=== PATIENT | male | born 1950 | race Caucasian/White ===

== ENCOUNTER 2020-12-03 11:30 | Outpatient (REF) | payer BC, SELFPAY ==
[2020-12-03 12:15] LABS: MANUAL DIFF FLAG NO
[2020-12-03 12:19] LABS: Basophils Absolute Auto 0.1 X10*3/uL (0.0-0.2); Basophils Percent Auto 0.8 % (0-2); Eosinophils Absolute Auto 0.2 X10*3/uL (0.0-0.4); Eosinophils Percent Auto 1.9 % (0-4); Hematocrit 44.9 % (42-52); Hemoglobin 15.6 g/dl (14.0-18.0); Imm Gran Abs Auto 0.04 X10*3/uL (0.00-0.03); Imm Gran Pct Auto 0.5 % (0.0-0.4); Lymphocytes Absolute Auto 2.1 X10*3/uL (1.2-4.9); Lymphocytes Percent Auto 25.8 % (20-40); Mean Corpuscular HGB Conc 34.7 g/dl (31.0-36.0); Mean Corpuscular Hemoglobin 33.1 pg (27.0-33.0); Mean Corpuscular Volume 95.1 fL (80-98); Mean Platelet Volume 10.2 fL (9.4-12.4); Monocytes Absolute Auto 0.9 X10*3/uL (0.1-1.2); Monocytes Percent Auto 11.4 % (2-11); Neutrophils Absolute Auto 4.8 X10*3/uL (2.0-8.3); Neutrophils Percent Auto 59.6 % (45-73); Platelet Count 220 X10*3/uL (160-400); Red Blood Count 4.72 X10*6/uL (4.60-5.80); Red Cell Distribution Width 13.2 % (11.0-16.0)
[2020-12-03 12:55] LABS: Alanine Aminotransferase 42 U/L (0-40); Albumin Level 4.2 g/dL (3.5-5.0); Alkaline Phosphatase 61 U/L (39-117); Anion Gap 13 (12-20); Aspartate Amino Transferase 27 U/L (5-37); Bilirubin Total 0.6 mg/dL (0.0-1.0); Blood Urea Nitrogen 19 mg/dL (9-16); Carbon Dioxide 27 mmol/L (22-29); Chloride 104 mmol/L (96-108); Cholesterol 180 mg/dL; Estimated Glomerular Filt Rate > 60; Glucose Fasting 100 mg/dL (60-99); HDL Cholesterol 55 mg/dL; LDL Cholesterol Calculated 98 mg/dl; Potassium 4.9 mmol/L (3.3-5.1); Sodium 139 mmol/L (135-145); Total Protein 6.6 g/dL (6.5-8.0); Triglycerides 135 mg/dL
[2020-12-03 13:05] LABS: Prostate Specific Antigen < 0.05 ng/mL (<0.05-4.0)
== END 2020-12-03 11:31 | disposition home or self-care (01) ==
LOC: HO.LAB 11:30
PROVIDERS: PCP Internal Medicine Medical Oncology; Visit Provider Internal Medicine Medical Oncology
DX: I10 Essential (primary) hypertension (principal); E78.2 Mixed hyperlipidemia; Z85.46 Personal history of malignant neoplasm of prostate
CPT/HCPCS: 36415; 80053; 80061; 84153; 85025

== ENCOUNTER → 2021-01-24 08:58 | Outpatient (BNVA) | payer BC, MEDICARE, SELFPAY | PROVIDERS: PCP Internal Medicine Medical Oncology; Visit Provider Family Medicine Adult Medicine ==

== ENCOUNTER → 2021-02-07 08:47 | Outpatient (BNVA) | payer BC, SELFPAY | PROVIDERS: PCP Internal Medicine Medical Oncology; Visit Provider Family Medicine Adult Medicine ==

== ENCOUNTER → 2021-03-07 08:55 | Outpatient (BNVA) | payer BC, SELFPAY | PROVIDERS: PCP Internal Medicine Medical Oncology; Visit Provider Family Medicine Adult Medicine ==

== ENCOUNTER → 2021-03-19 14:49 | Outpatient (BNVA) | payer BC, SELFPAY | PROVIDERS: PCP Internal Medicine Medical Oncology; Visit Provider Family Medicine Adult Medicine ==

== ENCOUNTER → 2021-04-16 11:26 | Outpatient (BNVA) | payer BC, SELFPAY | PROVIDERS: PCP Internal Medicine Medical Oncology; Visit Provider Family Medicine Adult Medicine ==

== ENCOUNTER → 2021-04-18 16:16 | Outpatient (BNVA) | payer BC, SELFPAY | PROVIDERS: PCP Internal Medicine Medical Oncology; Visit Provider Family Medicine Adult Medicine ==

== ENCOUNTER 2022-04-18 12:21 | Emergency (ER) | payer BC, MEDICARE, SELFPAY ==
--- NOTE | ~2022-04-18 | XR_ITS ---
EXAMINATION: XR CHEST CLINICAL INFORMATION: Shortness of breath COMPARISON: None TECHNIQUE: Frontal view of the chest was obtained. FINDINGS: No airspace consolidation, pleural effusion, pneumothorax. Normal heart size. No evidence pulmonary edema. There is fullness in the right paratracheal region with question of slight indentation on the right aspect of the trachea at the level of the sternal inlet. This may represent tortuous vessels or possibly a thyroid goiter or other mass. No acute osseous abnormality. Chronic/healed fractures of the left sixth and seventh ribs noted incompletely imaged posterior spinal fusion hardware in the lower thoracic and upper lumbar spine. XR/XR chest 1V IMPRESSION: 1. No acute pulmonary process. 2. Fullness in the right paratracheal region, which could be due to tortuous vessels, right paratracheal mass or thyroid goiter with substernal extension.
--- NOTE | ~2022-04-18 | CT_ITS ---
EXAMINATION: CT ANGIOGRAM OF THE CHEST WITH AND WITHOUT CONTRAST (CT PULMONARY ANGIOGRAM FOR PE) CLINICAL INFORMATION: Reason for Exam tachypnea, sedentary lifestyle/obese COMPARISON: None TECHNIQUE: Prior to contrast administration, noncontrast localization images were obtained. Subsequently, multidetector volumetric imaging was performed from the thoracic inlet to below the diaphragms following the administration of 100 mL Omnipaque 350 intravenous contrast. No contrast reaction reported Sagittal, coronal, and MIP oblique sagittal reformatted images were obtained on the CT workstation, uploaded to PACS, and reviewed. This CT examination was performed using dose optimization techniques as appropriate, variously including the following: *Automated exposure control *Adjustment of mA and/or kV according to patient size (this includes techniques or standardized protocols for targeted exams where dose is matched to indication/reason for exam; i.e. extremities or head) *Use of iterative reconstruction technique Total exam dose-length product 811 mGy-cm FINDINGS: QUALITY OF STUDY/CONTRAST BOLUS: Satisfactory. PULMONARY ARTERIES: No evidence of central or segmental pulmonary emboli. THORACIC AORTA: Mild focal ectasia of the distal aortic arch (image 20, axial series 5; image 54, coronal series 8). LUNG: No focal consolidation or suspicious mass. Left upper lung field calcified granulomata.. PLEURA: No pleural effusion or pneumothorax. MEDIASTINUM: Normal upper normal in size. No pericardial effusion. No hilar or mediastinal lymphadenopathy. No evidence of septal bowing or right heart strain. CHEST WALL/AXILLA: No axillary or internal mammary lymphadenopathy. OSSEOUS STRUCTURES: No acute finding. Transpedicular screws and rods extending roughly from T10 distally. Severe disc degenerative change at T8-T9. Osteoarthritis of the glenohumeral joints, left worse than right. Old, healed bilateral rib fractures. UPPER ABDOMEN: Status post cholecystectomy. No reflux of contrast into the hepatic veins to suggest elevated right heart pressures. CT/CT angio chest PE protocol IMPRESSION: No evidence of pulmonary embolism. Additional findings, as above. VTE: negative
[2022-04-18 12:26] VITALS: BP 180/78; PULSE 61; RESP 22; TEMP 36.8; O2SAT 95; BMI 42.3
--- NOTE | 2022-04-18 12:28 | ECG_ITS ---
Test Reason : SOB Blood Pressure : / mmHG Vent. Rate : 060 BPM Atrial Rate : 060 BPM P-R Int : 134 ms QRS Dur : 084 ms QT Int : 424 ms P-R-T Axes : 048 018 039 degrees QTc Int : 424 ms Normal sinus rhythm Normal ECG When compared with ECG of 24-MAR-2003 07:39, No significant change was found Referred By: Tracie Link Electronically Signed By:KRISHNA TEE
--- NOTE | 2022-04-18 12:44 | ED_ITS ---
HPI - SOB/Dyspnea General Chief Complaint: Dyspnea Stated Complaint: hypoxic, sob, trouble walking Time Seen by Provider: 04/18/22 12:28 Source: patient Mode of arrival: ambulatory Limitations: no limitations History of Present Illness HPI Narrative: 71-year-old male with a history of high cholesterol, hypertension, obesity, chronic back pain on morphine here with reports of shortness of breath worsening over the last few weeks. Patient was started on 40 mg of Lasix daily 1 week ago by his primary care doctor. He has been taking it daily. He lost 2 lb since starting it. Seen in the office today for follow-up with continued reports of dyspnea on exertion. Patient was noted to be quite tachypneic with moving around by his primary care doctor and he was brought into the emergency department for further evaluation. Patient denies any associated chest pain, cough, fever. He does feel like both of his lower legs are swollen but denies any pain. He has no history of blood clots. He is quite sedentary due to his chronic back pain. He has received 3 COVID vaccinations. He had COVID 1 month ago which he describes as sinus congestion/pain and no cough or shortness fo breath. Related Data Home Medications Medication Instructions Recorded Confirmed atorvastatin 20 mg tablet 20 mg PO DAILY 01/24/21 04/16/21 lisinopril 20 mg tablet 20 mg PO BID 01/24/21 04/16/21 meloxicam 15 mg tablet 15 mg PO DAILY 01/24/21 04/16/21 metoprolol tartrate 100 mg tablet 100 mg PO BID 01/24/21 04/16/21 prednisolone 5 mg tablet 5 mg PO DAILY 01/24/21 04/16/21 cholecalciferol (vitamin D3) 25 25 mcg PO DAILY 03/07/21 04/16/21 mcg (1,000 unit) capsule Previous Rx's Medication Instructions Recorded morphine 10 mg capsule,extended 10 mg PO Q12H 7 days #21 caps 04/16/21 release pellets doxycycline monohydrate 100 mg 100 mg PO BID #20 tabs 04/18/22 tablet Allergies Allergy/AdvReac Type Severity Reaction Status Date / Time No Known Allergies Allergy Verified 04/18/21 16:19 Review of Systems Review of Systems: Yes all other systems are reviewed and are negative Constitutional: Constitutional: Reports no additional constitutional complaints, Denies body ache(s), Denies chills, Denies fever(s), Denies headache(s) and Denies weakness Eyes: Eyes: Reports no additional eye complaints and Denies change in vision ENT: Reports system reviewed and no additional complaints, except as documented, Denies dizziness, Denies headache(s), Denies nasal congestion, Denies nasal discharge and Denies neck pain Cardiovascular: Cardiovascular: Reports no additional cardiovascular complaints, Denies chest pain, Reports leg edema and Reports dyspnea on exertion Respiratory: Respiratory: Reports no additional respiratory complaints, Denies cough and Reports dyspnea on exertion Gastrointestinal: Gastrointestinal: Reports no additional gastrointestinal complaints, Denies abdominal pain, Denies diarrhea, Denies nausea and Denies vomiting Genitourinary: Genitourinary: Denies urinary incontinence Musculoskeletal: Musculoskeletal: Reports no additional musculoskeletal complaints, Reports back pain (chronic back pain), Denies arthralgias, Denies joint swelling, Denies neck pain, Denies numbness and Denies tingling Integumentary/Breasts: Skin/Breast: Reports system reviewed and no additional complaints, except as docu and Denies rash Neurologic: Reports system reviewed and no additional complaints, except as documented, Denies Abnormal speech present, Denies dizziness, Denies headache(s), Denies numbness, Denies tingling and Denies weakness PMFSH Past Medical History Attestation statement: The following information was validated with the patient. Source: old records reviewed and nursing notes reviewed Medical History Cholelithiases Depression Failed back syndrome, lumbar Failed back syndrome, thoracic Hyperlipidemia Hypertension Lumbar radiculopathy Morbid obesity Neurogenic claudication Prostate cancer Spinal stenosis Surgical History H/O spinal fusion Social History Social History Patient Tobacco Use Status: Never used Tobacco Advance Directives: No Advance Directives Information Provided: No Physical Exam Vital Signs: Vital Signs: Last Vital Signs Temp 98.7 F 04/18/22 14:02 Pulse 51 04/18/22 16:51 Resp 13 04/18/22 16:51 BP 159/64 H 04/18/22 16:11 Pulse Ox 93 04/18/22 16:31 O2 Del Method 04/18/22 16:11 BMI result Body Mass Index 42.3 Const: General: cooperative, healthy appearing, comfortable and no acute distress Orientation/consciousness: patient oriented x3 Limitations: no limitations HEENT: Head: Yes normal to inspection Ears: hearing grossly normal bilaterally General nose exam: Normal external nose present Face and sinus: Yes normal facial exam Mouth: Normal oral and palatal mucosa present Throat: Yes posterior oropharynx normal Eyes: General: appearance normal, both eyes and all related structures Pupils: Equal, round and reactive pupils present Neck: Neck: Yes normal visual inspection Chest: Chest palpation & inspection: normal inspection of the chest Resp: Other: mild tachypnea with rate 22-24 at rest Auscultation: clear to auscultation bilaterally Cardio: Rate: regular rate Rhythm: regular rhythm Peripheral pulses: Peripheral pulses 2+ throughout GI: Inspection: Yes normal to inspection Palpation (GI): Soft to palpation and nontender Auscultation: normal bowel sounds Back/Spine/Pelvis: Thoracic/Lumbar Spine: thoracic and lumbar spine normal to inspection Skin: General skin exam: no rashes or lesions noted Neuro: General: patient oriented x3, no focal motor deficits and normal sensation to monofilament Cranial nerves: Yes Equal, round and reactive pupils present Cognition (Neuro): normal cognition Speech: No Abnormal speech present Gait exam (Neuro): Normal gait present Motor exam (neuro): 5/5 motor strength present throughout Extrem: General: Yes normal to inspection, Yes no pedal edema and Yes no calf tenderness Course Reevaluation(s) Reevaluation #1: 1400- Labs are unremarkable with the exception of an indeterminate troponin. EKG shows no ischemic changes. COVID screen is positive. Patient tells me he tested positive for COVID 1 month ago with symptoms of sinus congestion and pain which lasted approximately 2-3 days and then self-resolved. Likely patient is continuing to test positive. Low concern for reinfection. Patient is continues to be tachypneic with very little exertion with clear lung sounds. Patient has multiple risk factors for PE. Will obtain CTA to rule out Reevaluation #2: 0045- CTA is negative for PE. Repeat troponin pending. Patient was ambulated by the cardiac cath technician with a pulse oximeter to bathroom approximately 40 steps. His respiratory rate ranged from 22-23. His oxygen saturation is >93%. Independently reviewed CT of chest. Roderick findings seen throughout. Consider underlying airway disease or infiltrative disease secondary to recent COVID infection. Also consider long COVID. Will trial albuterol MDI. Patient currently on low dose prednisone taper for his chronic back pain. Took 10mg today. Will recommend 5 days of 40mg. Will give additional dose 30mg while here. Will pardeep t with course of antibiotics. Will discuss with primary care for follow-up this patient does not qualify for inpatient admission Reevaluation #3: 3398- I discussed the patient with his primary care doctor Dr. English. We discussed continuing Lasix at home, low-dose prednisone, course of antibiotics at home. He will follow up with the patient in the morning. I did review worrisome signs and symptoms with the patient and [facility] Comfortable with discharge home MDM - SOB/Dyspnea MDM Narrative Medical decision making narrative: 71-year-old male with history of high blood pressure, hypertension, obesity, chronic back pain on morphine here with reports of tachypnea over the last few weeks despite starting Lasix. Patient has multiple risk factors for PE including sedentary lifestyle, obesity, prostate cancer history. On arrival he has apnea with a rate of 22-24 at rest. This is worsened with any exertion. No cough. Clear lung sounds. Will check labs, EKG, chest x-ray, COVID screen. - considered PE, negative CTA here - considered ACS. low concern with no associated chest pain, nausea, diaph oresis with a normal EKG and 2 troponins that are negative. Differential Diagnosis Differential diagnosis: Likely congestive heart failure, pneumonia and pulmonary embolism Medical Records Attestation: I reviewed the patient's medical records. Lab Data Attestation: I reviewed the patient's lab results. Result diagrams: 04/18/22 13:07 04/18/22 13:07 Labs: Lab Results 04/18/22 04/18/22 04/18/22 Range/Units 13:07 13:07 13:07 WBC 6.3 (4.8-10.8) X10*3/uL RBC 4.55 L (4.60-5.80) X10*6/uL Hgb 15.2 (14.0-18.0) g/dl Hct 43.2 (42.0-52.0) % MCV 94.9 (80.0-98.0) fL MCH 33.4 H (27.0-33.0) pg MCHC 35.2 (31.0-36.0) g/dl RDW 13.3 (11.0-16.0) % Plt Count 187 (160-400) X10*3/uL MPV 10.0 (9.4-12.4) fL Immature Gran % (Auto) 0.5 H (0.0-0.4) % Neut % (Auto) 70.8 (45-73) % Lymph % (Auto) 20.0 (20-40) % Barron % (Auto) 7.9 (2-11) % Eos % (Auto) 0.3 (0-4) % Baso % (Auto) 0.5 (0-2) % Lymph # (Auto) 1.3 (1.2-4.9) X10*3/uL Barron # (Auto) 0.5 (0.1-1.2) X10*3/uL Eos # (Auto) 0.0 (0.0-0.4) X10*3/uL Baso # (Auto) 0.0 (0.0-0.2) X10*3/uL Abs Immat Gran (auto) 0.03 (0.00-0.03) X10*3/uL Absolute Neuts (auto) 4.5 (2.0-8.3) x10*3/uL Absolute Nucleated RBC 0.000 (0.0-0.012) X10*3/uL Nucleated RBC % (auto) 0.0 (0.0-0.2) /100WBC D-Dimer High Sensitivty < 150 NG/ML VBG pH (7.32-7.43) VBG pCO2 mmHg VBG pO2 mmHg VBG HCO3 (22-26) mmol/L VBG O2 Saturation % VBG Base Excess mmol/L Sodium 139 (135-145) mmol/L Potassium 4.1 (3.3-5.1) mmol/L Chloride 103 (96-108) mmol/L Carbon Dioxide 26 (22-29) mmol/L Anion Gap 14 (12-20) BUN 21 H (9-16) mg/dL Creatinine 0.98 (0.5-1.4) mg/dL Estim Creat Clear Calc 103.8 Estimated GFR > 60 Random Glucose 135 H (60-115) mg/dL Lactic Acid (0.5-2.0) mmol/L Calcium 8.8 D (8.4-10.2) mg/dL Magnesium 1.9 (1.6-2.6) mg/dL Total Bilirubin 0.8 (0.0-1.0) mg/dL AST 22 (5-37) U/L ALT 33 (0-40) U/L Alkaline Phosphatase 48 D (39-117) U/L Troponin I High Sens (<3.5-35.0) ng/L B-Natriuretic Peptide (<100) pg/mL Total Protein 6.6 (6.5-8.0) g/dL Albumin 4.2 (3.5-5.0) g/dL Urine Color Urine Appearance Urine pH (5.0-8.0) Ur Specific [place] (1.005-1.025) Urine Protein (NEG-TRACE) MG/DL Urine Glucose (UA) (NEG) MG/DL Urine Ketones (NEG) MG/DL Urine Blood (NEG) Urine Nitrite (NEG) Ur Leukocyte Esterase (NEG) COVID-19 (ISMA) (Negative) COVID-19 Clin Com Influenza Type A (JELANI) (Negative) Influenza Type B (JELANI) (Negative) Influenza A & B Note 04/18/22 04/18/22 04/18/22 Range/Units 13:07 13:07 13:07 WBC (4.8-10.8) X10*3/uL RBC (4.60-5.80) X10*6/uL Hgb (14.0-18.0) g/dl Hct (42.0-52.0) % MCV (80.0-98.0) fL MCH (27.0-33.0) pg MCHC (31.0-36.0) g/dl RDW (11.0-16.0) % Plt Count (160-400) X10*3/uL MPV (9.4-12.4) fL Immature Gran % (Auto) (0.0-0.4) % Neut % (Auto) (45-73) % Lymph % (Auto) (20-40) % Barron % (Auto) (2-11) % Eos % (Auto) (0-4) % Baso % (Auto) (0-2) % Lymph # (Auto) (1.2-4.9) X10*3/uL Barron # (Auto) (0.1-1.2) X10*3/uL Eos # (Auto) (0.0-0.4) X10*3/uL Baso # (Auto) (0.0-0.2) X10*3/uL Abs Immat Gran (auto) (0.00-0.03) X10*3/uL Absolute Neuts (auto) (2.0-8.3) x10*3/uL Absolute Nucleated RBC (0.0-0.012) X10*3/uL Nucleated RBC % (auto) (0.0-0.2) /100WBC D-Dimer High Sensitivty NG/ML VBG pH (7.32-7.43) VBG pCO2 mmHg VBG pO2 mmHg VBG HCO3 (22-26) mmol/L VBG O2 Saturation % VBG Base Excess mmol/L Sodium (135-145) mmol/L Potassium (3.3-5.1) mmol/L Chloride (96-108) mmol/L Carbon Dioxide (22-29) mmol/L Anion Gap (12-20) BUN (9-16) mg/dL Creatinine (0.5-1.4) mg/dL Estim Creat Clear Calc Estimated GFR Random Glucose (60-115) mg/dL Lactic Acid 1.9 (0.5-2.0) mmol/L Calcium (8.4-10.2) mg/dL Magnesium (1.6-2.6) mg/dL Total Bilirubin (0.0-1.0) mg/dL AST (5-37) U/L ALT (0-40) U/L Alkaline Phosphatase (39-117) U/L Troponin I High Sens 31.0 (<3.5-35.0) ng/L B-Natriuretic Peptide (<100) pg/mL Total Protein (6.5-8.0) g/dL Albumin (3.5-5.0) g/dL Urine Color Urine Appearance Urine pH (5.0-8.0) Ur Specific [place] (1.005-1.025) Urine Protein (NEG-TRACE) MG/DL Urine Glucose (UA) (NEG) MG/DL Urine Ketones (NEG) MG/DL Urine Blood (NEG) Urine Nitrite (NEG) Ur Leukocyte Esterase (NEG) COVID-19 (ISMA) (Negative) COVID-19 Clin Com Influenza Type A (JELANI) Negative (Negative) Influenza Type B (JELANI) Negative (Negative) Influenza A & B Note See Note 04/18/22 04/18/22 04/18/22 Range/Units 13:07 13:07 13:15 WBC (4.8-10.8) X10*3/uL RBC (4.60-5.80) X10*6/uL Hgb (14.0-18.0) g/dl Hct (42.0-52.0) % MCV (80.0-98.0) fL MCH (27.0-33.0) pg MCHC (31.0-36.0) g/dl RDW (11.0-16.0) % Plt Count (160-400) X10*3/uL MPV (9.4-12.4) fL Immature Gran % (Auto) (0.0-0.4) % Neut % (Auto) (45-73) % Lymph % (Auto) (20-40) % Barron % (Auto) (2-11) % Eos % (Auto) (0-4) % Baso % (Auto) (0-2) % Lymph # (Auto) (1.2-4.9) X10*3/uL Barron # (Auto) (0.1-1.2) X10*3/uL Eos # (Auto) (0.0-0.4) X10*3/uL Baso # (Auto) (0.0-0.2) X10*3/uL Abs Immat Gran (auto) (0.00-0.03) X10*3/uL Absolute Neuts (auto) (2.0-8.3) x10*3/uL Absolute Nucleated RBC (0.0-0.012) X10*3/uL Nucleated RBC % (auto) (0.0-0.2) /100WBC D-Dimer High Sensitivty NG/ML VBG pH 7.48 H (7.32-7.43) VBG pCO2 27 mmHg VBG pO2 136 mmHg VBG HCO3 20 L (22-26) mmol/L VBG O2 Saturation 99.0 % VBG Base Excess -1.0 mmol/L Sodium (135-145) mmol/L Potassium (3.3-5.1) mmol/L Chloride (96-108) mmol/L Carbon Dioxide (22-29) mmol/L Anion Gap (12-20) BUN (9-16) mg/dL Creatinine (0.5-1.4) mg/dL Estim Creat Clear Calc Estimated GFR Random Glucose (60-115) mg/dL Lactic Acid (0.5-2.0) mmol/L Calcium (8.4-10.2) mg/dL Magnesium (1.6-2.6) mg/dL Total Bilirubin (0.0-1.0) mg/dL AST (5-37) U/L ALT (0-40) U/L Alkaline Phosphatase (39-117) U/L Troponin I High Sens (<3.5-35.0) ng/L B-Natriuretic Peptide 91 (<100) pg/mL Total Protein (6.5-8.0) g/dL Albumin (3.5-5.0) g/dL Urine Color Urine Appearance Urine pH (5.0-8.0) Ur Specific [place] (1.005-1.025) Urine Protein (NEG-TRACE) MG/DL Urine Glucose (UA) (NEG) MG/DL Urine Ketones (NEG) MG/DL Urine Blood (NEG) Urine Nitrite (NEG) Ur Leukocyte Esterase (NEG) COVID-19 (ISMA) Positive A (Negative) COVID-19 Clin Com See Note Influenza Type A (JELANI) (Negative) Influenza Type B (JELANI) (Negative) Influenza A & B Note 04/18/22 04/18/22 Range/Units 16:44 16:44 WBC (4.8-10.8) X10*3/uL RBC (4.60-5.80) X10*6/uL Hgb (14.0-18.0) g/dl Hct (42.0-52.0) % MCV (80.0-98.0) fL MCH (27.0-33.0) pg MCHC (31.0-36.0) g/dl RDW (11.0-16.0) % Plt Count (160-400) X10*3/uL MPV (9.4-12.4) fL Immature Gran % (Auto) (0.0-0.4) % Neut % (Auto) (45-73) % Lymph % (Auto) (20-40) % Barron % (Auto) (2-11) % Eos % (Auto) (0-4) % Baso % (Auto) (0-2) % Lymph # (Auto) (1.2-4.9) X10*3/uL Barron # (Auto) (0.1-1.2) X10*3/uL Eos # (Auto) (0.0-0.4) X10*3/uL Baso # (Auto) (0.0-0.2) X10*3/uL Abs Immat Gran (auto) (0.00-0.03) X10*3/uL Absolute Neuts (auto) (2.0-8.3) x10*3/uL Absolute Nucleated RBC (0.0-0.012) X10*3/uL Nucleated RBC % (auto) (0.0-0.2) /100WBC D-Dimer High Sensitivty NG/ML VBG pH (7.32-7.43) VBG pCO2 mmHg VBG pO2 mmHg VBG HCO3 (22-26) mmol/L VBG O2 Saturation % VBG Base Excess mmol/L Sodium (135-145) mmol/L Potassium (3.3-5.1) mmol/L Chloride (96-108) mmol/L Carbon Dioxide (22-29) mmol/L Anion Gap (12-20) BUN (9-16) mg/dL Creatinine (0.5-1.4) mg/dL Estim Creat Clear Calc Estimated GFR Random Glucose (60-115) mg/dL Lactic Acid (0.5-2.0) mmol/L Calcium (8.4-10.2) mg/dL Magnesium (1.6-2.6) mg/dL Total Bilirubin (0.0-1.0) mg/dL AST (5-37) U/L ALT (0-40) U/L Alkaline Phosphatase (39-117) U/L Troponin I High Sens 32.3 (<3.5-35.0) ng/L B-Natriuretic Peptide (<100) pg/mL Total Protein (6.5-8.0) g/dL Albumin (3.5-5.0) g/dL Urine Color YELLOW Urine Appearance CLEAR Urine pH 6.5 (5.0-8.0) Ur Specific [place] 1.010 (1.005-1.025) Urine Protein NEG (NEG-TRACE) MG/DL Urine Glucose (UA) NEG (NEG) MG/DL Urine Ketones NEG (NEG) MG/DL Urine Blood NEG (NEG) Urine Nitrite NEG (NEG) Ur Leukocyte Esterase NEG (NEG) COVID-19 (ISMA) (Negative) COVID-19 Clin Com Influenza Type A (JELANI) (Negative) Influenza Type B (JELANI) (Negative) Influenza A & B Note Imaging Data Chest x-ray: Attestation: I personally reviewed and interpreted this imaging study as follows: Radiologist's impression: [address] [address] XRay Report Signed Patient: Keagan Murray MR#: [id number] : 1950 Acct:[id number] Age/Sex: 71 / M ADM Date: 04/18/22 Loc: .ED Attending Dr: Ordering Physician: Tracie Link Date of Service: 04/18/22 Procedure(s): XR chest 1V Accession Number(s): [id number] cc: Tracie Link~ EXAMINATION: XR CHEST CLINICAL INFORMATION: Shortness of breath COMPARISON: None TECHNIQUE: Frontal view of the chest was obtained. FINDINGS: No airspace consolidation, pleural effusion, pneumothorax. Normal heart size. No evidence pulmonary edema. There is fullness in the right paratracheal region with question of slight indentation on the right aspect of the trachea at the level of the sternal inlet. This may represent tortuous vessels or possibly a thyroid goiter or other mass. No acute osseous abnormality. Chronic/healed fractures of the left sixth and seventh ribs noted incompletely imaged posterior spinal fusion hardware in the lower thoracic and upper lumbar spine. XR/XR chest 1V IMPRESSION: ? 1. No acute pulmonary process. 2. Fullness in the right paratracheal region, which could be due to tortuous vessels, right paratracheal mass or thyroid goiter with substernal extension. ? CT scan - chest: Attestation: I personally reviewed and interpreted this imaging study as follows: Radiologist's impression: FINDINGS: QUALITY OF STUDY/CONTRAST BOLUS: Satisfactory. PULMONARY ARTERIES: No evidence of central or segmental pulmonary emboli.? THORACIC AORTA: Mild focal ectasia of the distal aortic arch (image 20, axial series 5; image 54, coronal series 8). LUNG: No focal consolidation or suspicious mass. Left upper lung field calcified granulomata.. PLEURA: No pleural effusion or pneumothorax. MEDIASTINUM: Normal upper normal in size. No pericardial effusion.? No hilar or mediastinal lymphadenopathy.? No evidence of septal bowing or right heart strain. CHEST WALL/AXILLA: No axillary or internal mammary lymphadenopathy. OSSEOUS STRUCTURES: No acute finding. Transpedicular screws and rods extending roughly from T10 distally. Severe disc degenerative change at T8-T9. Osteoarthritis of the glenohumeral joints, left worse than right. Old, healed bilateral rib fractures. UPPER ABDOMEN: Status post cholecystectomy.? No reflux of contrast into the hepatic veins to suggest elevated right heart pressures. CT/CT angio chest PE protocol IMPRESSION: ? No evidence of pulmonary embolism. ? Additional findings, as above. ? ? ECG Data Attestation: I personally reviewed and interpreted this ECG as follows: ECG interpretation date: 04/18/22 ECG interpretation time: 12:41 Interpretation: normal sinus rhythm with a rate of 60, normal DE, normal QRS, Q-wave noted in lead 3 Discharge Plan Discharge Clinical Impression: Mild shortness of breath Patient Disposition: Home, Self-Care Instructions: Shortness of Breath (ED) Additional Instructions: Continue lasix 40mg daily Increase prednisone to 20 mg daily starting tomorrow Use the inhaler as needed Call Dr English cell phone tomorrow 9am to discuss how you are feeling return for increasing shortness of breath, chest pain associated with shortness of breath, fever Prescriptions: New doxycycline monohydrate 100 mg tablet 100 mg PO BID Qty: 20 0RF No Action lisinopril 20 mg tablet 20 mg PO BID metoprolol tartrate 100 mg tablet 100 mg PO BID atorvastatin 20 mg tablet 20 mg PO DAILY prednisolone 5 mg tablet 5 mg PO DAILY meloxicam 15 mg tablet 15 mg PO DAILY morphine 10 mg capsule,extend.release pellets 10 mg PO Q12H 7 Days Qty: 21 0RF cholecalciferol (vitamin D3) 25 mcg (1,000 unit) capsule 25 mcg PO DAILY Referrals: Curtis English MD [Primary Care Provider] - 1 day Interventions: ED Discharge Assessment Last Done: 04/18/22 18:12 Discharge Date/Time: 04/18/22 18:14
[2022-04-18 13:16] LABS: MANUAL DIFF FLAG NO
[2022-04-18 13:17] LABS: Basophils Percent Auto 0.5 % (0-2); Eosinophils Percent Auto 0.3 % (0-4); Hematocrit 43.2 % (42.0-52.0); Hemoglobin 15.2 g/dl (14.0-18.0); Imm Gran Abs Auto 0.03 X10*3/uL (0.00-0.03); Imm Gran Pct Auto 0.5 % (0.0-0.4); Lymphocytes Absolute Auto 1.3 X10*3/uL (1.2-4.9); Mean Corpuscular HGB Conc 35.2 g/dl (31.0-36.0); Mean Corpuscular Hemoglobin 33.4 pg (27.0-33.0); Mean Corpuscular Volume 94.9 fL (80.0-98.0); Monocytes Absolute Auto 0.5 X10*3/uL (0.1-1.2); Monocytes Percent Auto 7.9 % (2-11); Neutrophils Absolute Auto 4.5 x10*3/uL (2.0-8.3); Neutrophils Percent Auto 70.8 % (45-73); Platelet Count 187 X10*3/uL (160-400); Red Blood Count 4.55 X10*6/uL (4.60-5.80); Red Cell Distribution Width 13.3 % (11.0-16.0); White Blood Count 6.3 X10*3/uL (4.8-10.8)
--- NOTE | 2022-04-18 13:19 | PC.NURSE ---
Patient A/OX4 . pearlla . lungs clear . skin pink warm and dry . abdomen soft and non distended . positive bowel sounds in all four quadrants. non -pitting moderate amount of edema noted bilaterally in lower extremities in patients ankles by this RN . patient uses cane to ambulate . 20 gauge IV placed in left hand , patient tolerated well . labs sent for analysis . patient aware of plan of care .
[2022-04-18 13:20] LABS: VBG HCO3 20 mmol/L (22-26); VBG pCO2 27 mmHg; VBG pH 7.48 (7.32-7.43); VBG pO2 136 mmHg
[2022-04-18 13:24] LABS: COVID-19 Test Positive (Negative); IDNOW Serial# 55D5AD1C
[2022-04-18 13:25] LABS: D Dimer High Sensitivity < 150 NG/ML
[2022-04-18 13:29] LABS: Venous Blood Gas Refer to POC result
[2022-04-18 13:30] LABS: Influenza A Negative (Negative); Influenza B2 Negative (Negative)
[2022-04-18 13:33] LABS: Lactic Acid 1.9 mmol/L (0.5-2.0)
[2022-04-18 13:39] LABS: Alanine Aminotransferase 33 U/L (0-40); Albumin Level 4.2 g/dL (3.5-5.0); Alkaline Phosphatase 48 U/L (39-117); Anion Gap 14 (12-20); Aspartate Amino Transferase 22 U/L (5-37); Bilirubin Total 0.8 mg/dL (0.0-1.0); Blood Urea Nitrogen 21 mg/dL (9-16); Calcium 8.8 mg/dL (8.4-10.2); Carbon Dioxide 26 mmol/L (22-29); Chloride 103 mmol/L (96-108); Creatinine Clr Calc Pharmacy 103.8; Estimated Glomerular Filt Rate > 60; Glucose Random 135 mg/dL (60-115); Magnesium 1.9 mg/dL (1.6-2.6); Potassium 4.1 mmol/L (3.3-5.1); Sodium 139 mmol/L (135-145); Total Protein 6.6 g/dL (6.5-8.0)
[2022-04-18 13:45] LABS: B Type Natriuretic Peptide 91 pg/mL (<100)
[2022-04-18 14:02] VITALS: BP 164/85; PULSE 54; RESP 16; TEMP 37.1; O2SAT 95
[2022-04-18] MEDS: iohexoL 350 MG/ML 100 ML INFUS..BTL IV (14:58)
[2022-04-18 16:11] VITALS: BP 159/64; PULSE 55; RESP 18; O2SAT 96
[2022-04-18 16:31] VITALS: O2SAT 93
--- NOTE | 2022-04-18 16:31 | PC.NURSE ---
PATIENT WAS AMBULATED (02)95 PRIOR TO AMBULATION (DC)58. PATIENTS (O2) DROPPED TO 93 AND (DC) WAS 78 RESPIRATIONS 22 AFTER WALKING TO BATHROOM.
[2022-04-18] MEDS: Albuterol Sulfate 90 MCG 8 GM INHALER 2 PUFF INHALE (16:49)
[2022-04-18 16:50] LABS: Appearance Urine CLEAR; Color Urine YELLOW; Glucose Urine UA NEG (NEG); Leukocyte Esterase Urine NEG (NEG); Nitrite Urine NEG (NEG); PH 6.5 (5.0-8.0); Urine Blood NEG (NEG); Urine Ketones NEG (NEG); Urine Protein NEG (NEG-TRACE)
[2022-04-18 16:51] VITALS: PULSE 51; RESP 13; O2SAT 95
[2022-04-18] MEDS: predniSONE 10 MG TABLET 30 MG PO (17:10)
[2022-04-18 17:11] LABS: Troponin-I High Sensitivity 32.3 ng/L (<3.5-35.0)
== END 2022-04-18 18:14 | disposition home or self-care (01) ==
PROVIDERS: Nurse Practitioner Family; Physician Assistant Medical; Emergency Provider Emergency Medicine Emergency Medical Services; PCP Internal Medicine Medical Oncology
DX: R06.02 Shortness of breath (principal); R26.2 Difficulty in walking, not elsewhere classified; M54.50 Low back pain, unspecified; Z79.899 Other long term (current) drug therapy; Z20.822 Contact with and (suspected) exposure to COVID-19
CPT/HCPCS: 36415; 71045; 71275; 80053; 81003; 82803; 83605; 83735; 83880; 84484; 85025; 85379; 87040; 87147; 87205; 87502; 87635; 93005; 94640; 99285; Q9967

== ENCOUNTER → 2022-09-29 15:11 | Outpatient (REF) | payer BC, MEDICARE, SELFPAY ==
--- NOTE | 2022-09-29 15:16 | CA_ITS ---
Transthoracic Echocardiogram Patient (Last, First, Middle): Keagan Murray, Gender: Male Date of : 1950 Age: 72 Procedure Date: 09/29/2022 Procedure Type: Transthoracic Echocardiogram Location: OP Height: 182.88 cm Weight: 141.52 kg BSA: 2.57 m2 Heart Rate: bpm BP: 146 / 82 mmHg Certified Tumor Registrar: ALLAN Referring MD: Curtis English MD Symptoms: R06.02 SOB I50.9 ACUTE CHF Study Quality: Technically Difficult, contrast useed ECG Rhythm: Sinus Conclusions: - The left ventricular systolic function is hyperdynamic. The visually estimated ejection fraction is >70%. - No obvious valvular pathology seen on this study. Findings Procedure Information Contrast agent, definity, is being given per protocol without apparent complications. Left Ventricle Normal left ventricular cavity size. There is moderately increased left ventricular wall thickness. The left ventricular systolic function is hyperdynamic. The visually estimated ejection fraction is >70%. There is no evidence of regional wall motion abnormalities. Diastolic function is normal for age. Right Ventricle Mildly increased right ventricular cavity size. There is normal right ventricular systolic function. Atria The left atrium is normal in size. The right atrium is normal in size. Aortic Valve There is a normal trileaflet aortic valve. There is mild calcification of the aortic valve. There is no aortic valve stenosis. There is no aortic valve regurgitation. Mitral Valve The mitral valve appears normal. There is mild mitral annular calcification. There is no mitral valve stenosis. Pulmonic Valve The pulmonic valve is likely normal. Tricuspid Valve Normal tricuspid valve structure. There is trace tricuspid valve regurgitation. There is no evidence of pulmonary hypertension. Great Vessels The asc aorta is normal in size. Small plaque is seen in the sino tubular ridge. Venous The inferior vena cava is mildly dilated. Inferior vena cava flow is normal. Pericardium/Pleural There is no evidence of pericardial effusion. Prior Study Comparison Changes noted compared to prior study dated: 02/21/2020. LVH more pronounced. Recommendations, Care & Conclusions No obvious valvular pathology seen on this study. Measurements 2D Linear Measurements IVSd: 1.45 0.6-0.9/0.6-1.0 cm LVIDd: 4.16 3.9-5.3/4.2-5.9 cm LVIDd Index: 1.62 2.4-3.2/2.2-3.1 cm/m2 LVIDs: 2.62 2.0-3.6 cm LVPWd: 1.40 0.7-1.1 cm LA Diam: 4.50 2.7-3.8/3.0-4.0 cm LAIDs Index: 1.75 1.5-2.3 cm/m2 LV Mass: 283.38 67-162/88-224 g LV Mass Index: 110.26 43-95/49-115 g/m2 LVOT Diam: 2.20 3.0+(-)1.3 cm 2D Systolic Function EF 4C: 74.00 >55% EF 2C: 69.90 >55% EF BiP: 72.40 >55% Mitral Valve MV Pk E: 0.60 MV PK A: 0.69 MV Decel Time: 327.00 E/A: 0.90 E'Lateral: 8.27 E'Medial: 4.68 E/E' Med: 12.90 E/E' Lat: 7.30 PHT: 96.00 MVA PHT: 2.29 Decel [place]: 1.84 Aortic Valve AoV Pk Az: 1.55 AoV Mn Az: 1.06 AoV VTI: 0.37 AoV Pk Grad: 10.00 Aov Mn Grad: 5.00 TAMARA Cont.VTI: 2.56 LVOT LVOT Pk Za: 0.89 LVOT Mn Az: 0.63 LVOT VTI: 0.25 LVOT Pk Grad: 3.00 LVOT Mn Grad: 2.00 LVOT Diam: 2.20 LVOT Area: 3.80 Diastolic Function MV Pk E: 0.60 MV Pk A: 0.69 E/A: 0.90 E'Medial: 4.68 E/E' Med: 12.90 E' Laterial: 8.27 E/E' Lat: 7.30 Right Ventricle TAPSE (mm): 20.30 TVS' Az: 21.40 Tricuspid Valve TR Pk Az: 2.08 TR Pk Grad: 17.00 RA Press: 8.00 RVSP: 25.00 Great Vessels Aorta Sinus of Valsalva: 3.80 2.0-3.[address] Ridge: 3.02 1.7-3.4 cm Ao Asc: 3.80 2.1-3.4 cm Updated in Other Vendor System with Status of Final Ismael Gilbert MD electronically signed on 09/30/2022 10:38:54 AM with status of Final
== END ==
LOC: HO.CARD 15:11
PROVIDERS: Visit Provider Internal Medicine Medical Oncology
DX: R06.02 Shortness of breath (principal); I50.9 Heart failure, unspecified
CPT/HCPCS: 93306; Q9957

== ENCOUNTER 2022-10-01 10:24 | Outpatient (REF) | payer BC, MEDICARE, SELFPAY ==
--- NOTE | 2022-10-01 | PFT_ITS ---
INDICATION: Dyspnea on exertion. SPIROMETRY: FEV1 to FVC 70% with an FEV1 of 2.64 L, which is 75% predicted, and FVC of 3.74 L which is 78% predicted. No significant response to bronchodilators noted. Maximum voluntary ventilation 61% predicted. LUNG VOLUMES: Total lung capacity 79% predicted with an expiratory reserve volume of 12% predicted. DIFFUSION CAPACITY: DLCO 82% predicted. COMPARISONS: None. INTERPRETATION: There is an obstructive ventilatory defect consistent with moderate COPD. No significant response to bronchodilators noted. There is some evidence of small airways disease, likely secondary to the COPD and also his body habitus. The patient does have a moderate decrease in maximum voluntary ventilation secondary to likely deconditioning. Lung volumes demonstrate a restrictive ventilatory defect consistent with mild restrictive lung disease. Also has a significantly low expiratory reserve volume secondary to his elevated BMI. His diffusion capacity is within normal limits. Clinical correlation warranted. Talib Triplett MD MR/MODL / [id number]
== END 2022-10-01 10:25 | disposition home or self-care (01) ==
LOC: HO.RESP 10:24
PROVIDERS: PCP Internal Medicine Medical Oncology; Visit Provider Internal Medicine Medical Oncology
DX: R06.02 Shortness of breath (principal); I50.9 Heart failure, unspecified
CPT/HCPCS: 94060; 94727; 94729

== ENCOUNTER 2023-11-22 21:06 | Emergency (ER) | payer BC, SELFPAY ==
[2023-11-22 21:23] VITALS: BP 124/76; BP 140/60; PULSE 70; PULSE 74; RESP 18; TEMP 36.5; O2SAT 94; O2SAT 96; BMI 43.4
--- NOTE | 2023-11-22 21:38 | ECG_ITS ---
Test Reason : FALL Blood Pressure : / mmHG Vent. Rate : 072 BPM Atrial Rate : 072 BPM P-R Int : 152 ms QRS Dur : 082 ms QT Int : 400 ms P-R-T Axes : 033 014 009 degrees QTc Int : 438 ms Normal sinus rhythm Nonspecific ST and T wave abnormality Borderline ECG When compared with ECG of 18-APR-2022 12:41, Nonspecific ST and T wave abnormality noted. Referred By: Jackie Sue Electronically Signed By:KRISHNA TEE
--- NOTE | 2023-11-22 21:52 | ED_ITS ---
HPI - Fall General Chief Complaint: Fall Stated Complaint: weakness fall Time Seen by Provider: 11/22/23 21:29 Source: patient and old records reviewed Mode of arrival: EMS Limitations: no limitations History of Present Illness HPI Narrative: 73 yo male with PMH of chronic back pain, HLD, obesity, HTN, not on blood thinners here with c/o drinking with a friend tonight then going home he tried to get out of the chair but has prior surgery to left hip had a hard time was able to he then was walking and his left leg hasn't done well since the surgery due to a weak psoas and he fell. Denies trauma no headstrike was on the ground for 5 minutes. He denies injury to L hip and states he has no concern for fracture. He states he is embarrassed and he called his PCP who advised he get checked out. MD complaint: fall Onset (ago): minute(s) (prior to arrival ) Fall from: standing Fall witnessed: no Place fall occurred: home Loss of consciousness: none Prolonged down time: no Symptoms prior to fall: none Context: history of frequent falls Severity: mild Associated symptoms (after fall): denies and other (he states tonight he just has a hard time getting up out of his chair without assistance) Related Data Home Medications Medication Instructions Recorded Confirmed atorvastatin 20 mg tablet 20 mg PO DAILY 01/24/21 04/16/21 lisinopril 20 mg tablet 20 mg PO BID 01/24/21 04/16/21 meloxicam 15 mg tablet 15 mg PO DAILY 01/24/21 04/16/21 metoprolol tartrate 100 mg tablet 100 mg PO BID 01/24/21 04/16/21 prednisolone 5 mg tablet 5 mg PO DAILY 01/24/21 04/16/21 cholecalciferol (vitamin D3) 25 25 mcg PO DAILY 03/07/21 04/16/21 mcg (1,000 unit) capsule Previous Rx's Medication Instructions Recorded morphine 10 mg capsule,extended 10 mg PO Q12H 7 days #21 caps 04/16/21 release pellets doxycycline monohydrate 100 mg 100 mg PO BID #20 tabs 04/18/22 tablet Allergies Allergy/AdvReac Type Severity Reaction Status Date / Time No Known Allergies Allergy Verified 04/18/21 16:19 Review of Systems 2 Review of Systems: Constitutional : No Fever, No Chills, No Fatigue ENT/Mouth : No sore throat, No Rhinorrhea Eyes: No Eye Pain, No Swelling, No Redness Cardiovascular : No Chest Pain, No SOB, No Dyspnea on Exertion Respiratory : No Cough, No Sputum Gastrointestinal : No Nausea, No Vomiting, No Diarrhea, No abdominal Pain Genitourinary : No Dysuria, No Urinary Frequency, No Hematuria, Musculoskeletal : No joint pain, No Myalgias, No Joint Swelling Skin : No Skin Lesions, No rash Neuro : No Weakness, No Numbness, No Dizziness, no Headache Psych : No Anxiety/Panic, No Depression All other systems reviewed and are negative [facility] Past Medical History Attestation statement: The following information was validated with the patient. Source: old records reviewed Medical History Failed back syndrome, thoracic Failed back syndrome, lumbar Hyperlipidemia Depression Cholelithiases Prostate cancer Morbid obesity Neurogenic claudication Spinal stenosis Lumbar radiculopathy Hypertension Surgical History H/O spinal fusion Social History Social History Patient Tobacco Use Status: Never used Tobacco Advance Directives: No Advance Directives Information Provided: No Physical Exam 2 Vital Signs: Vital Signs: Last Vital Signs Temp 97.6 F 11/23/23 01:58 Pulse 71 11/23/23 01:58 Resp 18 11/23/23 01:58 BP 166/74 H 11/23/23 01:58 Pulse Ox 97 11/23/23 01:58 O2 Del Method Room Air 11/23/23 01:58 BMI result Body Mass Index 43.4 Appearance: Alert. Oriented X3. No acute distress. Eyes: Pupils equal, round and reactive to light. ENT: Pharynx normal. atraumatic Neck: Normal inspection. Neck supple. CVS: Normal heart rate and rhythm. Pulses normal. Respiratory: No respiratory distress. Breath sounds normal. Abdomen: Soft and nontender. Skin: Skin warm and dry. Normal skin color. Normal skin turgor. Extremities: No lower extremity edema. No calf ttp He denies pain to left hip Neuro: Oriented X 3. No motor deficit. No sensory deficit. Course Course Course Narrative: up and walking steady gait suspect fall due to ETOH Medications Administered Discontinued Medications Generic Name Dose Route Start Last Admin Trade Name Le PRN Reason Stop Dose Admin Lactated Ringer's 1,000 mls @ 999 mls/hr 11/22/23 22:30 11/23/23 01:15 Lr IV 11/22/23 23:30 999 mls/hr .Q1H1M TUCKER Administration Medical Decision Making Medical Decision Making [facility] Narrative: 73 yo male with PMH of chronic back pain, HLD, obesity, HTN, not on blood thinners states he did drink tonight and and now fell and had a hard time getting up - he denies any trauma or head strike. He is adamant to me he didn't hurt his left hip and I was able to move the leg. At this time I am going to order EKG, labs - he has no CP/SOB. Possible fall related to ETOH Differential Diagnosis Differential Diagnoses: The differential diagnosis associated with the presentation includes fall, ETOH use Admission/Observation Consideration of admission/observation: Escalation of care including admission/observation considered BMP improved clinically sober steady gait no issues ambulating can be DC Lab Data [facility] Lab Attestation statement: I reviewed the patient's lab results. 11/22/23 21:55 11/23/23 01:57 Labs: Lab Results 11/22/23 11/23/23 Range/Units 21:55 01:57 WBC 7.5 (4.8-10.8) X10*3/uL RBC 4.53 L (4.60-5.80) X10*6/uL Hgb 14.7 (14.0-18.0) g/dl Hct 41.0 L (42.0-52.0) % MCV 90.5 (80.0-98.0) fL MCH 32.5 (27.0-33.0) pg MCHC 35.9 (31.0-36.0) g/dl RDW 13.3 (11.0-16.0) % Plt Count 217 (160-400) X10*3/uL MPV 10.0 (9.4-12.4) fL Immature Gran % (Auto) 0.4 (0.0-0.4) % Neut % (Auto) 54.3 (45-73) % Lymph % (Auto) 33.0 (20-40) % [place] % (Auto) 10.3 (2-11) % Eos % (Auto) 1.2 (0-4) % Baso % (Auto) 0.8 (0-2) % Lymph # (Auto) 2.5 (1.2-4.9) X10*3/uL [place] # (Auto) 0.8 (0.1-1.2) X10*3/uL Eos # (Auto) 0.1 (0.0-0.4) X10*3/uL Baso # (Auto) 0.1 (0.0-0.2) X10*3/uL Abs Immat Gran (auto) 0.03 (0.00-0.03) X10*3/uL Absolute Neuts (auto) 4.1 (2.0-8.3) x10*3/uL Absolute Nucleated RBC 0.000 (0.0-0.012) X10*3/uL Nucleated RBC % (auto) 0.0 (0.0-0.2) /100WBC PT 11.2 (11.1-13.3) SEC INR 0.9 (0.9-1.1) Sodium 138 139 (135-145) mmol/L Potassium 4.1 3.9 (3.3-5.1) mmol/L Chloride 105 104 (96-108) mmol/L Carbon Dioxide 16 L 19 L (22-29) mmol/L Anion Gap 21 H 20 (12-20) BUN 28 H 27 H (9-16) mg/dL Creatinine 1.30 1.09 (0.5-1.4) mg/dL Estim Creat Clear Calc 77.1 91.9 Estimated GFR 54 > 60 Random Glucose 95 92 (60-115) mg/dL Calcium 9.4 D 9.0 (8.4-10.2) mg/dL Magnesium 2.1 (1.6-2.6) mg/dL Total Bilirubin 0.2 (0.0-1.0) mg/dL Direct Bilirubin < 0.2 (0.0-0.5) mg/dL AST 25 (5-37) U/L ALT 32 (0-40) U/L Alkaline Phosphatase 60 (39-117) U/L Total Protein 7.0 (6.5-8.0) g/dL Albumin 3.8 (3.5-5.0) g/dL Ethyl Alcohol 176 mg/dL Independent Interpretation I performed an independent interpretation of an: EKG Interpretation: Rate: 72 Rhythm: NSR [place]: normal Normal P waves. Normal TERESA. Normal QRS complex. ST T wave : normal no SOFIA qTC: 438 prior studies: no acute ischemia The study has been interpreted contemporaneously by me. . External Record Review External record reviewed: Office record Tests considered The following testing was considered but not selected: xray of left hip but patient states he has no concerns for injury or fracture Discharge Plan Discharge Clinical Impression: Acute dehydration Alcohol intoxication Qualifiers: Complication of substance-induced condition: with unspecified complication Q ualified Code(s): F10.929 - Alcohol use, unspecified with intoxication, unspecified Patient Disposition: Home, Self-Care Instructions: Dehydration (ED), Alcohol Intoxication (ED) Additional Instructions: stay hydrated your labs showed you were dehydrated we did improve them with fluids while in ED and rechecked. avoid alcohol you could have been seriously injured. return for confusion, worsening pain, vomiting, or any other concerns. Prescriptions: No Action doxycycline monohydrate 100 mg tablet 100 mg PO BID Qty: 20 0RF lisinopril 20 mg tablet 20 mg PO BID metoprolol tartrate 100 mg tablet 100 mg PO BID atorvastatin 20 mg tablet 20 mg PO DAILY prednisolone 5 mg tablet 5 mg PO DAILY meloxicam 15 mg tablet 15 mg PO DAILY morphine 10 mg capsule,extend.release pellets 10 mg PO Q12H 7 Days Qty: 21 0RF cholecalciferol (vitamin D3) 25 mcg (1,000 unit) capsule 25 mcg PO DAILY
--- NOTE | 2023-11-22 21:56 | MHC.EDTECH ---
Patient came in by ambulance,changed into hospital attire,placed on the assurance sourcing manager,vitals taken. EKG taken per order and signed by provider,labs obtained and sent to lab.Call ramos in reach
[2023-11-22 22:02] LABS: Basophils Absolute Auto 0.1 X10*3/uL (0.0-0.2); Basophils Percent Auto 0.8 % (0-2); Eosinophils Absolute Auto 0.1 X10*3/uL (0.0-0.4); Eosinophils Percent Auto 1.2 % (0-4); Hemoglobin 14.7 g/dl (14.0-18.0); Imm Gran Abs Auto 0.03 X10*3/uL (0.00-0.03); Imm Gran Pct Auto 0.4 % (0.0-0.4); Lymphocytes Absolute Auto 2.5 X10*3/uL (1.2-4.9); MANUAL DIFF FLAG NO; Mean Corpuscular HGB Conc 35.9 g/dl (31.0-36.0); Mean Corpuscular Hemoglobin 32.5 pg (27.0-33.0); Mean Corpuscular Volume 90.5 fL (80.0-98.0); Monocytes Absolute Auto 0.8 X10*3/uL (0.1-1.2); Monocytes Percent Auto 10.3 % (2-11); Neutrophils Absolute Auto 4.1 x10*3/uL (2.0-8.3); Neutrophils Percent Auto 54.3 % (45-73); Platelet Count 217 X10*3/uL (160-400); Red Blood Count 4.53 X10*6/uL (4.60-5.80); Red Cell Distribution Width 13.3 % (11.0-16.0); White Blood Count 7.5 X10*3/uL (4.8-10.8)
[2023-11-22 22:07] LABS: INTERNATIONAL NORM RATIO 0.9 (0.9-1.1); Prothrombin Time 11.2 SEC (11.1-13.3)
[2023-11-22 22:21] LABS: Alanine Aminotransferase 32 U/L (0-40); Albumin Level 3.8 g/dL (3.5-5.0); Alkaline Phosphatase 60 U/L (39-117); Anion Gap 21 (12-20); Aspartate Amino Transferase 25 U/L (5-37); Bilirubin Direct < 0.2 mg/dL (0.0-0.5); Bilirubin Total 0.2 mg/dL (0.0-1.0); Blood Urea Nitrogen 28 mg/dL (9-16); Calcium 9.4 mg/dL (8.4-10.2); Carbon Dioxide 16 mmol/L (22-29); Chloride 105 mmol/L (96-108); Creatinine Clr Calc Pharmacy 77.1; Estimated Glomerular Filt Rate 54; Ethanol 176 mg/dL; Glucose Random 95 mg/dL (60-115); Magnesium 2.1 mg/dL (1.6-2.6); Potassium 4.1 mmol/L (3.3-5.1); Sodium 138 mmol/L (135-145)
[2023-11-22 23:35] VITALS: BP 149/56; PULSE 75; RESP 18; TEMP 36.6; O2SAT 97
--- NOTE | 2023-11-22 23:39 | PC.NURSE ---
Took report from off-going RN. Pt is a 73 y/o male who presents via EMS earlier this evening after sustaining an unwitnessed fall at home. Pt denies hitting his head. LOC is unknown. Denies head, neck, or back pain. Denies headache, dizziness, or visual disturbance. CSM are intact. Pt is pleasant to talk to and is calm and cooperative. Speech is clear, thoughts are organized. Skin is W/P/D. No acute distress noted.
--- NOTE | 2023-11-22 23:40 | MHC.EDTECH ---
Hourly rounds and vitals completed,patient ambulated with this tech to bathroom with a steady gait, Call ramos in reach
--- NOTE | 2023-11-23 01:13 | PC.NURSE ---
20G IV access established in left AC. Line is patent, flushes well without pain and no signs of infiltration. LR administered per DEC.
[2023-11-23] MEDS: Lactated Ringers 1,000 ML 999 ML IV (01:15)
[2023-11-23 01:58] VITALS: BP 166/74; PULSE 71; RESP 18; TEMP 36.4; O2SAT 97
--- NOTE | 2023-11-23 02:01 | MHC.EDTECH ---
Hourly rounds and vitals completed,repeat labs obtained at this time and patient giving a can of tracy anastasiia. Call ramos in reach
[2023-11-23 02:19] LABS: Anion Gap 20 (12-20); Blood Urea Nitrogen 27 mg/dL (9-16); Carbon Dioxide 19 mmol/L (22-29); Chloride 104 mmol/L (96-108); Creatinine Clr Calc Pharmacy 91.9; Estimated Glomerular Filt Rate > 60; Glucose Random 92 mg/dL (60-115); Potassium 3.9 mmol/L (3.3-5.1); Sodium 139 mmol/L (135-145)
== END 2023-11-23 03:06 | disposition home or self-care (01) ==
PROVIDERS: Emergency Provider Emergency Medicine; PCP Internal Medicine Medical Oncology
DX: E86.0 Dehydration (principal); F10.929 Alcohol use, unspecified with intoxication, unspecified; Y90.8 Blood alcohol level of 240 mg/100 ml or more; R94.31 Abnormal electrocardiogram [ECG] [EKG]; Z79.899 Other long term (current) drug therapy
CPT/HCPCS: 36415; 80048; 80076; 80307; 83735; 85025; 85610; 93005; 96360; 99284; J7120

== ENCOUNTER → 2023-11-22 21:38 | Outpatient (BNV) | payer BC, SELFPAY | PROVIDERS: Emergency Provider Emergency Medicine; PCP Internal Medicine Medical Oncology; Visit Provider Internal Medicine | DX: R94.31 Abnormal electrocardiogram [ECG] [EKG] (principal) | CPT/HCPCS: 93010 ==

== ENCOUNTER → 2024-11-29 15:52 | Outpatient (BNV) | payer BC, SELFPAY | PROVIDERS: PCP Internal Medicine Medical Oncology; Visit Provider Radiology Diagnostic Radiology | DX: R29.5 Transient paralysis (principal) | CPT/HCPCS: 70551 ==

== ENCOUNTER → 2025-05-01 12:33 | Outpatient (REF) | payer MEDICARE, SELFPAY ==
--- OUTSIDE RECORDS SUMMARY | 2025-03-22 06:56 | XMS_ITS ---
Author Organization Curtis English III, MD Address [address] [place] [address] [place] [address] Care Team Providers Care Body Press Operator Name Role Phone Curtis English Primary Care Provider REASON FOR VISIT ? why pt is on Lisinopril and Valsartan Social History Sex Assigned At : Social History Observation Description Sex Assigned At Male Encounters Encounter Location Date Provider Diagnosis Curtis English III, MD [address] [place] [address] [place] [address] 03/22/2025 Curtis English Plan Of Treatment Next Appt Details Provider Name:Curtis English, 05/16/2025 10:15:00 AM, [address] [place] [address] [place], [address], Provider Name:Curtis English, 06/23/2025 11:00:00 AM, [address] [place] [address] [place], [address], Progress Notes * ANH AKHTARDOB: [birth year] (74 yo M)Acc No.[id number]:03/22/2025 Patient: ANH HARRIS :1950 A ge:74 Y S ex:Male Address:[facility] [place], [address] * true * Date: Generated for Printi ng/Faxing/eTransmitting on: 0 05/01/2025 01:28 PM EDT
--- OUTSIDE RECORDS SUMMARY | 2025-05-01 13:28 | XMS_ITS | Encounter Summary ---
Author Organization [facility] Address [address] [place] [id number] Care Team Providers Care Powertrain Control Systems Engineer Name Role Phone Curtis English MD Primary Care Provider [phone] Chepe Daigle MD Unavailable [phone] Encounter Details Date Type Department Care Team (Late st Contact Info) Description 07/02/2023 Scanned Document Orthopedic [address] [phone] Chepe Daigle MD [address] [facility] [address] [place] [id number] Social History Tobacco Use Types Packs/Day Years Used Date Smoking Tobacco: Never Smokeless Tobacco: Never Alcohol Use Standard Drinks/Week Comments No 0 (1 standard drink = 0.6 oz pur e alcohol) Sex and Gender Information Value Date Recorded Sex Assigned at Male 07/02/2023 10:23 AM EDT Legal Sex Male 11:34 AM EDT Gender Identity Male 07/02/2023 10:23 AM EDT Sexual Orientation Heterosexual (straight) 07/13 7:35 AM EDT documented as of this encounter Plan of Treatment Upcoming Encounters Date Type Department Care Team (Late st Contact Info) Description 06/13/2025 11:15 AM EDT Office Visit Orthopedic [address] [place] [id number] Chepe Daigle MD [address] [facility] [address] [place], [place] [address] documented as of this encounter Visit Diagnoses Not on filedocumented in this encounter Care Teams Powertrain Control Systems Engineer Relationship Specialty Start Date End Date Curtis English MD [address] [address] PCP - General 07/02/23 Chepe Daigle MD [address] [place] [phone] Physician Surgery, Orthopedic 07/07/23 documented as of this encounter
--- OUTSIDE RECORDS SUMMARY | 2025-05-01 13:29 | XMS_ITS ---
Author Name [facility] Organization Unknown Results Test Name/Text Value Interpretation Date Range Source PSA SerPl DL=0.01 ng/mL-mCnc 0.08 ng/mL Normal 04/05/2025 [facility] PSA SerPl DL=0.01 ng/mL-mCnc 0.06 ng/mL Normal 10/18/2024 [facility] History of Medication Use Medication Directions Dispensed Refills Start Date End Date Stat methocarbamol (ROBAXIN) 750 MG tablet Take 1 tablet (750 mg total) by mouth 4 (four) times a day as needed for muscle spasms. 07/14/2023 08/14/2023 active apixaban (ELIQUIS) 2.5 MG tablet Take 1 tablet (2.5 mg total) by mouth every 12 (twelve) hours around the clock. 07/14/2023 08/12/2023 active oxybutynin (DITROPAN-XL) 10 MG 24 hr tablet TAKE 1 TABLET BY MOUTH EVERY DAY 09/18/2021 03/26/2023 active HYDROmorphone (DILAUDID) 2 MG tablet 4 mg 4 times daily (every 6 hours) as needed. 08/05/2021 active predniSONE (DELTASONE) 5 MG tablet Take 1 tablet (5 mg total) by mouth every other day. 07/02/2020 active Testosterone (AXIRON) 30 MG/ACT solution Apply 30 mg topically every morning. Apply to the axilla at the same time each morning. Max Daily Amount: 30 mg 10/06/2018 03/26/2023 active sodium chloride 0.9 % nebulizer solution USE 3 TO 4 VIALS DAILY IN OPTHALMIC PROSTHETIC DEVICE 07/09/2016 03/26/2023 active escitalopram (LEXAPRO) 10 MG tablet Take 10 mg by mouth daily. 07/08/2016 03/26/2023 active pilocarpine (PILOCAR) 1 % ophthalmic solution Administer 1 drop to both eyes 2 (two) times a day. 05/30/2016 active acetaminophen (TYLENOL) 500 MG tablet 1 tablet as needed active cholecalciferol (CHOLECALCIFEROL) 25 MCG (1000 UT) tablet Take 1,000 Units by mouth daily. active furosemide (LASIX) 40 MG tablet Take 2 tablets (80 mg total) by mouth every morning. active potassium chloride (K-TAB) 20 MEQ CR tablet Take 1 tablet (20 mEq total) by mouth every morning. active potassium chloride (K-TAB) 20 MEQ CR tablet TAKE 1 TABLET BY MOUTH EVERY DAY WITH FOOD FOR 30 DAYS active Allergies Allergen Reaction Severity Comment Documented Date Source Statu s OXYCODONE ITCHING 08/11/2016 [facility] active CEPHALEXIN [facility] ERYTHROMYCIN [facility]CHING [facility] Problems Problem Status Onset Date Problem Type Date of Resoluti on Source Hypertension active 2023-07-07 ProblemAct [facility] Glaucoma active 2023-07-07 ProblemAct [facility] Suspected sleep apnea active 2023-07-08 ProblemAct [facility] Spinal stenosis active 2023-07-07 [facility]Act [facility] COPD (chronic obstructive pulmonary disease) active 2023-07-10 ProblemAct [facility] HLD (hyperlipidemia) active 2023-07-07 ProblemAct [facility] Bilateral lower extremity edema active 2023-07-08 ProblemAct [facility] Morbid obesity active 2023-07-[address] [facility] Prostate cancer active 2023-07-07 ProblemAct [facility] CHF (congestive heart failure) active 2023-07-08 ProblemAct [facility] Arthritis of left hip active 2023-07-14 ProblemAct [facility] Muscle weakness active 2023-07-08 ProblemAct [facility] Encounters Encounter Type Encounter Reason Primary Diagnosis Location Date Ambulatory Follow-up Follow-up [facility] 06/14/2024 Ambulatory Personal history of malignant neoplasm of prostate Personal history of malignant neoplasm of prostate [facility] 04/07/2024 Ambulatory Presence of left artificial hip joint Presence of left artificial hip joint [facility] 12/08/2023 Ambulatory Presence of left artificial hip joint Presence of left artificial hip joint [facility] 12/08/2023 Ambulatory Presence of left artificial hip joint Presence of left artificial hip joint [facility] 10/13/2023 Ambulatory Presence of left artificial hip joint Presence of left artificial hip joint [facility] 10/13/2023 Ambulatory Presence of left artificial hip joint Presence of left artificial hip joint [facility] 09/22/2023 Ambulatory Unilateral primary osteoarthritis, left hip Unilateral primary osteoarthritis, left hip [facility] 08/04/2023 Ambulatory Presence of left artificial hip joint Presence of left artificial hip joint [facility] 08/04/2023 Ambulatory Unilateral primary osteoarthritis, left hip Unilateral primary osteoarthritis, left hip [facility] 07/13/2023 Ambulatory Encounter for other preprocedural examination Encounter for other preprocedural examination [facility] 07/08/2023 Ambulatory Unilateral primary osteoarthritis, left hip Unilateral primary osteoarthritis, left hip [facility] 07/07/2023 Ambulatory Unilateral primary osteoarthritis, left hip Unilateral primary osteoarthritis, left hip [facility] [facility] [employer] 07/07/2023 Ambulatory Pain Pain [facility] [employer] 06/30/2023 Ambulatory Pain in left hip Pain in left hip [facility] [employer] 06/17/2023 Ambulatory Other intervertebral disc displacement, thoracic region Other intervertebral disc displacement, thoracic region [facility] 06/17/2023 Ambulatory Personal history of malignant neoplasm of prostate [facility] 03/25/2023 Ambulatory Personal history of malignant neoplasm of prostate [facility] 08/07/2021 Care Team Organization Name Specialty Phone Email Start Date End Da te [facility] 11/08/2023 [facility] JASON ZIMMERMAN Primary Care 08/08/2021 [facility] Jason Zimmerman Primary Care 08/07/2021
--- OUTSIDE RECORDS SUMMARY | 2025-05-01 13:29 | XMS_ITS | Clinical Summary ---
Author Organization [facility] Address [address] [place] [address] Care Team Providers Care Assistant Women'S Rowing Coach Name Role Phone Curtis English MD Primary Care Provider [phone] Immunizations Name Administration Dates Next Due Moderna SARS-CoV-2 COVID-19, mRNA, LNP-S, preservative free 11/28/2020,10/31/2020 Social History Tobacco Use Types Packs/Day Years Used Date Smoking Tobacco: Never Smokeless Tobacco: Never Alcohol Use Standard Drinks/Week Comments Yes 0 (1 standard drink = 0.6 oz pur e alcohol) Sex and Gender Information Value Date Recorded Sex Assigned at Not on file Legal Sex Male 7:02 PM EST Gender Identity Not on file Sexual Orientation Not on file Obstetrics History Last Filed Vital Signs Vital Sign Reading Time Taken Comments Blood Pressure 140/98 07/09/2023 1:06 PM EDT Pulse 71 07/09/2023 1:06 PM EDT Temperature - - Respiratory Rate - - Oxygen Saturation - - Inhaled Oxygen Concentration - - Weight 98.4 kg (217 lb) 07/09/2023 1:06 PM EDT Height 182.9 cm (6') 07/09/2023 1:06 PM EDT Body Mass Index 29.43 07/09/2023 1:06 PM EDT Plan of Treatment Health Maintenance Due Date Last Done Comments DTaP,Tdap,and Td Vaccines (1 - Tdap) 1971 Pneumococcal Vaccine: 50+ Years (1 of 1 - PCV) 2002 Zoster Vaccines (1 of 2) 2002 Abdominal Aortic Aneurysm (AAA) Screen 09/20/2022 Cholesterol Screening (Lipid Panel) 09/20/2022 Colorectal Cancer Screening: Colonoscopy 09/20/2022 Depression Screening 09/20/2022 Falls Risk Assessment 09/20/2022 Hepatitis C Screening 09/20/2022 Social Influencers of Health Screening 09/20/2022 COVID-19 Vaccine (3 - 2023-2 5 season) 2024 11/28/2020, 10/31/2020 Influenza Vaccine (#1) 2025 RSV Immunization Adult Patients (1 - 1-dose 75+ series) 2027 HIB Vaccines Aged Out No longer eligi ble based on patient's age to complete this topic HPV Vaccines Aged Out No longer eligi ble based on patient's age to complete this topic Hepatitis A Vaccines Aged Out No long er eligible based on patient's age to complete this topic Hepatitis B Vaccines Aged Out No long er eligible based on patient's age to complete this topic IPV Vaccines Aged Out No longer eligi ble based on patient's age to complete this topic MMR Vaccines Aged Out No longer eligi ble based on patient's age to complete this topic Meningococcal ACWY Vaccine Aged Out N o longer eligible based on patient's age to complete this topic Meningococcal B Vaccine Aged Out No l onger eligible based on patient's age to complete this topic RSV Immunization Patients Under 20 months Aged Out No longer eligible b ased on patient's age to complete this topic Varicella Vaccines Aged Out No longer eligible based on patient's age to complete this topic Advance Directives Documents on File Type Date Recorded Patient Per Diem Rn Expl anation Health Care Decision (hx) 10/03/2010 AD ROSAS DIRECTIVE Health Care Decision (hx) 10/03/2010 AD ROSAS DIRECTIVE Health Care Decision (hx) 10/03/2010 AD ROSSA DIRECTIVE Health Care Decision (hx) 10/03/2010 AD ROSAS DIRECTIVE Care Teams Assistant Women'S Rowing Coach Relationship Specialty Start Date End Date Curtis English MD PCP - General Oncology 06/17/21
--- OUTSIDE RECORDS SUMMARY | 2025-05-01 13:29 | XMS_ITS | Patient Health Record ---
Author Organization [facility] [place] Address [address] [facility] [place] [address] Care Team Providers Care Merit System Director Name Role Phone Wilmer Vasquez MD Primary Care Provider Silvio Hill Unavailable [phone] Reason For Referral No Information Medications Medication SIG (Take, Route, Fr equency, Duration) Notes Start Date End Date Status Vitamin D Active Colcrys 0.6 MG 1 tablet Orally Once a day; Duration: 10 days 08/29/2019 Active hydroCHLOROthiazide Active Lisinopril Active Cymbalta Active Nucynta Active Social History Tobacco Use: Social History Observation Description Date Details (start date - stop date) Never Smoker NA - NA Tobacco Use/Smoking Question Answer Notes Are you a: nonsmoker Alcohol Screen Question Answer Notes Did you have a drink containing alcohol in the p ast year? 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) Active confirmed Plan Of Treatment Pending Test Test Name Order Date *Uric Acid, Serum 08/29/2019 *Sedimentation Rate-Westergren 9 [id number] OF HEMATOMA/FLUID 019 Insurance Providers Payer Name Payer Address Payer Phone Subscriber Number Group Number Insured Name Patient Relationship to Insured Coverage Start Date Coverage End Date [employer] [address] [place] [address] [phone] [id number] Keagan Murray Self - patient is the insured Medical (General) History Medical History History ICD Code Back,Hip,and Knee pain Broken bones Cataracts Gall bladder problems Glaucoma Gout High blood pressure Numbness Measles Chicken pox Joint implants/screws Transfusions Surgical History Surgery Date(Month/Year) back surgery appendectomy gall bladder Hernia Repair prostate Hand Surgery femur
--- OUTSIDE RECORDS SUMMARY | 2025-05-01 13:29 | XMS_ITS | Clinical Summary ---
Author Organization [facility] Address [address] [place] [address] Care Team Providers Care Ticket Printer And Tagger Name Role Phone Curtis English MD Primary Care Provider [phone] Allergies Active Allergy Reactions Criticality Noted Date Comments Cephalexin 07/09/2023 Medications Medication Sig Dispensed Refills Start Date End Date Status atorvastatin (LIPITOR) tablet 20 mg Take 1 tablet (20 mg total) by mouth daily. 0 06/03/2023 Active furosemide (LASIX) 40 MG tablet Take 1 tablet (40 mg total) by mouth 2 (two) times a day. for 30 days 0 04/22/2023 Active lisinopril (PRINIVIL,ZESTRIL) tablet 40 mg Take 1 tablet (40 mg total) by mouth daily. 0 06/17/2023 Active predniSONE (DELTASONE) 5 mg tablet 0 06/17/2023 Active metoprolol succinate (TOPROL-XL) 24 hr tablet 100 mg Take 1 tablet (100 mg total) by mouth daily. 0 Active Potassium Chloride ER 20 MEQ TBCR Take 20 mEq by mouth. 0 Active dorzolamide-timolol (COSOPT) 22.3-6.8 MG/ML ophthalmic solution Place 1 drop into both eyes 2 (two) times a day. 0 07/21/2016 Active HYDROmorphone (DILAUDID) 2 MG tablet Take 2 tablets (4 mg total) by mouth every 6 (six) hours as needed. 0 Active meloxicam (MOBIC) 15 MG tablet TAKE 1 TABLET BY MOUTH EVERY DAY FOR 90 DAYS 0 06/17/2023 Active Semaglutide,0.25 or 0.5MG/DOS, 2 MG/3ML SOPN Inject 0.5 mg under the skin every 7 days. 0 Active vitamin D3 (cholecalciferol) 25 MCG (1000 UT) tablet Take 1 tablet (1,000 Units total) by mouth. 0 Active Docusate Sodium (DSS) 100 MG CAPS Take 100 mg by mouth. 0 Active senna (SENOKOT) 8.6 MG tablet Take 2 tablets by mouth. 0 Active polyethylene glycol (MIRALAX) 17 g packet Take 17 g by mouth daily. 0 Active acetaminophen (TYLENOL EXTRA STRENGTH) 500 MG tablet 650 mg every 6 (six) hours as needed. 0 Active Active Problems No known active problems Social History Tobacco Use Types Packs/Day Years Used Date Smoking Tobacco: Never Smokeless Tobacco: Never Alcohol Use Standard Drinks/Week Comments Yes 0 (1 standard drink = 0.6 oz pur e alcohol) soc Sex and Gender Information Value Date Recorded Sex Assigned at Male 07/09/2023 8:41 AM EDT Gender Identity Not on file Sexual Orientation Not on file Job Start Date Occupation Industry Not on file Not on file Not on file Last Filed Vital Signs Vital Sign Reading Time Taken Comments Blood Pressure 140/98 07/09/2023 1:06 PM EDT Pulse 71 07/09/2023 1:06 PM EDT Temperature - - Respiratory Rate - - Oxygen Saturation 96% 07/09/2023 1:06 PM EDT Inhaled Oxygen Concentration - - Weight 98.4 kg (217 lb) 07/09/2023 1:06 PM EDT Height 182.9 cm (6') 07/09/2023 1:06 PM EDT Body Mass Index 29.43 07/09/2023 1:06 PM EDT Plan of Treatment Health Maintenance Due Date Last Done Comments Hepatitis C Screening 1952 Depression Screening 1964 Preventative Health Evaluation 1970 DTap / Tdap / Td (1 - Tdap) 1971 Colon Cancer Screening (Colonoscopy) 1997 Shingrix-Zoster Vaccine (1 of 2) 2002 Fall Risk Assessment 2017 Pneumococcal Vaccine (1 of 1 - PCV) 2017 COVID-19 Vaccine ( season) 2024 09/29/2022, 09/09/2021, 11/28/2020, Additional history exists Influenza Vaccine (#1) 2025 RSV Adult > 60+ Yrs or (1 - 1-dose 75+ series) 2027 Hepatitis B Vaccines Aged Out No long er eligible based on patient's age to complete this topic RSV Ped < 20 months Aged Out No longe r eligible based on patient's age to complete this topic Care Teams Ticket Printer And Tagger Relationship Specialty Start Date End Date Curtis English MD [address] [place] [phone] PCP - General Oncology 06/17/21
== END ==
LOC: HO.SL 12:33
PROVIDERS: PCP Internal Medicine Medical Oncology; Visit Provider Internal Medicine Medical Oncology
DX: G47.33 Obstructive sleep apnea (adult) (pediatric) (principal); R40.0 Somnolence; R53.83 Other fatigue
CPT/HCPCS: 95806

== ENCOUNTER → 2025-05-01 21:00 | Outpatient (BNV) | payer MEDICARE, SELFPAY | PROVIDERS: PCP Internal Medicine Medical Oncology; Visit Provider Internal Medicine | DX: G47.33 Obstructive sleep apnea (adult) (pediatric) (principal) | CPT/HCPCS: 95806 ==

== ENCOUNTER 2025-07-03 09:52 | Outpatient (REF) | payer MEDICARE, SELFPAY ==
--- OUTSIDE RECORDS SUMMARY | 2025-06-23 05:30 | XMS_ITS ---
Author Organization Curtis English III, MD Address [address] [facility] [place] [address] Care Team Providers Care Manager Distribution Name Role Phone Curtis English Primary Care Provider [phone] Allergies Allergen (clinical drug ingredient) Drug/Non Drug Allergy documented on EMR Reaction Allergy Type Onset Date Status No Known Drug Allergy Unknown Drug Allergy Active No Known Food Allergy Unknown Drug Allergy Active REASON FOR VISIT annual exam Medications Medication SIG (Take, Route, Frequency, Duration) Notes Start Date End Date Status hydrALAZINE HCl 100 MG 1 tablet with joe d Orally Twice a day 02/26/2024 Active Valsartan 160 MG 1 tablet Orally Twic e a day 04/27/2024 Active Furosemide 20 MG 1 tablet Orally Once a day 11/16/2024 Active Metoprolol Tartrate 100 MG 100 mg Orally Twice a day 12/30/2024 Active Topiramate ER 50 MG 1 capsule Orally Onc e a day 04/18/2025 Active HYDROmorphone HCl 2 MG 1 tablet as neede d Orally every 6 hrs 11/17/2023 Active Omeprazole 20 MG 1 capsule 30 minutes before morning meal Orally Once a day Active Sennosides 8.6 MG 2 tablets at bedtime as needed Orally Once a day Active Vitamin D3 125 MCG (5000 UT) 1 capsule Orally Once a day Active Docusate Sodium 100 MG 1 capsule as need ed Orally Once a day Active Meloxicam 15 MG TAKE 1 TABLET BY ETHAN TH DAILY Active predniSONE 5 MG TAKE 2 TABLETS BY MO UTH DAILY Active Potassium Chloride ER 20 MEQ 1 tablet with food Orally Once a day Active Lisinopril 40 MG TAKE 1 TABLET BY ETHAN TH TWICE DAILY Active Methocarbamol 750 MG 1 tablet Orally chidi ry 8 hrs 07/12/2024 Active Zepbound 15 MG/0.5ML 0.5 mL Subcutaneous once a week 05/31/2025 Active Social History Tobacco Use: Social History Observation Description Date Details (start date - stop date) Never Smoker NA - NA Sex Assigned At : Social History Observation Description Sex Assigned At Male Tobacco Control (Standard) Question Answer Notes Tobacco use: Nonsmoker Additional Findings: Tobacco non-user Aggressive nonsmoker AUDIT-C (Standard) Question Answer Notes Did you have a drink containing alcohol in the p ast year? No Points 0 Interpretation Negative Vital Signs Temperature 96.8 degrees Fahrenheit 06/23/20 25 Blood pressure systolic 150 mm Hg 06/23/20 25 Blood pressure diastolic 84 mm Hg 025 Heart Rate 64 /min 06/23/2025 Height 69 in 06/23/2025 Weight 273 lbs 06/23/2025 BMI 40.31 kg/m2 06/23/2025 Encounters Encounter Location Date Provider Diagnosis Curtis English III, MD [address] [place] [address] [place] [address] 06/23/2025 Curtis English Morbid obesity E66.0 1 ; Spinal stenosis of lumbar region with neurogenic claudication M48.062 ; History of depression Z86.59 ; Mixed hyperlipidemia E78.2 ; Peripheral edema R60.9 ; S/P total left hip arthroplasty Z96.642 ; Acute congestive heart failure, unspecified heart failure type I50.9 and Obstructive sleep apnea syndrome G47.33 Assessments Encounter Date Diagnosis (ICD Code) Assessment Notes Treat ment Notes Treatment Clinical Notes 06/23/2025 Morbid obesity (ICD-10 - E66.01) He now has the Zepbound. He has lost 7 pounds. He was continued on unchanged dose. 06/23/2025 Spinal stenosis of lumbar region with neurogenic claudication (ICD-10 - M48.062) If it occurs again may be necessary to image the spinal cord in the cervical area. 06/23/2025 History of depressio n (ICD-10 - Z86.59) His mood is depressed as he is coping with multiple illnesses and weakness. He has not worked in a prolonged period of time.He has gained weight recently. Despite his efforts at weight loss. 06/23/2025 Mixed hyperlipidemia (ICD-10 - E78.2) Comprehensive blood work with a fasting lipid profile is being done regularly. Substantial amounts of weight. 06/23/2025 Peripheral edema (ICD-10 - R60.9) His edema has resolved. Furosemide was continued. 06/23/2025 S/P total left hip arthroplasty (ICD-10 - Z96.642) He has recovered from surgery and has only occasional pain at the incision. 06/23/2025 Acute congestive heart failure, unspecified heart failure type (ICD-10 - I50.9) He seems quite stable today and is free of tachypnea. His pulmonary examination was unremarkable and his neck veins are flat. 06/23/2025 Obstructive sleep apnea syndrome (ICD-10 - G47.33) Plan Of Treatment Medication Medication Name Sig Start Date Stop Date Notes hydrALAZINE HCl 100 MG 1 tablet with joe d Orally Twice a day 02/26/2024 Valsartan 160 MG 1 tablet Orally Twice a day 04/27/2024 Furosemide 20 MG 1 tablet Orally Once a day 11/16/2024 Metoprolol Tartrate 100 MG 100 mg Orally Twice a day 12/30 Topiramate ER 50 MG 1 capsule Orally Once a day 04/18/2025 HYDROmorphone HCl 2 MG 1 tablet as neede d Orally every 6 hrs 11/17/2023 Omeprazole 20 MG 1 capsule 30 minutes before morning meal Orally Once a day Sennosides 8.6 MG 2 tablets at bedtime as needed Orally Once a day Vitamin D3 125 MCG (5000 UT) 1 capsule Orally Once a day Docusate Sodium 100 MG 1 capsule as need ed Orally Once a day Meloxicam 15 MG TAKE 1 TABLET BY MOUTH DAILY predniSONE 5 MG TAKE 2 TABLETS BY MOUTH DAILY Potassium Chloride ER 20 MEQ 1 tablet wi th food Orally Once a day Lisinopril 40 MG TAKE 1 TABLET BY ETHAN TH TWICE DAILY Methocarbamol 750 MG 1 tablet Orally every 8 hrs Zepbound 15 MG/0.5ML 0.5 mL Subcutaneous once a week 05/31/2025 Next Appt Details Follow Up: 2 - 3 Days, Reaso n: OV Provider Name:Curtis English, 07/06/2025 10:30:00 AM, [address] [place] [address] [address], [address], [place], [address], Provider Name:Curtis English, 07/12/2025 09:00:00 AM, [address] [facility] [address], [place], [address], Provider Name:Curtis English, 06/27/2026 11:00:00 AM, [address] [facility] [address], [place], [address], Progress Notes * ANH AKHTARDOB: [birth year] (74 yo M)Acc No.[id number]:06/23/2025 Progress Notes Patient: ANH HARRIS Provider: Oren English MD :1950 A ge:74 Y S ex:Male Date:06/23/2025 Address:[address] [place] [id number] Subjective: * Chief Complaints: * A nnual exam * HPI: D epression Screening: He returns to the office at the age of 74 for his annual visit. His chronic thoracolumbar back pain continues but has improved over the last year. He takes an occasional hydromorphone but much less than in the past. His blood pressure has recently been elevated and was rechecked today. He has lost weight. He denies any chest pain shortness of breath or peripheral edema. He is consuming a healthy Mediterranean diet. PHQ-9 L ittle interest or pleasure in doing things?Not at all F eeling down, depressed, or hopeless N ot at all T rouble falling or staying asleep, or sleeping too much S everal days F eeling tired or having little energy N ot at all P oor appetite or overeating N ot at all F eeling bad about yourself or that you are a failure, or have let yourself or your family down N ot at all T rouble concentrating on things, such as reading the newspaper or watching television N ot at all M oving or speaking so slowly that other people could have noticed; or the opposite, being so fidgety or restless that you have been moving around a lot more than usual N ot at all T houghts that you would be better off or of hurting yourself in some way N ot at all T otal Score 1 I nterpretation M inimal Depression C OVID-19 Screenin mg pred qod, wt down 7 on zep, bp is 163/84 declines cpap pos sleep study. Questions H ave you had any new onset fever, chills, cough, congestion, sore throat, shortness of breath, muscle aches? N o F all Risk Screening: Fall History H ave you had any falls with injury in the past year? N o H ave you had two or more falls in the past year? N o F all Risk Assessment: N o falls in the past year S ÁNGEL Questions: SDOH Questions I n the past year have you been worried about losing your housing? N o I n the past year have you or any family members you live with been unable to get any of the following when it was really needed? Check all that apply: D ecline to answer * ROS: G eneral/Constitutional: pain T horacolumbar spine hips and knees. C hills d enies. F atigue a dmits. F ever d enies. E NT: Decreased hearing d enies. R espiratory: Cough d enies. C ardiovascular: Chest pain with exertion d enies. D yspnea on exertion?with prolonged activity. S hortness of breath t hat is moderate. G astrointestinal: Constipation o ccasional. D ecreased appetite d enies. D iarrhea d enies. H eartburn d enies. N ausea d enies. R ectal bleeding d enies. V omiting d enies. H ematology: bruising d enies. p etechiae d enies. S wollen glands n one have been noted. G enitourinary: Frequent urination o nce a night. M usculoskeletal: Muscle aches d enies. P ainful joints A bsent knees and spine. S ciatica a ffecting both lower sides of the body. W eakness d enies.? S kin: Itching d enies. R viri d enies. S kin lesion(s)?denies. N eurologic: Difficulty speaking d enies. D izziness d enies.?Headache d enies. L ow back pain d enies. P sychiatric: Depressed mood w hich is mild. * Medical History: * Surgical History: S chucho Fusion Dr. Vikram Frausto 11/2019left eye cataract 04/23/21Left hip arthroplasty 06/2023 * Hospitalization/Major Diagno stic Procedure: S chucho fusion 11/2019prostatectomy for prostate cancer 2015lumbar decompression [facility] Dr. Meraz 2012extension of spinal fusion to L2 2017appendectomy cholecystectomy umbilical herniorrhaphy bilateral total knee replacements cataract surgeries wide resection right ulnar nerve schwannoma 2008No history * Family History: F ather: , Cerebrovascular infarction. M other: , Dementia. There is no family history of breast cancer ovarian cancer prostate cancer pancreatic cancer or colon cancer. He has a personal history of prostate cancer. He has no children. He is not aware of any family history of mental illness or substance use disorder or addiction. * Social History: T obacco Use: T obacco Control (Standard) T obacco use: N onsmoker A dditional Findings: Tobacco non-user A ggressive nonsmoker D rugs/Alcohol: D rugs H ave you used drugs other than those for medical reasons in the past 12 months? N o D rug/Alcohol: A SHAGUFTA-C (Standard) D id you have a drink containing alcohol in the past year? 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 He has never been and has no children. He was born and raised in [place]. * Medications: T akingZepbound 15 MG/0.5ML Solution Auto-injector 0.5 mL Subcutaneous once a week Meloxicam 15 MG Tablet TAKE 1 TABLET BY MOUTH DAILY predniSONE 5 MG Tablet TAKE 2 TABLETS BY MOUTH DAILY Potassium Chloride ER 20 MEQ Tablet Extended Release 1 tablet with food Orally Once a day Lisinopril 40 MG Tablet TAKE 1 TABLET BY MOUTH TWICE DAILY Methocarbamol 750 MG Tablet 1 tablet Orally every 8 hrs Sennosides 8.6 MG Tablet 2 tablets at bedtime as needed Orally Once a day Vitamin D3 125 MCG (5000 UT) Capsule 1 capsule Orally Once a day Docusate Sodium 100 MG Capsule 1 capsule as needed Orally Once a day HYDROmorphone HCl 2 MG Tablet 1 tablet as needed Orally every 6 hrs Omeprazole 20 MG Capsule Delayed Release 1 capsule 30 minutes before morning meal Orally Once a day Valsartan 160 MG Tablet 1 tablet Orally Twice a day Furosemide 20 MG Tablet 1 tablet Orally Once a day Metoprolol Tartrate 100 MG Tablet 100 mg Orally Twice a day Topiramate ER 50 MG Capsule Extended Release 24 Hour 1 capsule Orally Once a day Taking Zepbound 15 MG/0.5ML Solution Auto-injector 0.5 mL Subcutaneous once a week Taking Meloxicam 15 MG Tablet TAKE 1 TABLET BY MOUTH DAILY Taking predniSONE 5 MG Tablet TAKE 2 TABLETS BY MOUTH DAILY Taking Potassium Chloride ER 20 MEQ Tablet Extended Release 1 tablet with food Orally Once a day Taking Lisinopril 40 MG Tablet TAKE 1 TABLET BY MOUTH TWICE DAILY Taking Methocarbamol 750 MG Tablet 1 tablet Orally every 8 hrs Taking Sennosides 8.6 MG Tablet 2 tablets at bedtime as needed Orally Once a day Taking Vitamin D3 125 MCG (5000 UT) Capsule 1 capsule Orally Once a day Taking Docusate Sodium 100 MG Capsule 1 capsule as needed Orally Once a day Taking HYDROmorphone HCl 2 MG Tablet 1 tablet as needed Orally every 6 hrs Taking Omeprazole 20 MG Capsule Delayed Release 1 capsule 30 minutes before morning meal Orally Once a day Taking Valsartan 160 MG Tablet 1 tablet Orally Twice a day Taking Furosemide 20 MG Tablet 1 tablet Orally Once a day Taking Metoprolol Tartrate 100 MG Tablet 100 mg Orally Twice a day Taking Topiramate ER 50 MG Capsule Extended Release 24 Hour 1 capsule Orally Once a day DiscontinuedhydrALAZINE HCl 100 MG Tablet 1 tablet with food Orally Twice a day Medication List reviewed and reconciled with the patientDiscontinued hydrALAZINE HCl 100 MG Tablet 1 tablet with food Orally Twice a day Medication List reviewed and reconciled with the patient * Allergies: N o Known Drug AllergyNo Known Food Allergyno[Allergies Verified] Objective: * Vitals: H t: 69, Wt:273, BMI:40.31, BP:150/84, HR:64, Temp:96.8, Ht-cm: 175.26, Wt-k.83. * Examination: G eneral Examination: GENERAL APPEARANCE: p leasant, well nourished, well developed, in no acute distress, calm and relaxed: morbidly obese: man. HEAD: a traumatic, normocephalic. EYES: e marc, perrla, anicteric, conjugate. EARS: n ormal. NOSE: s eptum intact. ORAL CAVITY: n ormal, unremarkable. NECK/THYROID: n o jugular venous distention, no carotid bruit, thyroid normal. LYMPH NODES: n o enlarged lymph nodes,spleen normal. SKIN: n o suspicious lesions, anicteric. HEART: n o clicks, gallops, murmurs, or rubs, regular rhythm, S1, S2 normal, no s3, or vascular bruits. LUNGS: c lear to auscultation . BREASTS: no masses palpable bilaterally. ABDOMEN: b owel sounds normal, no ascites, no organomegaly, no mass: : morbid obesity. RECTAL EXAM: n ot examined. MUSCULOSKELETAL: S urgical scar on hip, no peripheral edema. PERIPHERAL PULSES: n ormal. NEUROLOGIC: a lert and oriented, cranial nerves 2-12 grossly intact, deep tendon reflexes 2+ symmetrical, motor strength normal upper and lower extremities, sensory exam intact. PSYCH: a lert, oriented: thought process logical, goal directed: speech clear: cognitive function intact. Assessment: * Assessment: 1. M orbid obesity - E66.01 (Primary) N otes :He now has the Zepbound. He has lost 7 pounds. He was continued on unchanged dose. 2 . S chucho stenosis of lumbar region with neurogenic claudication - M48.062? Notes :If it occurs again may be necessary to image the spinal cord in the cervical area. 3 . H istory of depression - Z86.59 N otes :His mood is depressed as he is coping with multiple illnesses and weakness. He has not worked in a prolonged period of time.He has gained weight recently. Despite his efforts at weight loss. 4 . M ixed hyperlipidemia - E78.2 N otes :Comprehensive blood work with a fasting lipid profile is being done regularly. Substantial amounts of weight. 5 . P eripheral edema - R60.9 N otes :His edema has resolved. Furosemide was continued. 6 . S /P total left hip arthroplasty - Z96.642 N otes :He has recovered from surgery and has only occasional pain at the incision. 7 . A cute congestive heart failure, unspecified heart failure type - I50.9? Notes :He seems quite stable today and is free of tachypnea. His pulmonary examination was unremarkable and his neck veins are flat. 8 . O bstructive sleep apnea syndrome - G47.33 Plan: * Treatment: * Procedure Codes: * Preventive Medicine: Counseling: C are goal follow-up plan: Counseling for abnormal BMI given Y es Above Normal BMI Follow-up D ietary management education, guidance, and counseling, Dietary needs education, Exercise promotion: strength training, Exercise promotion: stretching, Feeding regime, Giving encouragement to exercise, Lifestyle education regarding diet, Nutrition / feeding management, Nutrition therapy, Prescribed activity/exercise education, Prescribed diet education, Prescribed dietary intake, Special diet education, Weight monitoring , Intervention, Order not done: Medical or Other reason not done * Follow Up: 2 - 3 Days (Reason: OV) * Images: * Sign off status: Completed true * Provider: Oren English MD Date: 06/23/2025 Generated for Anabelle de leon/Maren/eTransmitting on: 07/03/2025 12:15 PM EDT History and Physical Notes * HPI (History of Present Illness) Category Sub-Category Detail Notes Depression Screening PHQ-9 Little inte rest or pleasure in doing things: Not at all Feeling down, depressed, or hopeless: No t at all Trouble falling or staying asleep, or sl eeping too much: Several days Feeling tired or having little energy: N ot at all Poor appetite or overeating: Not at all Feeling bad about yourself o r that you are a failure, or have let yourself or your family down: Not at all Trouble concentrating on thi ngs, such as reading the newspaper or watching television: Not at all Moving or speaking so slowly that other people could have noticed; or the opposite, being so fidgety or restless that you have been moving around a lot more than usual: Not at all Thoughts that you would be b martina off or of hurting yourself in some way: Not at all Total Score: 1 Interpretation: Minimal Depression Fall Risk Screening Fall History Have you had any falls with injury in the past year?: No Have you had two or more falls in the st year?: No Fall Risk Assessment:: No falls in the p ast year COVID-19 Screening Questions Have you had any new onset fever, chills, cough, congestion, sore throat, shortness of breath, muscle aches?: No SDOH Questions SDOH Questions In the past year have you been worried about losing your housing?: No In the past year have you or any family members you live with been unable to get any of the following when it was really needed? Check all that apply:: Decline to answer Examination Category Sub-Category Detail Notes General Examination GENERAL APPEARANCE: pleasant , well nourished, well developed, in no acute distress, calm and relaxed: morbidly obese: man HEAD: atraumatic, normocep halic EYES: eomi, perrla, anicte nicole, conjugate EARS: normal NOSE: septum intact NECK/THYROID: no jugular venous di stention, no carotid bruit, thyroid normal HEART: no clicks, gallops, murmurs, or rubs, regular rhythm, S1, S2 normal, no s3, or vascular bruits LUNGS: clear to auscultatio n ABDOMEN: bowel sounds normal, no ascites, no organomegaly, no mass: : morbid obesity NEUROLOGIC: alert and oriented, cranial nerves 2-12 grossly intact, deep tendon reflexes 2+ symmetrical, motor strength normal upper and lower extremities, sensory exam intact SKIN: no suspicious lesion s, anicteric PERIPHERAL PULSES: normal BREASTS: no masses palpable b ilaterally MUSCULOSKELETAL: Surgical scar on hip , no peripheral edema LYMPH NODES: no enlarged lymph no jeremias,spleen normal RECTAL EXAM: not examined PSYCH: alert, oriented: tho ught process logical, goal directed: speech clear: cognitive function intact ORAL CAVITY: normal, unremarkable
--- OUTSIDE RECORDS SUMMARY | 2025-06-26 05:02 | XMS_ITS ---
Author Organization Curtis English III, MD Address [address] [address] Care Team Providers Care Glove Presser Name Role Phone Curtis English Primary Care Provider [phone] Social History Sex Assigned At : Social History Observation Description Sex Assigned At Male Encounters Encounter Location Date Provider Diagnosis Curtis English III, MD [address] [place] [address] [place] [address] 06/26/2025 Curtis English Plan Of Treatment Next Appt Details Provider Name:Curtis English, 07/06/2025 10:30:00 AM, [address] [place] [address] [place], [address], Provider Name:Curtis English, 07/12/2025 09:00:00 AM, [address] [place] [address] [place], [address], Provider Name:Curtis English, 06/27/2026 11:00:00 AM, [address] [place] [address] [place], [address], Progress Notes * ANH AKHTARDOB: [birth year] (74 yo M)Acc No.[id number]:06/26/2025 Patient: ANH HARRIS :1950 A ge:74 Y S ex:Male Address:[facility] [place], [address] * true * Date: Generated for Printi ng/Faxing/eTransmitting on: 0 07/03/2025 12:13 PM EDT
--- OUTSIDE RECORDS SUMMARY | 2025-06-27 05:00 | XMS_ITS ---
Author Organization Curtis English III, MD Address [address] [place] [address] Care Team Providers Care Workers Compensation Claims Supervisor Name Role Phone Curtis English Primary Care Provider Allergies Allergen (clinical drug ingredient) Drug/Non Drug Allergy documented on EMR Reaction Allergy Type Onset Date Status No Known Drug Allergy Unknown Drug Allergy Active No Known Food Allergy Unknown Drug Allergy Active REASON FOR VISIT Poorly controlled hypertension, Zepbound weight-loss program, Spinal stenosis, History of depression, History of prostate cancer, Morbid obesity Medications Medication SIG (Take, Route, Frequency, Duration) Notes Start Date End Date Status Valsartan 160 MG 1 tablet Orally Twic e a day 04/27/2024 Active Metoprolol Tartrate 100 MG 100 mg Orally Twice a day 12/30/2024 Active Zepbound 15 MG/0.5ML 0.5 mL Subcutaneous once a week 05/31/2025 Active Methocarbamol 750 MG 1 tablet Orally chidi ry 8 hrs 07/12/2024 Active Valsartan 320 MG 1 tablet Orally twic e a day for 30 days 06/27/2025 Active Vitamin D3 125 MCG (5000 UT) 1 capsule Orally Once a day Active Omeprazole 20 MG 1 capsule 30 minutes before morning meal Orally Once a day Active Furosemide 20 MG 1 tablet Orally Once a day 11/16/2024 Active Potassium Chloride ER 20 MEQ 1 tablet with food Orally Once a day Active Lisinopril 40 MG TAKE 1 TABLET BY TWICE DAILY Active Colace 100 MG 1 capsule as needed Orally Once a day Active Senna 8.6 MG 2 tablets at bedtime as needed Orally Once a day Active Aspirin 81 81 MG 1 tablet Orally Once a day Active Meloxicam 15 MG TAKE 1 TABLET BY ETHAN TH DAILY Active predniSONE 5 MG TAKE 2 TABLETS BY MO UTH DAILY Active hydrOXYzine HCl 10 MG 1 tablet as needed Orally Once a day Active HYDROmorphone HCl 2 MG 1 tablet as neede d Orally every 6 hrs Active MiraLax 17 GM/SCOOP 1 scoop mixed with 8 ounces of fluid Orally Once a day Active Social History Tobacco Use: Social History Observation Description Date Details (start date - stop date) Never Smoker NA - NA Sex Assigned At : Social History Observation Description Sex Assigned At Male Tobacco Control (Standard) Question Answer Notes Tobacco use: Nonsmoker Additional Findings: Tobacco non-user Aggressive nonsmoker Vital Signs Temperature 97.1 degrees Fahrenheit 06/27/20 25 Blood pressure systolic 145 mm Hg 06/27/20 25 Blood pressure diastolic 90 mm Hg 025 Heart Rate 64 /min 06/27/2025 Height 69 in 06/27/2025 Weight 273 lbs 06/27/2025 BMI 40.31 kg/m2 06/27/2025 LA: 174/97 Encounters Encounter Location Date Provider Diagnosis Curtis English III, MD [address] [place] [address] [place] [address] 06/27/2025 Curtis English Morbid obesity E66.0 1 ; Hypertension I10 ; Spinal stenosis of lumbar region with neurogenic claudication M48.062 ; History of depression Z86.59 ; Peripheral edema R60.9 ; S/P total left hip arthroplasty Z96.642 and Obstructive sleep apnea syndrome G47.33 Assessments Encounter Date Diagnosis (ICD Code) Assessment Notes Treat ment Notes Treatment Clinical Notes 06/27/2025 Morbid obesity (ICD-10 - E66.01) He now has the Zepbound. He has lost 7 pounds. He was continued on unchanged dose. 06/27/2025 Hypertension (ICD-10 - I10) His blood pressure has been elevated recently. I have increased the valsartan to 320 mg 06/27/2025 Spinal stenosis of lumbar region with neurogenic claudication (ICD-10 - M48.062) If it occurs again may be necessary to image the spinal cord in the cervical area. 06/27/2025 History of depression (ICD-10 - Z86.59) His mood is depressed as he is coping with multiple illnesses and weakness. He has not worked in a prolonged period of time.He has gained weight recently. Despite his efforts at weight loss. 06/27/2025 Peripheral edema (ICD-10 - R60.9) His edema has resolved. Furosemide was continued. 06/27/2025 S/P total left hip arthroplasty (ICD-10 - Z96.642) He has recovered from surgery and has only occasional pain at the incision. 06/27/2025 Obstructive sleep apnea syndrome (ICD-10 - G47.33) Plan Of Treatment Medication Medication Name Sig Start Date Stop Date Notes Valsartan 160 MG 1 tablet Orally Twice a day 04/27/2024 Metoprolol Tartrate 100 MG 100 mg Orally Twice a day 12/30 Zepbound 15 MG/0.5ML 0.5 mL Subcutaneous once a week 05/31/2025 Methocarbamol 750 MG 1 tablet Orally every 8 hrs Valsartan 320 MG 1 tablet Orally twic e a day for 30 days 06/27/2025 Vitamin D3 125 MCG (5000 UT) 1 capsule Orally Once a day Omeprazole 20 MG 1 capsule 30 minutes before morning meal Orally Once a day Furosemide 20 MG 1 tablet Orally Once a day 11/16/2024 Potassium Chloride ER 20 MEQ 1 tablet wi th food Orally Once a day Lisinopril 40 MG TAKE 1 TABLET BY ETHAN TH TWICE DAILY Colace 100 MG 1 capsule as needed Orally Once a day Senna 8.6 MG 2 tablets at bedtime as needed Orally Once a day Aspirin 81 81 MG 1 tablet Orally Once a day Meloxicam 15 MG TAKE 1 TABLET BY MOUTH DAILY predniSONE 5 MG TAKE 2 TABLETS BY MOUTH DAILY hydrOXYzine HCl 10 MG 1 tablet as needed Orally Once a day HYDROmorphone HCl 2 MG 1 tablet as neede d Orally every 6 hrs MiraLax 17 GM/SCOOP 1 scoop mixed with 8 ounces of fluid Orally Once a day Next Appt Details Follow Up: 2 Weeks, Reason: OV Provider Name:Curtis English, 07/06/2025 10:30:00 AM, [address] [place] [address] [address], [place], [address], Provider Name:Curtis English, 07/12/2025 09:00:00 AM, [address] [place] [address] [address], [place], [address], Provider Name:Curtis English, 06/27/2026 11:00:00 AM, [address] [facility] [address], [place], [address], Progress Notes * ANH AKHTARDOB: [birth year] (74 yo M)Acc No.[id number]:06/27/2025 Progress Notes Patient: ANH HARRIS Provider: Oren English MD :1950 A ge:74 Y S ex:Male Date:06/27/2025 Address:[address] [place] [address] [id number] Subjective: * Chief Complaints: * P oorly controlled hypertensionZepbound weight-loss programSpinal stenosisHistory of depressionHistory of prostate cancerMorbid obesity * HPI: C OVID-19 Screening: He returns to the office for weight change. An to contralateral his blood pressure which has been elevated recently. His pressure was checked with my large office cuff and was 145/90. His medications were reviewed. He has lost no weight or gained the weight since his last visit. His valsartan was increased to 320 mg daily and a followup visit and 14 days was arranged. Questions H ave you had any new onset fever, chills, cough, congestion, sore throat, shortness of breath, muscle aches? N o * ROS: G eneral/Constitutional: pain H ips knees and thoracolumbar spine. C hills d enies. F atigue a dmits. F ever d enies. E NT: Decreased hearing d enies. R espiratory: Cough d enies. C ardiovascular: Chest pain with exertion d enies. D yspnea on exertion?with moderate activity. S hortness of breath w ith exertion. G astrointestinal: Constipation o ccasional. D ecreased [...] Muscle aches d enies. P ainful joints d enies. S ciatica d enies. W eakness d enies. S kin: Itching d enies. R viri d enies. S kin lesion(s)?denies. N eurologic: Difficulty speaking d enies. D izziness d enies.?Headache d enies. L ow back pain d enies. P sychiatric: Depressed mood d enies. * Medical History: * Surgical History: S chucho Fusion Dr. Vikram Frausto 11/2019left eye cataract 04/23/21Left hip arthroplasty 06/2023 * Hospitalization/Major Diagno stic Procedure: S chucho fusion 11/2019prostatectomy for prostate cancer 2015lumbar decompression [facility] Dr. 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 He has never been and has no children. He was born and raised in [place]. * Medications: T akinghydrOXYzine HCl 10 MG Tablet 1 tablet as needed Orally Once a day HYDROmorphone HCl 2 MG Tablet 1 tablet as needed Orally every 6 hrs MiraLax 17 GM/SCOOP Powder 1 scoop mixed with 8 ounces of fluid Orally Once a day Colace 100 MG Capsule 1 capsule as needed Orally Once a day Senna 8.6 MG Tablet 2 tablets at bedtime as needed Orally Once a day Aspirin 81 81 MG Tablet Delayed Release 1 tablet Orally Once a day Meloxicam 15 MG Tablet TAKE 1 TABLET BY MOUTH DAILY predniSONE 5 MG Tablet TAKE 2 TABLETS BY MOUTH DAILY Potassium Chloride ER 20 MEQ Tablet Extended Release 1 tablet with food Orally Once a day Lisinopril 40 MG Tablet TAKE 1 TABLET BY MOUTH TWICE DAILY Vitamin D3 125 MCG (5000 UT) Capsule 1 capsule Orally Once a day Omeprazole 20 MG Capsule Delayed Release 1 capsule 30 minutes before morning meal Orally Once a day Valsartan 160 MG Tablet 1 tablet Orally Twice a day Furosemide 20 MG Tablet 1 tablet Orally Once a day Metoprolol Tartrate 100 MG Tablet 100 mg Orally Twice a day Zepbound 15 MG/0.5ML Solution Auto-injector 0.5 mL Subcutaneous once a week Methocarbamol 750 MG Tablet 1 tablet Orally every 8 hrs Taking hydrOXYzine HCl 10 MG Tablet 1 tablet as needed Orally Once a day Taking HYDROmorphone HCl 2 MG Tablet 1 tablet as needed Orally every 6 hrs Taking MiraLax 17 GM/SCOOP Powder 1 scoop mixed with 8 ounces of fluid Orally Once a day Taking Colace 100 MG Capsule 1 capsule as needed Orally Once a day Taking Senna 8.6 MG Tablet 2 tablets at bedtime as needed Orally Once a day Taking Aspirin 81 81 MG Tablet Delayed Release 1 tablet Orally Once a day Taking Meloxicam 15 MG Tablet TAKE 1 TABLET BY MOUTH DAILY Taking predniSONE 5 MG Tablet TAKE 2 TABLETS BY MOUTH DAILY Taking Potassium Chloride ER 20 MEQ Tablet Extended Release 1 tablet with food Orally Once a day Taking Lisinopril 40 MG Tablet TAKE 1 TABLET BY MOUTH TWICE DAILY Taking Vitamin D3 125 MCG (5000 UT) Capsule 1 capsule Orally Once a day Taking Omeprazole 20 MG Capsule Delayed Release 1 capsule 30 minutes before morning meal Orally Once a day Taking Valsartan 160 MG Tablet 1 tablet Orally Twice a day Taking Furosemide 20 MG Tablet 1 tablet Orally Once a day Taking Metoprolol Tartrate 100 MG Tablet 100 mg Orally Twice a day Taking Zepbound 15 MG/0.5ML Solution Auto-injector 0.5 mL Subcutaneous once a week Taking Methocarbamol 750 MG Tablet 1 tablet Orally every 8 hrs DiscontinuedSennosides 8.6 MG Tablet 2 tablets at bedtime as needed Orally Once a day Docusate Sodium 100 MG Capsule 1 capsule as needed Orally Once a day HYDROmorphone HCl 2 MG Tablet 1 tablet as needed Orally every 6 hrs hydrALAZINE HCl 100 MG Tablet 1 tablet with food Orally Twice a day Topiramate ER 50 MG Capsule Extended Release 24 Hour 1 capsule Orally Once a day Medication List reviewed and reconciled with the patientDiscontinued Sennosides 8.6 MG Tablet 2 tablets at bedtime as needed Orally Once a day Discontinued Docusate Sodium 100 MG Capsule 1 capsule as needed Orally Once a day Discontinued HYDROmorphone HCl 2 MG Tablet 1 tablet as needed Orally every 6 hrs Discontinued hydrALAZINE HCl 100 MG Tablet 1 tablet with food Orally Twice a day Discontinued Topiramate ER 50 MG Capsule Extended Release 24 Hour 1 capsule Orally Once a day Medication List reviewed and reconciled with the patient * Allergies: N o Known Drug AllergyNo Known Food Allergyno[Allergies Verified] Objective: * Vitals: H t: 69, Wt:273, BMI:40.31, BP:145/90, HR:64, Temp:97.1, Ht-cm: 175.26, Wt-k.83. LA: 174/97. * Examination: G eneral Examination: GENERAL APPEARANCE: [...] obesity. RECTAL EXAM: n ot examined. MUSCULOSKELETAL: e xtremities unremarkable, no clubbing, cyanosis or edema. PERIPHERAL PULSES: n ormal. NEUROLOGIC: a lert and oriented, cranial nerves 2-12 grossly intact, deep tendon reflexes 2+ symmetrical, motor strength normal upper and lower extremities, sensory exam intact. PSYCH: herminio falcon, oriented. Assessment: * Assessment: 1. M orbid obesity - E66.01 (Primary) N otes :He now has the Zepbound. He has lost 7 pounds. He was continued on unchanged dose. 2 . H ypertension - I10 N otes :His blood pressure has been elevated recently. I have increased the valsartan to 320 mg 3 . S chucho stenosis of lumbar region with neurogenic claudication - M48.062? Notes :If it occurs again may be necessary to image the spinal cord in the cervical area. 4 . H istory of depression - Z86.59 N otes :His mood is depressed as he is coping with multiple illnesses and weakness. He has not worked in a prolonged period of time.He has gained weight recently. Despite his efforts at weight loss. 5 . P eripheral edema - R60.9 N otes :His edema has resolved. Furosemide was continued. 6 . S /P total left hip arthroplasty - Z96.642 N otes :He has recovered from surgery and has only occasional pain at the incision. 7 . O bstructive sleep apnea syndrome - G47.33 Plan: * Treatment: 2. O thers Continue hydrOXYzine HCl Tablet, 10 MG, 1 tablet as needed, Orally, Once a day; C ontinue HYDROmorphone HCl Tablet, 2 MG, 1 tablet as needed, Orally, every 6 hrs; C ontinue MiraLax Powder, 17 GM/SCOOP, 1 scoop mixed with 8 ounces of fluid, Orally, Once a day; C ontinue Colace Capsule, 100 MG, 1 capsule as needed, Orally, Once a day; C ontinue Senna Tablet, 8.6 MG, 2 tablets at bedtime as needed, Orally, Once a day; C ontinue Aspirin 81 Tablet Delayed Release, 81 MG, 1 tablet, Orally, Once a day; C ontinue Meloxicam Tablet, 15 MG, TAKE 1 TABLET BY MOUTH DAILY; C ontinue predniSONE Tablet, 5 MG, TAKE 2 TABLETS BY MOUTH DAILY; C ontinue Potassium Chloride ER Tablet Extended Release, 20 MEQ, 1 tablet with food, Orally, Once a day; C ontinue Lisinopril Tablet, 40 MG, TAKE 1 TABLET BY MOUTH TWICE DAILY; C ontinue Vitamin D3 Capsule, 125 MCG (5000 UT), 1 capsule, Orally, Once a day; C ontinue Omeprazole Capsule Delayed Release, 20 MG, 1 capsule 30 minutes before morning meal, Orally, Once a day; C ontinue Furosemide Tablet, 20 MG, 1 tablet, Orally, Once a day; C ontinue Metoprolol Tartrate Tablet, 100 MG, 100 mg, Orally, Twice a day; Continue Zepbound Solution Auto-injector, 15 MG/0.5ML, 0.5 mL, Subcutaneous, once a week; C ontinue Methocarbamol Tablet, 750 MG, 1 tablet, Orally, every 8 hrs; S tart Valsartan Tablet, 320 MG, 1 tablet, Orally, twice a day, 30 days, 60 Tablet, Refills 11. * Procedure Codes: * Preventive Medicine: Counseling: [...] reason not done * Follow Up: 2 Weeks (Reason: OV) * Images: * Sign off status: Completed true * Provider: Oren English MD Date: 06/27/2025 Generated for Anabelle de leon/Maren/Lillyitting on: 07/03/2025 12:14 PM EDT History and Physical Notes * HPI (History of Present Illness) Category Sub-Category Detail Notes COVID-19 Screening Questions Have you had any new onset fever, chills, cough, congestion, sore throat, shortness of breath, muscle aches?: No Examination Category Sub-Category Detail Notes General Examination [...] BREASTS: no masses palpable b ilaterally MUSCULOSKELETAL: extremities unremark able, no clubbing, cyanosis or edema LYMPH NODES: no enlarged lymph no jeremias,spleen normal RECTAL EXAM: not examined PSYCH: alert, oriented ORAL CAVITY: normal, unremarkable
--- OUTSIDE RECORDS SUMMARY | 2025-06-27 05:48 | XMS_ITS ---
Author Organization Curtis English III, MD Address [address] [place] [address] Care Team Providers Care Cigar Bander Hand Name Role Phone Curtis English Primary Care Provider [phone] REASON FOR VISIT Form Completed Social History Sex Assigned At : Social History Observation Description Sex Assigned At Male Encounters Encounter Location Date Provider Diagnosis Curtis English III, MD [address] [place] [address] [place] [address] 06/27/2025 Curtis English Plan Of Treatment Next Appt Details Provider Name:Curtis English, 07/06/2025 10:30:00 AM, [address] [place] [address] [place], [address], Provider Name:Curtis English, 07/12/2025 09:00:00 AM, [address] [place] [address] [place], [address], Provider Name:Curtis English, 06/27/2026 11:00:00 AM, [address] [place] [address] [place], [address], Progress Notes * ANH AKHTARDOB: [birth year] (74 yo M)Acc No.[id number]:06/27/2025 Patient: ANH HARRIS :1950 A ge:74 Y S ex:Male Address:[facility] [place] [place], [address] * true * Date: Generated for Anabelle de leon/Maren/Swatismitting on: 0 07/03/2025 12:14 PM EDT
--- OUTSIDE RECORDS SUMMARY | 2025-07-03 05:00 | XMS_ITS ---
Author Organization Curtis English III, MD Address [address] [address] Care Team Providers Care Associate Program Manager Name Role Phone Curtis English Primary Care Provider Results Component Value Reference Range Notes Lipid Panel (Not yet reviewe d by provider) Interpretation: Performing Lab:[facility], [address] [place] [address] Notes/Report: Triglycerides 125 <150 mg/dL Desirable Triglyceride: less than 150 mg/dL Borderline High Triglyceride 150-199 mg/dL High Triglyceride: 200-499 mg/dL Very High Triglyceride: greater than or equal to 5OO mg/dL Cholesterol 207 <200 mg/dL Desirable Cholesterol: less than 200 mg/dL Borderline High Cholesterol: 200-239 mg/dL High Cholesterol: greater than 239 mg/dL LDL Cholesterol Calculated 131 <100 mg/dL Desirable LDL: less than 100 mg/dL Near Optimal/Above Optimal LDL: 110-129 mg/dL Borderline High LDL: 130-159 mg/dL High LDL: 160-189 mg/dL Very High LDL: greater than or equal to 190 mg/dL HDL Cholesterol 51 >40 mg/dL Desirable HDL: greater than 40 mg/dL Note: This HDL assay may give artificially low results in patients with liver disease. REASON FOR VISIT New Concern Medications Medication SIG (Take, Route, Frequency, Duration) Notes Start Date End Date Status Furosemide 20 MG 1 tablet Orally Once a day 11/16/2024 Active Valsartan 320 MG 1 tablet Orally twic e a day for 30 days 06/27/2025 Active Methocarbamol 750 MG 1 tablet Orally chidi ry 8 hrs 07/12/2024 Active Zepbound 15 MG/0.5ML 0.5 mL Subcutaneous once a week 05/31/2025 Active Metoprolol Tartrate 100 MG 100 mg Orally Twice a day 12/30/2024 Active Omeprazole 20 MG 1 capsule 30 minutes before morning meal Orally Once a day Active Vitamin D3 125 MCG (5000 UT) 1 capsule Orally Once a day Active Lisinopril 40 MG TAKE 1 TABLET BY ETHAN TH TWICE DAILY Active predniSONE 5 MG TAKE 2 TABLETS BY MO UTH DAILY Active Potassium Chloride ER 20 MEQ 1 tablet with food Orally Once a day Active Aspirin 81 81 MG 1 tablet Orally Once a day Active Senna 8.6 MG 2 tablets at bedtime as needed Orally Once a day Active Colace 100 MG 1 capsule as needed Orally Once a day Active MiraLax 17 GM/SCOOP 1 scoop mixed with 8 ounces of fluid Orally Once a day Active Meloxicam 15 MG TAKE 1 TABLET BY ETHAN TH DAILY Active HYDROmorphone HCl 2 MG 1 tablet as neede d Orally every 6 hrs Active hydrOXYzine HCl 10 MG 1 tablet as needed Orally Once a day Active Metoprolol Tartrate 100 MG 2 tablets Ora lly Twice a day 07/03/2025 Active Social History Sex Assigned At : Social History Observation Description Sex Assigned At Male Vital Signs Blood pressure systolic 148 mm Hg 07/03/20 25 Blood pressure diastolic 90 mm Hg 025 Height 69 in 07/03/2025 Weight 271 lbs 07/03/2025 BMI 40.02 kg/m2 07/03/2025 Encounters Encounter Location Date Provider Diagnosis Curtis English III, MD [address] [place] [address] [place] [address] 07/03/2025 Curtis English Hypertension I10 ; History of prostate cancer Z85.46 and Obstructive sleep apnea syndrome G47.33 Assessments Encounter Date Diagnosis (ICD Code) Assessment Notes Treat ment Notes Treatment Clinical Notes 07/03/2025 Hypertension (ICD-10 - I10) 07/03/2025 History of prostate cancer (ICD-10 - Z85.46) 07/03/2025 Obstructive sleep apnea syndrome (ICD-10 - G47.33) Plan Of Treatment Pending Test Test Name Order Date PROFILE, RANDOM (COMPREHENSIVE METABOLIC ) 07/03/2025 PSA, TOTAL 07/03/2025 CBC w DIFF 07/03/2025 Lipid Panel 07/03/2025 Next Appt Details Follow Up: 3 days, Reason: O V review labs Provider Name:Curtis English, 07/06/2025 10:30:00 AM, [address] [facility] [address], [place], [address], Provider Name:Curtis English, 07/12/2025 09:00:00 AM, [address] [facility] [address], [place], [address], Provider Name:Curtis English, 06/27/2026 11:00:00 AM, [address] [facility] [address], [place], [address], Progress Notes * ANH AKHTARDOB: [birth year] (74 yo M)Acc No.[id number]:07/03/2025 Progress Notes Patient: ANH HARRIS Provider: Oren English MD :1950 A ge:74 Y S ex:Male Date:07/03/2025 Address:[address] [place] [id number] Subjective: * Chief Complaints: * 1 . New Concern. * Medical History: * Medications: T aking Metoprolol Tartrate 100 MG Tablet 2 tablets Orally Twice a day , Taking hydrOXYzine HCl 10 MG Tablet 1 tablet as needed Orally Once a day , Taking HYDROmorphone HCl 2 MG Tablet 1 tablet as needed Orally every 6 hrs , Taking MiraLax 17 GM/SCOOP Powder 1 scoop mixed with 8 ounces of fluid Orally Once a day , Taking Colace 100 MG Capsule 1 capsule as needed Orally Once a day , Taking Senna 8.6 MG Tablet 2 tablets at bedtime as needed Orally Once a day , Taking Aspirin 81 81 MG Tablet Delayed Release 1 tablet Orally Once a day , Taking Meloxicam 15 MG Tablet TAKE 1 TABLET BY MOUTH DAILY , Taking predniSONE 5 MG Tablet TAKE 2 TABLETS BY MOUTH DAILY , Taking Potassium Chloride ER 20 MEQ Tablet Extended Release 1 tablet with food Orally Once a day , Taking Lisinopril 40 MG Tablet TAKE 1 TABLET BY MOUTH TWICE DAILY , Taking Vitamin D3 125 MCG (5000 UT) Capsule 1 capsule Orally Once a day , Taking Omeprazole 20 MG Capsule Delayed Release 1 capsule 30 minutes before morning meal Orally Once a day , Taking Furosemide 20 MG Tablet 1 tablet Orally Once a day , Taking Metoprolol Tartrate 100 MG Tablet 100 mg Orally Twice a day , Taking Zepbound 15 MG/0.5ML Solution Auto-injector 0.5 mL Subcutaneous once a week , Taking Methocarbamol 750 MG Tablet 1 tablet Orally every 8 hrs , Taking Valsartan 320 MG Tablet 1 tablet Orally twice a day Objective: * Vitals: H t: 69, Wt:271, BMI:40.02, BP:148/90, Ht-cm: 175.26, Wt-k.92. Assessment: * Assessment: 1. H ypertension - I10 2 . H istory of prostate cancer - Z85.46 ?3. O bstructive sleep apnea syndrome - G47.33 Plan: * Treatment: Value Reference Range T riglycerides 125 <150 - mg/dL * C holesterol 207 H <200 - mg/dL * L DL Cholesterol Calculated 131 H <100 - mg/dL * H DL Cholesterol 51 >40 - mg/dL 2.?History of prostate cancer?LAB: PROFILE, RANDOM (COMPREHENSIVE METABOLIC) ?LAB: PSA, TOTAL ?LAB: CBC w DIFF ?LAB: Lipid Panel (Collection Date & Time - 07/03/2025 09:56 AM)* Value Reference Range T riglycerides 125 <150 - mg/dL * C holesterol 207 H <200 - mg/dL * L DL Cholesterol Calculated 131 H <100 - mg/dL * H DL Cholesterol 51 >40 - mg/dL 3.?Obstructive sleep apnea syndrome?LAB: PROFILE, RANDOM (COMPREHENSIVE METABOLIC) ?LAB: PSA, TOTAL ?LAB: CBC w DIFF ?LAB: Lipid Panel (Collection Date & Time - 07/03/2025 09:56 AM)* Value Reference Range T riglycerides 125 <150 - mg/dL * C holesterol 207 H <200 - mg/dL * L DL Cholesterol Calculated 131 H <100 - mg/dL * H DL Cholesterol 51 >40 - mg/dL * Follow Up: 3 days (Reason: OV review labs) * Images: * The named appointment provid er may or may not be the originator of this progress note, and it is not deemed complete until electronically signed by the appointment provider. Sign off status: Pending * Provider: Oren English MD Date: 07/03/2025 Generated for Anabelle de leon/Maren/Miroslava on: 07/03/2025 12:14 PM EDT
[2025-07-03 10:41] LABS: MANUAL DIFF FLAG NO
[2025-07-03 10:45] LABS: Hematocrit 45.5 % (42.0-52.0); Hemoglobin 16.3 g/dl (14.0-18.0); Imm Gran Abs Auto 0.01 X10*3/uL (0.00-0.03); Imm Gran Pct Auto 0.2 % (0.0-0.4); Lymphocytes Absolute Auto 2.0 X10*3/uL (1.2-4.9); Mean Corpuscular HGB Conc 35.8 g/dl (31.0-36.0); Mean Corpuscular Hemoglobin 32.2 pg (27.0-33.0); Mean Corpuscular Volume 89.9 fL (80.0-98.0); NRBC Abs Auto 0.000 X10*3/uL (0.0-0.012); NRBC Pct Auto 0.0 /100WBC (0.0-0.2); Platelet Count 218 X10*3/uL (160-400); Red Blood Count 5.06 X10*6/uL (4.60-5.80); White Blood Count 6.3 X10*3/uL (4.8-10.8)
[2025-07-03 11:02] LABS: Alanine Aminotransferase 67 U/L (0-40); Albumin Level 4.2 g/dL (3.5-5.0); Alkaline Phosphatase 59 U/L (39-117); Anion Gap 10 (12-20); Aspartate Amino Transferase 45 U/L (5-37); Blood Urea Nitrogen 18 mg/dL (9-16); Calcium 9.1 mg/dL (8.4-10.2); Carbon Dioxide 28 mmol/L (22-29); Chloride 105 mmol/L (96-108); Cholesterol 207 mg/dL (<200); Estimated Glomerular Filt Rate 57; HDL Cholesterol 51 mg/dL (>40); Potassium 4.4 mmol/L (3.3-5.1); Sodium 139 mmol/L (135-145); Total Protein 6.6 g/dL (6.5-8.0); Triglycerides 125 mg/dL (<150)
[2025-07-03 12:07] LABS: Prostate Specific Antigen < 0.10 ng/mL (<0.05-4.0)
--- OUTSIDE RECORDS SUMMARY | 2025-07-03 12:14 | XMS_ITS | Clinical Summary ---
Author Organization [facility] Address [address] [address] Phone Care Team Providers Care Project Coach Name Role Phone Curtis English MD Primary Care Provider [phone]- [phone] Allergies Active Allergy Reactions Criticality Noted Date Comments Amoxicillin Trihydrate Unknown 09/29/2011 Converted from Generic Allergy: Augmentin Cefazolin Unknown 09/29/2011 Converted from Generic Allergy: ceFAZolin Cephalosporins Unknown 09/29/2011 Converted from Drug Class Allergy: Cephalosporins Erythromycin Base Unknown 09/29/2011 Converted from Generic Allergy: Erythromycin Macrolide Antibiotics Unknown 09/29/2011 Converted from Drug Class Allergy: Macrolides Oxycodone Itching 07/15/2023 Penicillins Unknown 09/29/2011 Converted from Drug Class Allergy: Penicillins Potassium Clavulanate Unknown 09/29/2011 Converted from Generic Allergy: Augmentin Medications atorvastatin (LIPITOR) 20 MG tablet Take 20 mg by mouth daily. 3 Active cholecalciferol (VITAMIN D3) 25 MCG (1,000 unit) tablet Take 1,000 Units by mouth daily. 3 Active docusate sodium (COLACE) 100 MG capsule Take 100 mg by mouth nightly at bedtime as needed for mild constipation. 3 Active lisinopril (PRINIVIL,ZESTRIL ) 40 MG tablet Take 40 mg by mouth daily. 3 Active metoprolol tartrate (LOPRESSOR) 50 MG tablet Take 100 mg by mouth every morning. 3 Active POTASSIUM CHLORIDE ORAL Take 20 mEq by mouth every morning. 3 Active predniSONE (DELTASONE) 5 MG tablet Take 5 mg by mouth every other day. 3 Active senna 8.6 mg tablet Take 2 tablets by mouth nightly at bedtime as needed for constipation. 3 Active acetaminophen (TYLENOL) 325 mg tablet Take 975 mg by mouth every 8 (eight) hours as needed for pain (specific location in comments) (left hip). 3 Active apixaban (ELIQUIS) 2.5 mg Take 2.5 mg by mouth every 12 (twelve) hours. 3 Active cefadroxil (DURICEF) 500 MG capsule Take 500 mg by mouth 2 (two) times a day. 3 Active dorzolamide-timol oL (COSOPT) 22.3-6.8 mg/mL ophthalmic solution Place 1 drop into each eye 2 (two) times a day. 3 Active furosemide (LASIX) 40 MG tablet Take 80 mg by mouth every morning. 3 Active HYDROmorphone (DILAUDID) 2 MG tablet Take 2-4 mg by mouth every 4 (four) hours as needed for pain (specific location in comments) (left hip). 3 Active hydrOXYzine HCL (ATARAX) 10 MG tablet Take 10 mg by mouth every 6 (six) hours as needed for itching. 3 Active methocarbamoL (ROBAXIN) 750 MG tablet Take 750 mg by mouth 4 (four) times a day as needed (muscle spasms). 3 Active omeprazole (PRILOSEC) 40 MG capsule Take 40 mg by mouth daily before breakfast. 3 Active polyethylene glycol (MIRALAX) 17 gram/dose powder Take 17 g by mouth daily. 3 Active semaglutide (OZEMPIC) 0.25 mg or 0.5 mg (2 mg/3 mL) subcutaneous injection pen Inject 0.5 mg under the skin every 7 days. Thursday 3 Active Social History Tobacco Use Types Packs/Day Years Used Date Smoking Tobacco: Never Assessed Home Health Assessment: Transportation Answer Date Recorded Lack of Transportation (Medical) No 08/12/2023 Lack of Transportation (Non-Medical) No 08/12/2023 Patient Unable or Declines to Respond No 08/12/2023 Education Answer Date Recorded Are you interested in more education? Not on dov e 02/21/2023 Are you concerned about learning? Not on file 02/21/2023 No 02/21/2023 No 02/21/2023 Digital Access Answer Date Recorded No 03/10/2023 No 03/10/2023 No 03/10/2023 Reliable internet access at home? Not on file 03/10/2023 Device with a working camera? Not on file Sex and Gender Information Value Date Recorded Sex Assigned at Not on file Legal Sex Male 5:36 PM EST Gender Identity Not on file Sexual Orientation Not on file Last Filed Vital Signs Vital Sign Reading Time Taken Comments Blood Pressure 140/76 08/12/2023 12:14 PM EDT Pulse 72 08/12/2023 12:14 PM EDT Temperature 35.4 C (95.8 F) 08/12/2023 12:14 PM EDT Respiratory Rate 14 07/21/2023 2:17 PM EDT Oxygen Saturation 97% 08/12/2023 12:14 PM EDT Inhaled Oxygen Concentration - - Weight 145.2 kg (320 lb) 05/28/2022 6:17 PM EDT Height 182.9 cm (6') 05/28/2022 6:17 PM EDT Body Mass Index 43.4 05/28/2022 6:17 PM EDT Plan of Treatment Health Maintenance Due Date Last Done Comments Adult Td,Tdap Booster 1952 LIPID PANEL 1952 POTASSIUM LEVEL 1952 DEPRESSION SCREENING 1964 SMOKING Hx and SMOKELESS TOB ACCO SCREENING 1965 HEPATITIS C SCREENING 1970 COLOGUARD 1997 COLONOSCOPY 1997 COLORECTAL CANCER SCREENING 1997 FIT TEST 1997 FOBT 1997 SIGMOIDOSCOPY 1997 VIRTUAL COLONOSCOPY 1997 PNEUMOCOCCAL VACCINES (50+ y ears) (1 of 1 - PCV) 2002 ZOSTER VACCINES (1 of 2) 2002 CREATININE LEVEL 10/25/2020 10/25/2019 INFLUENZA VACCINE (#1) 2025 COVID-19 VACCINE (2 - 2024-2 6 season) 2025 11/28/2020 RSV VACCINE (1 - 1-dose 75+ series) 2027 HEPATITIS A VACCINES Aged Out No long er eligible based on patient's age to complete this topic HIB VACCINES Aged Out No longer eligi ble based on patient's age to complete this topic MENINGOCOCCAL VACCINES (ACWY) Aged Out No longer eligible based on patient's age to complete this topic MENINGOCOCCAL VACCINES (B) Aged Out N o longer eligible based on patient's age to complete this topic Medical Devices Not on file Procedures Procedure Name Priority Date/Time Associated Diagnosis Comments CREATININE/EGFR STAT 10/25/2019 10:19 AM EST Routine medical exam from Last 3 Months or Most Recently Relevant to Health Maintenance Results * Creatinine/eGFR (10/25/2019 10:19 AM EST) CREATININE 1.00 0.5 - 1.5 mg/dL [facility] EGFR 78 >59 mL/min/1.7 3m2 [facility] Comment:If patient is black, multiply result by 1.159. Estimated glomerular filtration rate calculated using the CKD-EPI equation. Blood 10/25/2019 10:1 9 AM EST 10/25/2019 10:20 AM EST Lisa FIGUEROA LAB BLOOD ORDERABLES Final Result [facility] [address] [place], [place] [id number] from Last 3 Months or Most Recently Relevant to Health Maintenance Insurance MEDICARE A [facility]IC[facility] A BLUE [place] [facility] PPO MEDICARE A Member Subscriber Plan / Payer ( fective 2017-Present) Name:Keagan Murray Member ID:[id number] Relation to Subscriber:Self Name:Keagan Murray Subscriber ID:[id number] Payer ID:[id number] Group ID:Not on file Type:Medicare Address: [facility] [employer] [facility] [address] [place] [phone] [facility] PPO MEDICARE A [facility] OUT OF STATE PPO MEDICARE A [place] OUT OF STATE PPO MEDICARE A [facility] OUT OF STATE PPO MEDICARE A [place] OUT OF STATE PPO MEDICARE A [facility] PPO Care Teams Project Coach Relationship Specialty Start Date End Date Curtis English MD [address] [place] [phone] PCP - General Medical Oncology 05/11/23 Additional Source Comments The information contained in this document represents components of the legal health record. It is not the complete legal health record.[facility]
--- OUTSIDE RECORDS SUMMARY | 2025-07-03 12:14 | XMS_ITS | Encounter Summary ---
Author Organization [facility] Address [address] [facility] [address] [place] [address] Phone Care Team Providers Care Pattern Technician Name Role Phone Curtis English MD Primary Care Provider +1- [phone] Encounter Details Date Type Department Care Team (Late st Contact Info) Description 01/18/2020 Ancillary Orders Virtual Department [address] [place] [address] Lisa Balderas, HENRY [address] [place] [id number] [email or web address] Arthrodesis status Social History Tobacco Use Types Packs/Day Years Used Date Smoking Tobacco: Never Assessed Sex and Gender Information Value Date Recorded Sex Assigned at Not on file Legal Sex Male 5:36 PM EST Gender Identity Not on file Sexual Orientation Not on file documented as of this encounter Plan of Treatment Not on file documented as of this encounter Results * XR Thoracolumbar Spine 2 Views (01/18/2020 10:13 AM EDT) Anatomical Region Laterality Modality T-spine Radiographic Pebbles ging 01/18/2020 10:0 8 AM EDT Impressions 01/18/2020 10:13 AM EDT Postsurgical changes as above. POS - [id number] Narrative 01/18/2020 10:13 AM EDT COMPARISON: 11/21/[address] and 07/30/[address] FINDINGS: Since the CT of 11/21/2019 there has been performance of a fusion procedure with intact Cherelle rods held in place by pairs of interpedicular screws extending into the T10-12 and L2-5 vertebral bodies. There is chronic posterior spondylosis and probable minimal spondylolisthesis at L2-3. There are laminectomy defects at the L2-S1 levels. No large free bony fragments or destructive lesions apparent. Procedure Note Jodee Fox MD - 01/18/2020 COMPARISON: 11/21/[address] and 07/30/[address] FINDINGS: Since the CT of 11/21/2019 there has been performance of a fusionprocedure with intact Cherelle rods held in place by pairs ofinterpedicular screws extending into the T10-12 and L2-5 vertebral bodies.There is chronic posterior spondylosis and probable minimalspondylolisthesis at L2-3. There are laminectomy defects at the L2-C3jampxa. No large free bony fragments or destructive lesions apparent. IMPRESSION: Postsurgical changes as above. POS - [id number] Lisa FIGUEROA IMG XR SPINE Final Resul t documented in this encounter Visit Diagnoses Diagnosis Arthrodesis status Arthrodesis status documented in this encounter Care Teams Pattern Technician Relationship Specialty Start Date End Date Curtis English MD [address] [place] [id number] PCP - General Medical Oncology 05/11/23 documented as of this encounter Additional Source Comments The information contained in this document represents components of the legal health record. It is not the complete legal health record.[facility]
--- OUTSIDE RECORDS SUMMARY | 2025-07-03 12:14 | XMS_ITS | Encounter Summary ---
Author Organization [facility] Address [address] [place] [address] Phone Care Team Providers Care Gold And Silver Assayer Name Role Phone Curtis English MD Primary Care Provider +1- [phone] Encounter Details Date Type Department Care Team (Late st Contact Info) Description 09/23/2022 Procedure Pass [facility], Ct Scan - [address] [address] Social History Tobacco Use Types Packs/Day Years Used Date Smoking Tobacco: Never Assessed Sex and Gender Information Value Date Recorded Sex Assigned at Not on file Legal Sex Male 5:36 PM EST Gender Identity Not on file Sexual Orientation Not on file documented as of this encounter Plan of Treatment Not on file documented as of this encounter Visit Diagnoses Not on filedocumented in this encounter Care Teams Gold And Silver Assayer Relationship Specialty Start Date End Date Curtis English MD [address] [place] [phone] PCP - General Medical Oncology 05/11/23 documented as of this encounter Additional Source Comments The information contained in this document represents components of the legal health record. It is not the complete legal health record.[facility]
--- OUTSIDE RECORDS SUMMARY | 2025-07-03 12:14 | XMS_ITS | Encounter Summary ---
Author Organization [facility] Address [address] [facility] [address] [place] [address] Phone Care Team Providers Care Informatics Pharmacist Name Role Phone Curtis English MD Primary Care Provider +1- [phone] Encounter Details Date Type Department Care Team (Latest Contact Info) Description 12/30/2019 Transcribe Orders Virtual Department [address] [place] [address] Lisa Balderas, PA [address] [place] [address] [email or web address] Arthrodesis status (Primary Dx) Social History Tobacco Use Types Packs/Day Years Used Date Smoking Tobacco: Never Assessed Sex and Gender Information Value Date Recorded Sex Assigned at Not on file Legal Sex Male 5:36 PM EST Gender Identity Not on file Sexual Orientation Not on file documented as of this encounter Plan of Treatment Not on file documented as of this encounter Visit Diagnoses Diagnosis Arthrodesis status- Primary documented in this encounter Care Teams Informatics Pharmacist Relationship Specialty Start Date End Date Curtis English MD [facility] [place] [address] PCP - General Medical Oncology 05/11/23 documented as of this encounter Additional Source Comments The information contained in this document represents components of the legal health record. It is not the complete legal health record.[facility]
--- OUTSIDE RECORDS SUMMARY | 2025-07-03 12:14 | XMS_ITS | Encounter Summary ---
Author Organization [facility] Address [address] [facility] [address] [place] [address] Phone Care Team Providers Care Metal Sander Name Role Phone Curtis English MD Primary Care Provider +1- [phone] Reason for Referral * MRI/CAT Scan - Closed Specialty Diagnoses / Procedures Referred By Contac t Referred To Contact Radiology Diagnoses Low back pain, unspecified back pain laterality, unspecified chronicity, unspecified whether sciatica present Thoracic spine pain Procedures CT Thoracic Spine CHG CT SCAN,THORACIC SPINE,W/O CONTRAST System, Provider Not In, [facility] [address] [address] Referral ID Status Reason Start Date Expiration Date Visits Re quested Visits Authorized [id number] Closed 09/10/2022 03/09/2023 1 1 * MRI/CAT Scan - Closed Specialty Diagnoses / Procedures Referred By Contac t Referred To Contact Radiology Diagnoses Low back pain, unspecified back pain laterality, unspecified chronicity, unspecified whether sciatica present Thoracic spine pain Procedures CT Lumbar Spine CHG CT SCAN,LUMBAR SPINE,W/O CONTRAST System, Provider Not In, PhD [address] [address] Referral ID Status Reason Start Date Expiration Date Visits Re quested Visits Authorized [id number] Closed 09/10/2022 03/09/2023 1 1 Encounter Details Date Type Department Care Team (Latest Contact Info) Description 09/23/2022 Transcribe Orders [facility] Department [address] [place] [address] Rufus Eaton MD [address] [place] [phone] Low back pain, unspecified back pain laterality, unspecified chronicity, unspecified whether sciatica present (Primary Dx); Thoracic spine pain Social History Tobacco Use Types Packs/Day Years Used Date Smoking Tobacco: Never Assessed Sex and Gender Information Value Date Recorded Sex Assigned at Not on file Legal Sex Male 5:36 PM EST Gender Identity Not on file Sexual Orientation Not on file documented as of this encounter Plan of Treatment Not on file documented as of this encounter Results * CT THORACIC SPINE WITHOUT CONTRAST (10/01/2022 4:40 PM EST) Anatomical Region Laterality Modality T-spine Computed Tomogra phy 10/01/2022 5:51 PM EST Impressions 10/01/2022 6:03 PM EST Posterior instrumented fusion without evidence of hardware complication. No acute fracture. Degenerative changes in the thoracic spine, notable for moderate-severe bilateral foraminal stenosis at T8-T9. Degenerative changes in the thoracic spine, notable for moderate bilateral foraminal stenosis at L5-S1. Narrative 10/01/2022 6:[address] LUMBAR SPINE WITHOUT CONTRAST CT THORACIC SPINE WITHOUT CONTRAST COMPARISON: CT SPINE (BONE) OUTSIDE (NO INTERPRETATION) ; CT THORACIC SPINE WITH CONTRAST ; XR THORACOLUMBAR SPINE 2 VIEWS FINDINGS: Postoperative changes reflecting posterior instrumented fusion spanning T10-S1. Hardware is intact and unchanged in alignment. Posterior decompression along L1- S1. No acute fracture. No concerning osseous lesion. Unchanged retrolisthesis at L1-L2. Angular kyphosis centered at T8-T9 there there are severe endplate degenerative changes and disc vacuum phenomenon, as well as moderate-severe foraminal stenosis. Moderate bilateral foraminal stenosis is present at T9-T10. No high-grade spinal canal stenosis in the thoracic spine. Facet and endplate osteophytes at L5-S1 resulting in moderate bilateral foraminal stenosis. No significant foraminal stenosis at the remaining lumbar levels. No significant spinal canal stenosis and lumbar spine. Other Findings: Multiple healed rib fractures. Degenerative changes of the bilateral sacroiliac joints with partial ankylosis on the right. Unchanged 1.1 cm nodule in the right adrenal gland. Atherosclerotic calcifications. Colonic diverticulosis. Procedure Note Malik Olson MD - 10/01/2022 CT LUMBAR SPINE WITHOUT CONTRAST CT THORACIC SPINE WITHOUT CONTRAST COMPARISON: CT SPINE (BONE) OUTSIDE (NO INTERPRETATION) ; CTTHORACIC SPINE WITH CONTRAST ; XR THORACOLUMBAR SPINE 2 [id number] FINDINGS: Postoperative changes reflecting posterior instrumented fusion [id number]. Hardware is intact and unchanged in alignment. Posteriordecompression along L1- S1. No acute fracture. No concerning osseous lesion. Unchanged retrolisthesis at L1-L2. Angular kyphosis centered at T8-T9 there there are severe endplatedegenerative changes and disc vacuum phenomenon, as well asmoderate-severe foraminal stenosis. Moderate bilateral foraminal stenosisis present at T9-T10. No high-grade spinal canal stenosis in the thoracicspine. Facet and endplate osteophytes at L5-S1 resulting in moderate bilateralforaminal stenosis. No significant foraminal stenosis at the remaininglumbar levels. No significant spinal canal stenosis and lumbar spine. Other Findings: Multiple healed rib fractures. Degenerative changes of thebilateral sacroiliac joints with partial ankylosis on the right. Unchanged1.1 cm nodule in the right adrenal gland. Atherosclerotic calcifications.Colonic diverticulosis. IMPRESSION: Posterior instrumented fusion without evidence of hardware complication. No acute fracture. Degenerative changes in the thoracic spine, notable for moderate-severebilateral foraminal stenosis at T8-T9. Degenerative changes in the thoracic spine, notable for moderate bilateralforaminal stenosis at L5-S1. us Provider Not In System PhD IMG CT XSPECIALTY ORD ERABLES Final Result * CT LUMBAR SPINE WITHOUT CONTRAST (10/01/2022 4:40 PM EST) Anatomical Region Laterality Modality L-spine Computed Tomogra phy 10/01/2022 5:51 PM EST Impressions 10/01/2022 6:03 PM EST Posterior instrumented fusion without evidence of hardware complication. No acute fracture. Degenerative changes in the thoracic spine, notable for moderate-severe bilateral foraminal stenosis at T8-T9. Degenerative changes in the thoracic spine, notable for moderate bilateral foraminal stenosis at L5-S1. Narrative 10/01/2022 6:[address] LUMBAR SPINE WITHOUT CONTRAST CT THORACIC SPINE WITHOUT CONTRAST COMPARISON: CT SPINE (BONE) OUTSIDE (NO INTERPRETATION) ; CT THORACIC SPINE WITH CONTRAST ; XR THORACOLUMBAR SPINE 2 VIEWS FINDINGS: Postoperative changes reflecting posterior instrumented fusion spanning T10-S1. Hardware is intact and unchanged in alignment. Posterior decompression along L1- S1. No acute fracture. No concerning osseous lesion. Unchanged retrolisthesis at L1-L2. Angular kyphosis centered at T8-T9 there there are severe endplate degenerative changes and disc vacuum phenomenon, as well as moderate-severe foraminal stenosis. Moderate bilateral foraminal stenosis is present at T9-T10. No high-grade spinal canal stenosis in the thoracic spine. Facet and endplate osteophytes at L5-S1 resulting in moderate bilateral foraminal stenosis. No significant foraminal stenosis at the remaining lumbar levels. No significant spinal canal stenosis and lumbar spine. Other Findings: Multiple healed rib fractures. Degenerative changes of the bilateral sacroiliac joints with partial ankylosis on the right. Unchanged 1.1 cm nodule in the right adrenal gland. Atherosclerotic calcifications. Colonic diverticulosis. Procedure Note Malik Olson MD - 10/01/2022 CT LUMBAR SPINE WITHOUT CONTRAST CT THORACIC SPINE WITHOUT CONTRAST COMPARISON: CT SPINE (BONE) OUTSIDE (NO INTERPRETATION) ; CTTHORACIC SPINE WITH CONTRAST ; XR THORACOLUMBAR SPINE 2 [id number] FINDINGS: Postoperative changes reflecting posterior instrumented fusion [id number]. Hardware is intact and unchanged in alignment. Posteriordecompression along L1- S1. No acute fracture. No concerning osseous lesion. Unchanged retrolisthesis at L1-L2. Angular kyphosis centered at T8-T9 there there are severe endplatedegenerative changes and disc vacuum phenomenon, as well asmoderate-severe foraminal stenosis. Moderate bilateral foraminal stenosisis present at T9-T10. No high-grade spinal canal stenosis in the thoracicspine. Facet and endplate osteophytes at L5-S1 resulting in moderate bilateralforaminal stenosis. No significant foraminal stenosis at the remaininglumbar levels. No significant spinal canal stenosis and lumbar spine. Other Findings: Multiple healed rib fractures. Degenerative changes of thebilateral sacroiliac joints with partial ankylosis on the right. Unchanged1.1 cm nodule in the right adrenal gland. Atherosclerotic calcifications.Colonic diverticulosis. IMPRESSION: Posterior instrumented fusion without evidence of hardware complication. No acute fracture. Degenerative changes in the thoracic spine, notable for moderate-severebilateral foraminal stenosis at T8-T9. Degenerative changes in the thoracic spine, notable for moderate bilateralforaminal stenosis at L5-S1. us Provider Not In System PhD IMG CT XSPECIALTY ORD ERABLES Final Result documented in this encounter Visit Diagnoses Diagnosis Low back pain, unspecified back pain laterality, unspecified chronicity, unspecified whether sciatica present- Primary Thoracic spine pain Pain in thoracic spine Low back pain, unspecified back pain laterality, unspecified chronicity, unspecified whether sciatica present Thoracic spine pain Pain in thoracic spine documented in this encounter Care Teams Metal Sander Relationship Specialty Start Date End Date Curtis English MD [address] [place] [address] PCP - General Medical Oncology 05/11/23 documented as of this encounter Additional Source Comments The information contained in this document represents components of the legal health record. It is not the complete legal health record.[facility]
--- OUTSIDE RECORDS SUMMARY | 2025-07-03 12:14 | XMS_ITS | Patient Health Record ---
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) Active confirmed Plan Of Treatment Pending Test Test Name Order Date *Uric Acid, Serum 08/29/2019 *Sedimentation Rate-Westergren 9 [id number] OF HEMATOMA/FLUID 019 Insurance Providers Payer Name Payer Address Payer Phone Subscriber Number Group Number Insured Name Patient Relationship to Insured Coverage Start Date Coverage End Date [employer] [address] [place] [address] [phone] [id number] Keagan Murray Self - patient is the insured Medical (General) History Medical History History ICD Code Back,Hip,and Knee pain Broken bones Cataracts Gall bladder problems Glaucoma Gout High blood pressure Numbness Measles Chicken pox Joint implants/screws Transfusions Surgical History Surgery Date(Month/Year) back surgery appendectomy gall bladder Hernia Repair prostate Hand Surgery femur
--- OUTSIDE RECORDS SUMMARY | 2025-07-03 12:14 | XMS_ITS | Encounter Summary ---
Author Organization [facility] Address [address] [facility] [address] [place] [address] Phone Care Team Providers Care Folded Cloth Taper Name Role Phone Curtis English MD Primary Care Provider [phone] Encounter Details Date Type Department Care Team (Late st Contact Info) Description 05/24/2024 Ancillary Orders Virtual Department [address] [place] [address] Curtis English MD [address] [place] [address] Renal artery stenosis (Primary Dx) Social History Tobacco Use Types [...] documented as of this encounter Results * US Kidneys (05/24/2024 10:32 AM EDT) Anatomical Region Laterality Modality Abdomen, Kidney Ultrasound 05/24/2024 3:46 PM EDT Narrative 05/24/2024 3:54 PM EDT RENAL ARTERY DUPLEX History: Labile hypertension raising question of renal vascular hypertension. COMPARISON: No prior renal arterial vascular imaging or other form of renal imaging available. TECHNIQUE: A duplex ultrasound evaluation of the renal arteries/veins was performed using bueno scale, color duplex and spectral Doppler analysis. Velocity (cm/s) Aorta: 95 RIGHT RENAL ARTERY (cm/s) Proximal, Mid and Distal: None this, 164 and 64 Proximal renal artery/Aortic Ratio: N/A Stenosis: Uncertain whether or not there is flow limiting stenosis but is noted that intrarenal flow at the arcuate artery level shows rapid early systolic peaks making flow-limiting stenosis within the main renal artery less likely. RIGHT PARENCHYMA Resistance Index (RI): Upper, Mid and Lower Pole: 0.7, 0.7 and 0.7 Right kidney size: 6.4 x 9.9 cm LEFT RENAL ARTERY (cm/s) Proximal, Mid and Distal: N/A, 83 and 66 Proximal renal artery/Aortic Ratio: N/A Stenosis: Not definitively assessed given lack of visualization of proximal left renal artery but it is noted that early, rapid systolic peaks are noted at the arcuate artery level throughout the mid and lower left kidney. Suboptimal assessment of upper pole vessels at the arcuate artery level LEFT PARENCHYMA Resistance Index (RI): Upper, Mid and Lower Pole: 0.7, 0.7 and 0.6. Left kidney size: 6.4 x 11.0 cm FINDINGS: 1.7 cm anechoic lower left parapelvic cysts. No solid, suspicious renal mass, calculi or hydronephrosis. Diffuse renal cortical thinning evident bilaterally. IMPRESSIONS: 1. No evidence of flow limiting renal artery stenosis. 2. Renal cortical thinning bilaterally. Simple cyst left kidney. No concerning focal abnormality identified affecting either kidney. Procedure Note Jovan Ghosh MD - 05/24/2024 RENAL ARTERY DUPLEX History: Labile hypertension raising question of renal vascularhypertension. COMPARISON: No prior renal arterial vascular imaging or other form ofrenal imaging available. TECHNIQUE: A duplex ultrasound evaluation of the renal arteries/veins was performedusing bueno scale, color duplex and spectral Doppler analysis. Velocity (cm/s) Aorta: 95 RIGHT RENAL ARTERY (cm/s) Proximal, Mid and Distal: None this, 164 and 64 Proximal renal artery/Aortic Ratio: N/A Stenosis: Uncertain whether or not there is flow limiting stenosis but isnoted that intrarenal flow at the arcuate artery level shows rapid earlysystolic peaks making flow-limiting stenosis within the main renal arteryless likely. RIGHT PARENCHYMA Resistance Index (RI): Upper, Mid and Lower Pole: 0.7, 0.7 and 0.7 Right kidney size: 6.4 x 9.9 cm LEFT RENAL ARTERY (cm/s) Proximal, Mid and Distal: N/A, 83 and 66 Proximal renal artery/Aortic Ratio: N/A Stenosis: Not definitively assessed given lack of visualization ofproximal left renal artery but it is noted that early, rapid systolicpeaks are noted at the arcuate artery level throughout the mid and lowerleft kidney. Suboptimal assessment of upper pole vessels at the arcuateartery level LEFT PARENCHYMA Resistance Index (RI): Upper, Mid and Lower Pole: 0.7, 0.7 and 0.6. Left kidney size: 6.4 x 11.0 cm FINDINGS: 1.7 cm anechoic lower left parapelvic cysts. No solid, suspicious renalmass, calculi or hydronephrosis. Diffuse renal cortical thinning evidentbilaterally. IMPRESSIONS: 1. No evidence of flow limiting renal artery stenosis. 2. Renal cortical thinning bilaterally. Simple cyst left kidney. Noconcerning focal abnormality identified affecting either kidney. Curtis English MD [facility] RENAL Final Resu lt documented in this encounter Visit Diagnoses Diagnosis Renal artery stenosis- Primary Atherosclerosis of renal artery Renal artery stenosis Atherosclerosis of renal artery documented in this encounter Care Teams Folded Cloth Taper Relationship Specialty Start Date End Date Curtis English MD [address] [place] [address] PCP - General Medical Oncology 05/11/23 documented as of this encounter Additional Source Comments The information contained in this document represents components of the legal health record. It is not the complete legal health record.[facility]
--- OUTSIDE RECORDS SUMMARY | 2025-07-03 12:14 | XMS_ITS | Clinical Summary ---
Author Organization [facility] Address [address] [place] [address] Care Team Providers Care Network Systems Integrator Name Role Phone Curtis English MD Primary Care Provider [phone] Allergies Active Allergy Reactions Criticality Noted Date [...] - PCV) 2017 COVID-19 Vaccine ( season) 2025 09/29/2022, 09/09/2021, 11/28/2020, Additional history exists Influenza Vaccine (#1) 2025 RSV Adult > 60+ Yrs or (1 - 1-dose 75+ series) 2027 Hepatitis B Vaccines Aged Out No long er eligible based on patient's age to complete this topic RSV Ped < 20 months Aged Out No longe r eligible based on patient's age to complete this topic Care Teams Network Systems Integrator Relationship Specialty Start Date End Date Curtis English MD [address] [place] [id number] PCP - General Oncology 06/17/21
--- OUTSIDE RECORDS SUMMARY | 2025-07-03 12:14 | XMS_ITS | Encounter Summary ---
Author Organization [facility] Address [address] [place] [address] Phone Care Team Providers Care Heavy Lift Rigger Name Role Phone Curtis English MD Primary Care Provider [phone] Encounter Details Date Type Department Care Team (Late st Contact Info) Description 12/30/2019 Transcribe Orders Virtual Department [address] [place] [address] Lisa Balderas, PA [address] [place] [address] [email or web address] Social History Tobacco Use Types Packs/Day Years [...] on filedocumented in this encounter Care Teams Heavy Lift Rigger Relationship Specialty Start Date End Date Curtis English MD [facility] [place] [address] PCP - General Medical Oncology 05/11/23 documented as of this encounter Additional Source Comments The information contained in this document represents components of the legal health record. It is not the complete legal health record.[facility]
--- OUTSIDE RECORDS SUMMARY | 2025-07-03 12:14 | XMS_ITS | Encounter Summary ---
Author Organization [facility] Address [address] [facility] [address] [place] [address] Phone Care Team Providers Care Veneer Department Manager Name Role Phone Curtis English MD Primary Care Provider [phone] Encounter Details Date Type Department Care Team (Late st Contact Info) Description 09/23/2022 Procedure Pass [facility], Ct Scan - [address] [address] Social History Tobacco Use Types Packs/Day Years [...] on filedocumented in this encounter Care Teams Veneer Department Manager Relationship Specialty Start Date End Date Curtis English MD [address] [place] [phone] PCP - General Medical Oncology 05/11/23 documented as of this encounter Additional Source Comments The information contained in this document represents components of the legal health record. It is not the complete legal health record.[facility]
--- OUTSIDE RECORDS SUMMARY | 2025-07-03 12:14 | XMS_ITS | Encounter Summary ---
Author Organization [facility] Address [address] [place] [address] Phone Care Team Providers Care Burring Wheel Operator Name Role Phone Curtis English MD Primary Care Provider [phone] Reason for Referral * Outpatient Procedure - Closed Specialty Diagnoses / Procedures Referred By Bozena clifford Referred To Contact Radiology Diagnoses Renal artery stenosis Procedures US Renal Artery/ Veins Duplex Curtis English MD Phone: tel: Referral ID Status Reason Start Date Expiration Date Visits Re quested Visits Authorized [id number] Closed 05/10/2024 05/10/2025 1 1 Encounter Details Date Type Department Care Team (Latest Contact Info) Description 05/10/2024 Transcribe Orders Virtual Department [address] [place] [address] Curtis English MD [address] [place] [address] Renal artery stenosis (Primary Dx) Social History [...] as of this encounter Results * US RENAL ARTERIES AND VEINS DUPLEX COMPLETE (05/24/2024 10:29 AM EDT) Anatomical Region Laterality Modality Abdominal Vasculature Ultrasound 05/24/2024 3:46 PM EDT Narrative 05/24/2024 [...] Noconcerning focal abnormality identified affecting either kidney. us Curtis English MD IMG US ABDOMEN Final Resu lt documented in this encounter Visit Diagnoses Diagnosis Renal artery stenosis- Primary Atherosclerosis of renal artery Renal artery stenosis Atherosclerosis of renal artery documented in this encounter Care Teams Burring Wheel Operator Relationship Specialty Start Date End Date Curtis English MD [address] [place] [id number] PCP - General Medical Oncology 05/11/23 documented as of this encounter Additional Source Comments The information contained in this document represents components of the legal health record. It is not the complete legal health record.[facility]
--- OUTSIDE RECORDS SUMMARY | 2025-07-03 12:15 | XMS_ITS | Encounter Summary ---
Author Organization [facility] Address [address] [facility] [address] [place] [address] Phone Care Team Providers Care Oracle E Business Developer Name Role Phone Curtis English MD Primary Care Provider [phone]- [phone] Encounter Details Date Type Department Care Team ([facility] st Contact Info) Description 09/12/2019 Ancillary Orders [facility], X-Ray - [address] [address] Michael Cordero MD [address] [facility] [address] [place] [address] Right thigh pain Social History Tobacco Use Types Packs/Day Years Used Date Smoking Tobacco: Never Assessed Sex and Gender Information Value Date Recorded Sex Assigned at Not on file Legal Sex Male 5:36 PM EST Gender Identity Not on file Sexual Orientation Not on file documented as of this encounter Plan of Treatment Not on file documented as of this encounter Results * XR HIP 2 VW RIGHT PLUS PELVIS (09/12/2019 1:57 PM EST) Anatomical Region Laterality Modality Hip, Pelvis Radiographic Pebbles ging 09/12/2019 2:18 PM EST Addenda Addendum by Gracie Wray MD on 09/25/2019 9:48 AM EST HISTORY: As above. No trauma. COMPARISON: MRI pelvis 06/06/2008. RIGHT HIP/PELVIC RADIOGRAPH FINDINGS: Three views obtained. No acute fracture or malalignment. Stable mild bilateral hip joint spurring. Incompletely imaged is lower lumbar spine fusion hardware and laminectomy. No bone lesions. Soft tissues are normal. IMPRESSION: Stable mild bilateral hip degenerative spurring. No >>> significant <<< arthritis. POS - [id number] Edited by: Beena Moreno on 09/24/2019 3:50 PM Impressions 09/12/2019 2:20 PM EST Stable mild bilateral hip degenerative spurring. No static arthritis. POS - [id number] Narrative 09/12/2019 2:20 PM EST HISTORY: As above. No trauma. COMPARISON: MRI pelvis 06/06/2008. RIGHT HIP/PELVIC RADIOGRAPH FINDINGS: Three views obtained. No acute fracture or malalignment. Stable mild bilateral hip joint spurring. Incompletely imaged is lower lumbar spine fusion hardware and laminectomy. No bone lesions. Soft tissues are normal. Procedure Note Gracie Wray MD - 09/12/2019 HISTORY: As above. No trauma. COMPARISON: MRI pelvis 06/06/2008. RIGHT HIP/PELVIC RADIOGRAPH FINDINGS: Three views obtained. No acute fracture or malalignment. Stable mildbilateral hip joint spurring. Incompletely imaged is lower lumbar spinefusion hardware and laminectomy. No bone lesions. Soft tissues arenormal. IMPRESSION: Stable mild bilateral hip degenerative spurring. No static arthritis. POS - [id number] Michael Cordero MD IMG XR PELVIS Edite d Result - Final documented in this encounter Visit Diagnoses Diagnosis Right thigh pain Pain in soft tissues of limb Right thigh pain Pain in soft tissues of limb documented in this encounter Care Teams Oracle E Business Developer Relationship Specialty Start Date End Date Curtis English MD [address] [place] [id number] PCP - General Medical Oncology 05/11/23 documented as of this encounter Additional Source Comments The information contained in this document represents components of the legal health record. It is not the complete legal health record.[facility]
--- OUTSIDE RECORDS SUMMARY | 2025-07-03 12:15 | XMS_ITS | Clinical Summary ---
Author Organization [facility] ity Address [address] [place] [address] Care Team Providers Care Cosmetologist Name Role Phone Curtis English MD Primary Care Provider [phone] Immunizations Name Administration Dates Next Due Moderna [...] Panel) 09/20/2022 Colorectal Cancer Screening: Colonoscopy 09/20/2022 Falls Risk Assessment 09/20/2022 Hepatitis C Screening 09/20/2022 Social Influencers of Health Screening 09/20/2022 Depression Screening 10/19/2024 COVID-19 Vaccine (3 - 2024-2 6 season) 2025 11/28/2020, 10/31/2020 Influenza Vaccine (#1) 2025 RSV [...] Documents on File Type Date Recorded Patient Enzyme Chemist Expl anation Health Care Decision (hx) 10/03/2010 AD ROSAS DIRECTIVE Health Care Decision (hx) 10/03/2010 AD ROSAS DIRECTIVE Health Care Decision (hx) 10/03/2010 AD ROSAS DIRECTIVE Health Care Decision (hx) 10/03/2010 AD ROSAS DIRECTIVE Care Teams Cosmetologist Relationship Specialty Start Date End Date Curtis English MD PCP - General Oncology 06/17/21
--- OUTSIDE RECORDS SUMMARY | 2025-07-03 12:15 | XMS_ITS | Encounter Summary ---
Author Organization [facility] Address [address] [facility] [address] [place] [address] Phone Care Team Providers Care Aircraft Stress Analyst Name Role Phone Curtis English MD Primary Care Provider [phone] Encounter Details Date Type Department Care Team (Late st Contact Info) Description 08/22/2019 Ancillary Orders [facility], X-Ray - [address] [address] Jovan Chavis MD [address] [place] [address] [email or web address] Pain in left foot Social History Tobacco Use Types Packs/Day Years Used Date Smoking Tobacco: Never Assessed Sex and Gender Information Value Date Recorded Sex Assigned at Not on file Legal Sex Male 5:36 PM EST Gender Identity Not on file Sexual Orientation Not on file documented as of this encounter Plan of Treatment Not on file documented as of this encounter Results * XR FOOT 3 OR MORE VIEWS (LEFT) (08/22/2019 2:33 PM EST) Anatomical Region Laterality Modality Foot Left Radiographic Pebbles ging 08/22/2019 2:38 PM EST Impressions 08/22/2019 2:41 PM EST Degenerative changes and evidence of prior injury noted without definitive acute fracture confirmed. S/S: foot, complete, left. Left foot pain, dropped safe on foot 3 weeks ago, medial pain POS - [id number] Narrative 08/22/2019 2:41 PM EST COMPARISON: None FINDINGS: 4 views of the left foot are obtained. There are degenerative changes in the first MTP joint and at the first cuneiform-first metatarsal articulation. Deformity of the fifth metatarsal and fifth proximal phalanx is seen consistent with prior fracturing which is healed in deformity. There is prominent plantar calcaneal spurring consistent with plantar fasciitis. I cannot confirm definitive acute fracture. Procedure Note Charlie Burk MD - 08/22/2019 COMPARISON: None FINDINGS: 4 views of the left foot are obtained. There are degenerative changes in the first MTP joint and at the firstcuneiform- first metatarsal articulation. Deformity of the fifth metatarsal and fifth proximal phalanx is seenconsistent with prior fracturing which is healed in deformity. There is prominent plantar calcaneal spurring consistent with plantarfasciitis. I cannot confirm definitive acute fracture. IMPRESSION: Degenerative changes and evidence of prior injury noted without definitiveacute fracture confirmed. S/S: foot, complete, left. Left foot pain, dropped safe on foot 3 weeksago, medial pain POS - [id number] Jovan Chavis MD IMG XR LOWER EXTREMITY Final Result documented in this encounter Visit Diagnoses Diagnosis Pain in left foot Pain in soft tissues of limb Pain in left foot Pain in soft tissues of limb documented in this encounter Care Teams Aircraft Stress Analyst Relationship Specialty Start Date End Date Curtis English MD [address] [place] [id number] PCP - General Medical Oncology 05/11/23 documented as of this encounter Additional Source Comments The information contained in this document represents components of the legal health record. It is not the complete legal health record.[facility]
--- OUTSIDE RECORDS SUMMARY | 2025-07-03 12:15 | XMS_ITS | Encounter Summary ---
Author Organization [facility] Address [address] [place] [address] Phone Care Team Providers Care Credit Administration Specialist Name Role Phone Curtis English MD Primary Care Provider [phone] Encounter Details Date Type Department Care Team (Latest Contact Info) Description 05/23/2022 Transcribe Orders Virtual Department [address] [place] [address] Oswaldo Mahoney, DO [address] [place] [address] [email or web address] Radiculopathy, thoracic region (Primary Dx); Spinal stenosis of lumbar region with neurogenic claudication Social History Tobacco Use Types Packs/Day Years Used Date Smoking Tobacco: Never Assessed Sex and Gender Information Value Date Recorded Sex Assigned at Not on file Legal Sex Male 5:36 PM EST Gender Identity Not on file Sexual Orientation Not on file documented as of this encounter Plan of Treatment Not on file documented as of this encounter Visit Diagnoses Diagnosis Radiculopathy, thoracic region- Primary Thoracic or lumbosacral neuritis or radiculitis, unspecified Spinal stenosis of lumbar region with neurogenic claudication documented in this encounter Care Teams Credit Administration Specialist Relationship Specialty Start Date End Date Curtis English MD [address] [place] [phone] PCP - General Medical Oncology 05/11/23 documented as of this encounter Additional Source Comments The information contained in this document represents components of the legal health record. It is not the complete legal health record.[facility]
--- OUTSIDE RECORDS SUMMARY | 2025-07-03 12:15 | XMS_ITS | Patient Health Record ---
Author Organization Curtis English III, MD Address [address] [facility] [place] [address] Care Team Providers Care Medical Lab Tech Instructor Name Role Phone Curtis English Primary Care Provider Allergies Allergen (clinical drug ingredient) Drug/Non Drug Allergy documented on EMR Reaction Allergy Type Onset Date Status No Known Drug Allergy Unknown Drug Allergy Active No Known Food Allergy Unknown Drug Allergy Active Results Component Value Reference Range Notes Lipid Panel (Not yet reviewe d by provider) Interpretation: Performing Lab:[facility], [address] [place] [id number] Notes/Report: Triglycerides 125 <150 mg/dL Desirable Triglyceride: [...] low results in patients with liver disease. SCREENING COLONOSCOPY Reviewed date:07/08/2024 10:29:12 AM Interpretation:undefined Performing Lab: Notes/Report: undefined MR head/brain wo con Reviewed date:01/14/2025 08:20:11 AM Interpretation: Performing Lab: Notes/Report: [address] [address] Magnetic Resonance Report Signed Patient: Anh Akhtar MR#: [id number] : 1950 Acct:[id number] Age/Sex: 74 / M ADM Date: 11/29/24 Loc: HO.MRI Attending Dr: Curtis English MD Ordering Physician: Curtis English MD Date of Service: 11/29/24 Procedure(s): MR head/brain wo con Accession Number(s): [id number] cc: Curtis English MD EXAMINATION: MR BRAIN WITHOUT CONTRAST CLINICAL INFORMATION: Transient paralysis arms and legs x 5 minutes episodes. COMPARISON: None available. TECHNIQUE: MRI of the brain was obtained using routine sequences without contrast. Examination performed on a Siemens 1.5 Christine high-field unit. FINDINGS: There is no diffusion restriction. There is no intracranial hemorrhage, acute infarction, mass effect, or edema. Ventricles, sulci, and cisterns are normal in size and configuration for patient age. Mildly prominent extra-axial spaces overlying the frontal convexities. No shift of midline. No abnormal hemosiderin deposition is identified. There are a few scattered punctate foci of white matter T2 hyperintensity in the periventricular, subcortical, and hemispheric deep white matter, and central/posterior janes. These are nonspecific, however statistically are most likely in keeping with small vessel ischemic changes. Midline structures appear normally formed. The pituitary gland appears normal. Posterior fossa structures appear normal. Cerebellar tonsils are appropriately located. Major flow voids are preserved within the skull base. The globes and orbital contents demonstrate no abnormalities. There are bilateral lens replacements. Tiny mucous retention cyst left maxillary sinus. Paranasal sinuses are otherwise clear bilaterally. The mastoids and tympanic cavities are normally aerated. Extracranial soft tissues demonstrate no abnormalities. No suspicious bone marrow changes are evident. Atlantoaxial joint is normal. MR/MR head/brain wo con IMPRESSION: 1. No evidence of intracranial hemorrhage, acute infarction, mass effect, or edema. 2. A few tiny scattered T2 intense white matter foci, entirely nonspecific but statistically most likely related to small vessel ischemic change. 3. Prominent extra-axial spaces overlying the frontal convexities. Electronically signed by: Johnson Abreu MD 11/29/2024 04:39 PM EST Dictated By: Johnson Abreu MD Signed By: <Electronically signed by Johnson Abreu MD in OV> 11/29/24 1639 DD/ 1552 TD/TT: 11/29/24 1607 Reel Slitter: [place] [address] Magnetic Resonance Report Signed Patient: Ahn Akhtar MR#: [id number] : 1950 Acct:[id number] Age/Sex: 74 / M ADM Date: 11/29/24 Loc: HO.MRI Attending Dr: Curtis English MD Ordering Physician: Curtis English MD Date of Service: 11/29/24 Procedure(s): MR head/brain wo con Accession Number(s): [id number] cc: Curtis English MD EXAMINATION: MR BRAIN WITHOUT CONTRAST CLINICAL INFORMATION: Transient paralysis arms and legs x 5 minutes episodes. COMPARISON: None available. TECHNIQUE: MRI of the brain was obtained using routine sequences without contrast. Examination performe d on a Siemens 1.5 Christine high-field unit. FINDINGS: There is no diffusio n restriction. There is no intracranial hemorrhage, acute infarction, mass effect, or edema. Ventricles, sulci, a nd cisterns are normal in size and configuration for patient age. Mil dly prominent extra-axial spaces overlying the frontal convexities. No shift of midline. No abnormal hemoside rin deposition is identified. There are a few scattered punctate foci of white matter T2 hyperintensity in th e periventricular, subcortical, and hemispheric deep white matter, a nd central/posterior janes. These are nonspecific, however statisticall y are most likely in keeping with small vessel ischemic changes. Midline structures appear normally formed. The pituitary gland appears normal. Posterior fossa structures appear normal. Cerebellar tonsils are appropriately located. Major flow voids are preserved within the skull base. The globes and orbit al contents demonstrate no abnormalities. There are bilateral lens replacements. Tiny mucous retentio n cyst left maxillary sinus. Paranasal sinuses are otherwise clear bilaterally. The mastoids and tympanic cavities are normally aerated. Extracranial soft tissues demonstrate no abnormalities. No suspicious bone marrow changes are evident. Atlantoaxial joint i s normal. MR/MR head/brain wo con IMPRESSION: 1. No evidence of intracranial hemorrhage, acute infarction, mass effect, or edema. 2. A few tiny scatte red T2 intense white matter foci, entirely nonspecific but statistically most likely related to small vessel ischemic change. 3. Prominent extra-axial spaces overlying the frontal convexities. Electronically emeka d by: Johnson Abreu MD 11/29/2024 04:39 PM [facility] Dictated By: Johnson Abreu MD Signed By: <Electronically signed by Johnson Abreu MD in OV> 11/29/24 1639 DD/ 1552 TD/TT: 11/29/24 1603 Reel Slitter: Complete Blood Count Auto Di ff (Not yet reviewed by provider) Interpretation: Performing Lab:[facility], [address] [place] [phone] Notes/Report: White Blood Count 6.3 4.8-10.8 X10*3/uL Red Blood Count 5.06 4.60-5.80 X10*6/uL Hemoglobin 16.3 14.0-18.0 g/dl Hematocrit 45.5 42.0-52.0 % Mean Corpuscular Volume 89.9 80.0-98.0 fL Mean Corpuscular Hemoglobin 32.2 27.0-33.0 pg Mean Corpuscular HGB Conc 35.8 31.0-36.0 g/dl Red Cell Distribution Width 12.7 11.0-16.0 % Platelet Count 218 160-400 X10*3/uL Mean Platelet Volume 9.7 9.4-12.4 fL Neutrophils Percent Auto 52.7 45-73 % Imm Gran Pct Auto 0.2 0.0-0.4 % Lymphocytes Percent Auto 32.3 20-40 % Monocytes Percent Auto 11.2 2-11 % Eosinophils Percent Auto 2.8 0-4 % Basophils Percent Auto 0.8 0-2 % NRBC Pct Auto 0.0 0.0-0.2 /100WBC Neutrophils Absolute Auto 3.3 2.0-8.3 x10*3/u L Imm Gran Abs Auto 0.01 0.00-0.03 X10*3/uL Lymphocytes Absolute Auto 2.0 1.2-4.9 X10*3/u L Monocytes Absolute Auto 0.7 0.1-1.2 X10*3/uL Eosinophils Absolute Auto 0.2 0.0-0.4 X10*3/u L Basophils Absolute Auto 0.1 0.0-0.2 X10*3/uL NRBC Abs Auto 0.000 0.0-0.012 X10*3/uL Comprehensive Met. Panel (No t yet reviewed by provider) Interpretation: Performing Lab:[facility], [address] [place] [phone] Notes/Report: Sodium 139 135-145 mmol/L Potassium 4.4 3.3-5.1 mmol/L Chloride 105 96-108 mmol/L Carbon Dioxide 28 22-29 mmol/L Anion Gap 10 12-20 Blood Urea Nitrogen 18 9-16 mg/dL Creatinine 1.25 0.5-1.4 mg/dL Estimated Glomerular Filt Rate 57 Chronic Kidney Disease: Estimated GFR < 60 mL/min/1.73m2 Severe Kidney Disease: Estimated GFR < 15 mL/min/1.73m2 Glucose Random 85 60-115 mg/dL Calcium 9.1 8.4-10.2 mg/dL Bilirubin Total 0.8 0.0-1.0 mg/dL Aspartate Amino Transferase 45 5-37 U/L Alanine Aminotransferase 67 0-40 U/L Total Protein 6.6 6.5-8.0 g/dL Albumin Level 4.2 3.5-5.0 g/dL Alkaline Phosphatase 59 39-117 U/L Prostate Specific Antigen (N ot yet reviewed by provider) Interpretation: Performing Lab:[facility], [address] [place] [phone] Notes/Report: Prostate Specific Antigen < 0.10 <0.05-4.0 ng/mL PSA methodology: Salvador Alinity i Chemiluminescent Microparticle Immunoassay (CMIA) Reason For Referral Reason evaluate and treatme nt for moderately severe sleep apnea Diagnosis 1 Obstructive sleep ap yanick syndrome (G47.33) Referral Organization Curtis English III, MD Referring Provider First Name Curtis Referring Provider Last Name English Referring Provider Speciality Internal M edicine Referred Provider [facility] er, Pulmonology Referred Provider Specialty Pulmonary Di seases General Notes Frarah Leong CMA 05/23 01:16:50 PM >ref/progress note/sleep study faxed to [facility] at pt aware of this, Farrah Leong TEST AND TURN UP TECHNICIAN 06/06/2025 10:40:28 AM >Spoke to pulmonary dept they will call pt this week to set up appt, Dang Farrah BEVERLY 06/08/2025 02:38:08 PM > Called [facility] de[facility] they stated they do have referral and will be calling pt with Lesli pagan Amber 06/09/2025 10:01:18 AM > patient is scheduled for 09/04/25 @ 1:00pm with Dr. Randall Referral Priority Routine Referral Appointment Date 09/04/2025 Medications Medication SIG (Take, Route, Frequency, Duration) Notes Start Date End Date Status HYDROmorphone HCl 2 MG 1 tablet as neede d Orally every 6 hrs Active Furosemide 20 MG 1 tablet Orally Once a day 11/16/2024 Active hydrOXYzine HCl 10 MG 1 tablet as needed Orally Once a day Active Omeprazole 20 MG 1 capsule 30 minutes before morning meal Orally Once a day Active Metoprolol Tartrate 100 MG 2 tablets Ora lly Twice a day 07/03/2025 Active Vitamin D3 125 MCG (5000 UT) 1 capsule Orally Once a day Active Lisinopril 40 MG TAKE 1 TABLET BY ETHAN TH TWICE DAILY Active Aspirin 81 81 MG 1 tablet Orally Once a day Active Valsartan 320 MG 1 tablet Orally twic e a day for 30 days 06/27/2025 Active Senna 8.6 MG 2 tablets at bedtime as needed Orally Once a day Active Methocarbamol 750 MG 1 tablet Orally chidi ry 8 hrs 07/12/2024 Active Colace 100 MG 1 capsule as needed Orally Once a day Active Zepbound 15 MG/0.5ML 0.5 mL Subcutaneous once a week 05/31/2025 Active MiraLax 17 GM/SCOOP 1 scoop mixed with 8 ounces of fluid Orally Once a day Active Metoprolol Tartrate 100 MG 100 mg Orally Twice a day 12/30/2024 Active predniSONE 5 MG TAKE 2 TABLETS BY MO UTH DAILY Active Meloxicam 15 MG TAKE 1 TABLET BY ETHAN TH DAILY Active Potassium Chloride ER 20 MEQ 1 tablet with food Orally Once a day Active Immunizations Vaccine Route Administration Date Status Comme nts COVID- 19 Vaccine Unknown 09/29/2022 Administered COVID 19 Moderna Unknown 10/31/2020 Administered COVID 19 Moderna Unknown 09/09/2021 Administered COVID 19 Moderna Unknown 11/28/2020 Administered COVID 19 Moderna Unknown 09/25/2022 Administered COVID Moderna Bivalent Unknown 09/25/2022 Administered Social History Tobacco Use: Social History Observation [...] ast year? No Points 0 Interpretation Negative Problems Problem Type SNOMED Code ICD Code Onset Dates Problem Status W/U Status Risk Notes Problem Hypertension (32338784) Hypertension (I10) Active confirmed His blood pressure has been elevated recently. I have increased the valsartan to 320 mg Problem 637106471 Mixed hyperlipidemia (E78.2) Active confirmed Comprehensive blood work with a fasting lipid profile is being done regularly. Substantial amounts of weight. Problem 80001955 Other chronic pain (G89.29) Active confirmed His pain is controlled at this time with current medications. He has a new orthopedic surgeon, who will try a new series of injections next week. This will be done in [place], [place], and he will report to me afterwards how he feels. Problem 755300641665094 Osteophyte, vertebrae (M25.78) Active confirmed Problem 438557575 Other intervertebral disc degeneration, lumbar region (M51.36) Active confirmed He has had numerouus orthopedic operations over the years. He has had multiple procedures on his back to try and relieve the pain. After years of using various analgesics. He has found the best relieved to be with hydromorphone and ibuprofen and 5 mg prednisone every other day. I have refilled his hydromorphone which she promises he will make last. Problem 282591419 Peripheral edema (R60.9) Active confirmed His edema has resolved. Furosemide was continued. Problem Inflammatory arthritis (8568754) Inflammatory arthritis (M19.90) Active confirmed He continues on 5 mg of prednisone daily. He has good relief with this. He has an appointment with the pain specialist upcoming. Problem 55768967 Obstructive sleep apnea syndrome (G47.33) Active confirmed Problem 40074131 Vitamin D deficiency (E55.9) Active confirmed He will continue the vitamin D. Problem 156579649420649 Primary osteoarthritis of left hip (M16.12) Active confirmed He recently had a left hip replacement because of end-stage osteoarthritis of the joint. Problem 706832922 Morbid obesity (E66.01) Active confirmed He now has the Zepbound. He has lost 7 pounds. He was continued on unchanged dose. Problem 453761488 History of depression (Z86.59) Active confirmed His mood is depressed as he is coping with multiple illnesses and weakness. He has not worked in a prolonged period of time.He has gained weight recently. Despite his efforts at weight loss. Problem 296011023 History of prostate cancer (Z85.46) Active confirmed There is no sign of recurrent prostate cancer at this time. He sees urologist regularly and his PSAs have been low. Problem 41151020 Spinal stenosis of lumbar region with neurogenic claudication (M48.062) Active confirmed If it occurs again may be necessary to image the spinal cord in the cervical area. Problem 89248962 Acute congestive heart failure, unspecified heart failure type (I50.9) Active confirmed He seems quite stable today and is free of tachypnea. His pulmonary examination was unremarkable and his neck veins are flat. Problem 956595916128 S/P total left hip arthroplasty (Z96.642) Active confirmed He has recovered from surgery and has only occasional pain at the incision. Vital Signs Heart Rate 64 /min 06/27/2025 LA: 174/97 Temperature 97.1 degrees Fahrenheit 06/27/2025 LA: 174/97 Oximetry 96 % 11/16/2024 Blood pressure diastolic 90 mm Hg 07/03/2025 Height 69 in 07/03/2025 Blood pressure systolic 148 mm Hg 07/03/2025 Weight 271 lbs 07/03/2025 BMI 40.02 kg/m2 07/03/2025 Encounters Encounter Location Date Provider Diagnosis Curtis English III, MD [address] [place] [address] [place] [phone] 07/03/2025 Curtis English Hypertension I10 ; History of prostate cancer Z85.46 and Obstructive sleep apnea syndrome G47.33 Curtis English III, MD [address] [place] [address] [place] [address] 08/16/2024 Curtis English Hypertension I10 ; Morbid obesity E66.01 ; Spinal stenosis of lumbar region with neurogenic claudication M48.062 ; History of depression Z86.59 ; Peripheral edema R60.9 ; Acute congestive heart failure, unspecified heart failure type I50.9 ; S/P total left hip arthroplasty Z96.642 and History of prostate cancer Z85.46 Curtis English III, MD [address] [place] [address] [place] [address] 09/20/2024 Curtis English Hypertension I10 ; Morbid obesity E66.01 ; History of prostate cancer Z85.46 ; Mixed hyperlipidemia E78.2 and History of depression Z86.59 Curtis English III, MD [address] [place] [address] [place] [address] 11/16/2024 Curtis English Hypertension I10 ; Morbid obesity E66.01 ; History of prostate cancer Z85.46 ; Mixed hyperlipidemia E78.2 ; History of depression Z86.59 ; Spinal stenosis of lumbar region with neurogenic claudication M48.062 and Peripheral edema R60.9 Curtis English III, MD [address] [place] [address] [place] [address] 11/18/2024 Curtis English Weakness R53.1 ; Mor bid obesity E66.01 ; History of prostate cancer Z85.46 ; Hypertension I10 ; Mixed hyperlipidemia E78.2 ; Spinal stenosis of lumbar region with neurogenic claudication M48.062 and Acute congestive heart failure, unspecified heart failure type I50.9 Curtis English III, MD [address] [place] [address] [place] [address] 12/30/2024 Curtis English Mixed hyperlipidemia E78.2 ; Morbid obesity E66.01 ; History of prostate cancer Z85.46 ; Other intervertebral disc degeneration, lumbar region M51.36 ; Spinal stenosis of lumbar region with neurogenic claudication M48.062 ; History of depression Z86.59 ; Acute congestive heart failure, unspecified heart failure type I50.9 and S/P total left hip arthroplasty Z96.642 Curtis English III, MD [address] [place] [address] [place] [address] 02/15/2025 Curtis English Morbid obesity E66.0 1 ; History of prostate cancer Z85.46 ; Hypertension I10 ; Mixed hyperlipidemia E78.2 ; History of depression Z86.59 ; Spinal stenosis of lumbar region with neurogenic claudication M48.062 ; Other chronic pain G89.29 ; Peripheral edema R60.9 and Acute congestive heart failure, unspecified heart failure type I50.9 Curtis English III, MD [address] [place] [address] [place] [address] 03/16/2025 Curtis English Morbid obesity E66.0 1 ; History of prostate cancer Z85.46 ; Inflammatory arthritis M19.90 ; Mixed hyperlipidemia E78.2 ; Other intervertebral disc degeneration, lumbar region M51.36 ; Spinal stenosis of lumbar region with neurogenic claudication M48.062 ; History of depression Z86.59 ; S/P total left hip arthroplasty Z96.642 and Hypomagnesemia E83.42 Curtis English III, MD [address] [place] [address] [place] [address] 04/18/2025 Curtis English Morbid obesity E66.0 1 ; Other intervertebral disc degeneration, lumbar region M51.36 ; Spinal stenosis of lumbar region with neurogenic claudication M48.062 ; History of depression Z86.59 ; Mixed hyperlipidemia E78.2 ; History of prostate cancer Z85.46 ; Hypertension I10 ; Acute congestive heart failure, unspecified heart failure type I50.9 and S/P total left hip arthroplasty Z96.642 Curtis English III, MD [address] [place] [address] [place] [address] 05/16/2025 Curtis English Morbid obesity E66.0 1 ; Other intervertebral disc degeneration, lumbar region M51.36 ; Spinal stenosis of lumbar region with neurogenic claudication M48.062 ; History of depression Z86.59 ; Mixed hyperlipidemia E78.2 ; Acute congestive heart failure, unspecified heart failure type I50.9 and S/P total left hip arthroplasty Z96.642 Curtis English III, MD [address] [place] [address] [place] [address] 06/23/2025 Curtis English Morbid obesity E66.0 1 ; Spinal stenosis of lumbar region with neurogenic claudication M48.062 ; History of depression Z86.59 ; Mixed hyperlipidemia E78.2 ; Peripheral edema R60.9 ; S/P total left hip arthroplasty Z96.642 ; Acute congestive heart failure, unspecified heart failure type I50.9 and Obstructive sleep apnea syndrome G47.33 Curtis English III, MD [address] [place] [address] [place] [address] 06/27/2025 Curtis English Morbid obesity E66.0 1 ; Hypertension I10 ; Spinal stenosis of lumbar region with neurogenic claudication M48.062 ; History of depression Z86.59 ; Peripheral edema R60.9 ; S/P total left hip arthroplasty Z96.642 and Obstructive sleep apnea syndrome G47.33 Curtis English III, MD [address] [place] [address] [place] [address] 07/12/2024 Curtis English III, MD [address] [place] [address] [place] [address] 08/01/2024 Curtis English III, MD [address] [place] [address] [place] [address] 08/19/2024 Curtis English III, MD [address] [place] [address] [place] [address] 11/14/2024 Curtis English III, MD [address] [place] [address] [place] [address] 02/27/2025 Curtis English III, MD [address] [place] [address] [place] [address] 03/22/2025 Curtis English III, MD [address] [place] [address] [place] [address] 05/23/2025 Curtis English III, MD [address] [place] [address] [place] [address] 05/31/2025 Curtis English III, MD [address] [place] [address] [place] [address] 06/26/2025 Curits English III, MD [address] [place] [address] [place] [address] 06/27/2025 Curtis English Assessments Encounter Date Diagnosis (ICD Code) Assessment Notes Treat ment Notes Treatment Clinical Notes 07/03/2025 Hypertension (ICD-10 - I10) 08/16/2024 Hypertension (ICD-10 - I10) His blood pressure today is 139/80. He does not have renal artery stenosis.. His blood pressure we followed carefully on current medication. 08/16/2024 Morbid obesity (ICD-10 - E66.01) He has not gained weight since his last visit. He is using Wegovy. Dose will be increased to 10 mg. 09/20/2024 Hypertension (ICD-10 - I10) His systolic blood pressure is 142. He has lost 1 pound. No change in his medication was made. We discussed aggressive sodium restriction and weight loss. 09/20/2024 Morbid obesity (ICD-10 - E66.01) He has lost 1 pound since his last visit and is very discouraged. We have discussed his weight loss strategy in detail. I have increased his zepbound to 15 mg. 11/16/2024 Hypertension (ICD-10 - I10) His systolic blood pressure is stable. He has lost 10 pounds since July of 2024. No change in his medication was made. We discussed aggressive sodium restriction and weight loss. 11/16/2024 Morbid obesity (ICD-10 - E66.01) He has lost 10 pounds since his July and is very encouraged. We have discussed his weight loss strategy in detail. I have increased his zepbound to 15 mg. 11/18/2024 Weakness (ICD-10 - R53.1) The weakness he describes lasted only a couple of minutes and resolved immediately without tingling or sensory phenomena. His examination today is unremarkable. He is taking 81 mg of aspirin daily and will have imaging of his central nervous system. I have asked for a neurology consultation. 11/18/2024 Morbid obesity (ICD-10 - E66.01) He has lost 10 pounds since his July and is very encouraged. We have discussed his weight loss strategy in detail. I have increased his zepbound to 15 mg. 12/30/2024 Mixed hyperlipidemia (ICD-10 - E78.2) Comprehensive blood work with a fasting lipid profile is being done regularly. Substantial amounts of weight. 12/30/2024 Morbid obesity (ICD-10 - E66.01) He currently weighs 272 pounds. He has lost 8 pounds since his last visit and 34 pounds since his treatment began. He was continued without change. He is beginning to feel much better 02/15/2025 Morbid obesity (ICD-10 - E66.01) He has gained 7 pounds since his last visit. He admits to stress eating. His dose of furosemide was lowered and likely he is retaining fluid. The dose of furosemide was returned to 40 mg daily with potassium supplementation. He was continued on the Zepbound. 02/15/2025 History of prostate cancer (ICD-10 - Z85.46) There is no sign of recurrent prostate cancer at this time. He sees urologist regularly and his PSAs have been low. 03/16/2025 Morbid obesity (ICD-10 - E66.01) He has lost an additional 5 pounds. The Zepbound was continued without change. 03/16/2025 History of prostate cancer (ICD-10 - Z85.46) There is no sign of recurrent prostate cancer at this time. He sees urologist regularly and his PSAs have been low. 04/18/2025 Other intervertebral disc degeneration, lumbar region (ICD-10 - M51.36) He has had numerouus orthopedic operations over the years. He has had multiple procedures on his back to try and relieve the pain. After years of using various analgesics. He has found the best relieved to be with hydromorphone and ibuprofen and 5 mg prednisone every other day. I have refilled his hydromorphone which she promises he will make last. 04/18/2025 Morbid obesity (ICD-10 - E66.01) After a period of weight loss he has lost an excess to the Zepbound. Since the lost in excess to that drug she has gained 4 pounds. We will try a series of topiramate or contrave or phentermine. 05/16/2025 Other intervertebral disc degeneration, lumbar region (ICD-10 - M51.36) He has had numerouus orthopedic operations over the years. He has had multiple procedures on his back to try and relieve the pain. After years of using various analgesics. He has found the best relieved to be with hydromorphone and ibuprofen and 5 mg prednisone every other day. I have refilled his hydromorphone which she promises he will make last. 05/16/2025 Morbid obesity (ICD-10 - E66.01) He has gained 2 pounds since his last visit. We have stopped at topiramate as ineffective. We discussed phentermine. He lost weight with this drug in the past. 06/23/2025 Morbid obesity (ICD-10 - E66.01) He now has the Zepbound. He has lost 7 pounds. He was continued on unchanged dose. 06/23/2025 Spinal stenosis of lumbar region with neurogenic claudication (ICD-10 - M48.062) If it occurs again may be necessary to image the spinal cord in the cervical area. 06/27/2025 Hypertension (ICD-10 - I10) His blood pressure has been elevated recently. I have increased the valsartan to 320 mg 06/27/2025 Morbid obesity (ICD-10 - E66.01) He now has the Zepbound. He has lost 7 pounds. He was continued on unchanged dose. 07/03/2025 History of prostate cancer (ICD-10 - Z85.46) 08/16/2024 Spinal stenosis of lumbar region with neurogenic claudication (ICD-10 - M48.062) He has had numerous surgical procedures on thoracic and lumbar spine. He continues to have severe pain. This is relieved occasionally with hydromorphone. He does not take it regularly. 09/20/2024 History of prostate cancer (ICD-10 - Z85.46) The recent PSA was detectable at 0.08. This will be communicated to the urology office and a history of their PSAs will be requested. It represents a possible biochemical relapse. 11/16/2024 History of prostate cancer (ICD-10 - Z85.46) The recent PSA was detectable at 0.06. He is free of symptoms. He will continue to be managed by his urologist. 11/18/2024 History of prostate cancer (ICD-10 - Z85.46) The recent PSA was detectable at 0.06. He is free of symptoms. He will continue to be managed by his urologist. 12/30/2024 History of prostate cancer (ICD-10 - Z85.46) There is no sign of recurrent prostate cancer at this time. He sees urologist regularly and his PSAs have been low. 02/15/2025 Hypertension (ICD-10 - I10) His blood pressure is stable today and does not require a change in his regimen. 03/16/2025 Inflammatory arthritis (ICD-10 - M19.90) He continues on 5 mg of prednisone daily. He has good relief with this. He has an appointment with the pain specialist upcoming. 04/18/2025 Spinal stenosis of lumbar region with neurogenic claudication (ICD-10 - M48.062) If it occurs again may be necessary to image the spinal cord in the cervical area. 05/16/2025 Spinal stenosis of lumbar region with neurogenic [...] Despite his efforts at weight loss. 06/27/2025 Spinal stenosis of lumbar region with neurogenic claudication (ICD-10 - M48.062) If it occurs again may be necessary to image the spinal cord in the cervical area. 07/03/2025 Obstructive sleep apnea syndrome (ICD-10 - G47.33) 08/16/2024 History of depressio n (ICD-10 - Z86.59) His mood is depressed as he is coping with multiple illnesses and weakness. He has not worked in a prolonged period of time.He has gained weight recently. Despite his efforts at weight loss. 09/20/2024 Mixed hyperlipidemia (ICD-10 - E78.2) He is going to resume taking his statin medication. This was stopped recently because of symptoms. A trial of the atorvastatin will be initiated. 11/16/2024 Mixed hyperlipidemia (ICD-10 - E78.2) He is going to resume taking his statin medication. This was stopped recently because of symptoms. A trial of the atorvastatin will be initiated. 11/18/2024 Hypertension (ICD-10 - I10) His blood pressure is stable today and does not require a change in his regimen. 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 He has had multiple procedures on his back to try and relieve the pain. After years of using various analgesics. He has found the best relieved to be with hydromorphone and ibuprofen and 5 mg prednisone every other day. I have refilled his hydromorphone which she promises he will make last. 02/15/2025 Mixed hyperlipidemia (ICD-10 - E78.2) Comprehensive blood work with a fasting lipid profile is being done regularly. Substantial amounts of weight. 03/16/2025 Mixed hyperlipidemia (ICD-10 - E78.2) Comprehensive blood work with a fasting lipid profile is being done regularly. Substantial amounts of weight. 04/18/2025 History of depressio n (ICD-10 - Z86.59) His mood is depressed as he is coping with multiple illnesses and weakness. He has not worked in a prolonged period of time.He has gained weight recently. Despite his efforts at weight loss. 05/16/2025 History of depressio n (ICD-10 - Z86.59) His mood is depressed as he is coping with multiple illnesses and weakness. He has not worked in a prolonged period of time.He has gained weight recently. Despite his efforts at weight loss. 06/23/2025 Mixed hyperlipidemia (ICD-10 - E78.2) Comprehensive blood work with a fasting lipid profile is being done regularly. Substantial amounts of weight. 06/27/2025 History of depressio n (ICD-10 - Z86.59) His mood is depressed as he is coping with multiple illnesses and weakness. He has not worked in a prolonged period of time.He has gained weight recently. Despite his efforts at weight loss. 08/16/2024 Peripheral edema (ICD-10 - R60.9) He reports that there is no peripheral edema. His furosemide was continued. 09/20/2024 History of depressio n (ICD-10 - Z86.59) His mood is depressed as he is coping with multiple illnesses and weakness. He has not worked in a prolonged period of time.He has gained weight recently. Despite his efforts at weight loss. 11/16/2024 History of depressio n (ICD-10 - Z86.59) His mood is depressed as he is coping with multiple illnesses and weakness. He has not worked in a prolonged period of time.He has gained weight recently. Despite his efforts at weight loss. 11/18/2024 Mixed hyperlipidemia (ICD-10 - E78.2) He is going to resume taking his statin medication. This was stopped recently because of symptoms. A trial of the atorvastatin will be initiated. 12/30/2024 Spinal stenosis of lumbar region with neurogenic claudication (ICD-10 - M48.062) If it occurs again may be necessary to image the spinal cord in the cervical area. 02/15/2025 History of depressio n (ICD-10 - Z86.59) His mood is depressed as he is coping with multiple illnesses and weakness. He has not worked in a prolonged period of time.He has gained weight recently. Despite his efforts at weight loss. 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 He has had multiple procedures on his back to try and relieve the pain. After years of using various analgesics. He has found the best relieved to be with hydromorphone and ibuprofen and 5 mg prednisone every other day. I have refilled his hydromorphone which she promises he will make last. 04/18/2025 Mixed hyperlipidemia (ICD-10 - E78.2) Comprehensive blood work with a fasting lipid profile is being done regularly. Substantial amounts of weight. 05/16/2025 Mixed hyperlipidemia (ICD-10 - E78.2) Comprehensive blood work with a fasting lipid profile is being done regularly. Substantial amounts of weight. 06/23/2025 Peripheral edema (ICD-10 - R60.9) His edema has resolved. Furosemide was continued. 06/27/2025 Peripheral edema (ICD-10 - R60.9) His edema has resolved. Furosemide was continued. 08/16/2024 Acute congestive heart failure, unspecified heart failure type (ICD-10 - I50.9) His edema is resolvinng and he has lost 12 pounds. The furosemide will continue at 20 mg twice a day for several more days. The dose will then be reduced when the edema has resolved. 11/16/2024 Spinal stenosis of lumbar region with neurogenic claudication (ICD-10 - M48.062) He has had numerous surgical procedures on thoracic and lumbar spine. He continues to have severe pain. This is relieved occasionally with hydromorphone. He does not take it regularly. 11/18/2024 Spinal stenosis of lumbar region with neurogenic claudication (ICD-10 - M48.062) If it occurs again may be necessary to image the spinal cord in the cervical area. 12/30/2024 History of depressio n (ICD-10 - Z86.59) His mood is depressed as he is coping with multiple illnesses and weakness. He has not worked in a prolonged period of time.He has gained weight recently. Despite his efforts at weight loss. 02/15/2025 Spinal stenosis of lumbar region with neurogenic claudication (ICD-10 - M48.062) If it occurs again may be necessary to image the spinal cord in the cervical area. 03/16/2025 Spinal stenosis of lumbar region with neurogenic claudication (ICD-10 - M48.062) If it occurs again may be necessary to image the spinal cord in the cervical area. 04/18/2025 History of prostate cancer (ICD-10 - Z85.46) There is no sign of recurrent prostate cancer at this time. He sees urologist regularly and his PSAs have been low. 05/16/2025 Acute congestive heart failure, unspecified heart failure type (ICD-10 - I50.9) He seems quite stable today and is free of tachypnea. His pulmonary examination was unremarkable and his neck veins are flat. 06/23/2025 S/P total left hip arthroplasty (ICD-10 - Z96.642) He has recovered from surgery and has only occasional pain at the incision. 06/27/2025 S/P total left hip arthroplasty (ICD-10 - Z96.642) He has recovered from surgery and has only occasional pain at the incision. 08/16/2024 S/P total left hip arthroplasty (ICD-10 - Z96.642) He is at home recovering from his recent surgery and reports an improvement in pain. 11/16/2024 Peripheral edema (ICD-10 - R60.9) He reports that there is no peripheral edema. His furosemide was continued. 11/18/2024 Acute congestive heart failure, unspecified heart failure type (ICD-10 - I50.9) He seems quite stable today and is free of tachypnea. His pulmonary examination was unremarkable and his neck veins are flat. 12/30/2024 Acute congestive heart failure, unspecified heart failure type (ICD-10 - I50.9) He seems quite stable today and is free of tachypnea. His pulmonary examination was unremarkable and his neck veins are flat. 02/15/2025 Other chronic pain (ICD-10 - G89.29) His pain is controlled at this time with current medications. He has a new orthopedic surgeon, who will try a new series of injections next week. This will be done in [place], [place], and he will report to me afterwards how he feels. 03/16/2025 History of depressio n (ICD-10 - Z86.59) His mood is depressed as he is coping with multiple illnesses and weakness. He has not worked in a prolonged period of time.He has gained weight recently. Despite his efforts at weight loss. 04/18/2025 Hypertension (ICD-10 - I10) His blood pressure is stable today and does not require a change in his regimen. 05/16/2025 S/P total left hip arthroplasty (ICD-10 - Z96.642) He has recovered from surgery and has only occasional pain at the incision. 06/23/2025 Acute congestive heart failure, unspecified heart failure type (ICD-10 - I50.9) He seems quite stable today and is free of tachypnea. His pulmonary examination was unremarkable and his neck veins are flat. 06/27/2025 Obstructive sleep apnea syndrome (ICD-10 - G47.33) 08/16/2024 History of prostate cancer (ICD-10 - Z85.46) The recent PSA was detectable at 0.08. This will be communicated to the urology office and a history of their PSAs will be requested. It represents a possible biochemical relapse. 12/30/2024 S/P total left hip arthroplasty (ICD-10 - Z96.642) He is at home recovering from his recent surgery and reports an improvement in pain. 02/15/2025 Peripheral edema (ICD-10 - R60.9) He reports that there is no peripheral edema. His furosemide was continued. 03/16/2025 S/P total left hip arthroplasty (ICD-10 - Z96.642) He is at home recovering from his recent surgery and reports an improvement in pain. 04/18/2025 Acute congestive heart failure, unspecified heart failure type (ICD-10 - I50.9) He seems quite stable today and is free of tachypnea. His pulmonary examination was unremarkable and his neck veins are flat. 06/23/2025 Obstructive sleep apnea syndrome (ICD-10 - G47.33) 02/15/2025 Acute congestive heart failure, unspecified heart failure type (ICD-10 - I50.9) He seems quite stable today and is free of tachypnea. His pulmonary examination was unremarkable and his neck veins are flat. 03/16/2025 Hypomagnesemia (ICD-10 - E83.42) He was placed on magnesium recently but this has caused diarrhea. The drug was discontinued. A magnesium level has been requested. 04/18/2025 S/P total left hip arthroplasty (ICD-10 - Z96.642) He is at home recovering from his recent surgery and reports an improvement in pain. Plan Of Treatment Pending Test Test Name Order Date PROFILE, FASTING (COMPREHENSIVE METABOLI C) 09/22/2023 PROFILE, FASTING (COMPREHENSIVE METABOLI C) 06/19/2020 PROFILE, FASTING (COMPREHENSIVE METABOLI C) 11/14/2020 PROFILE, FASTING (COMPREHENSIVE METABOLI C) 06/21/2024 PROFILE, FASTING (COMPREHENSIVE METABOLI C) 05/27/2024 PROFILE, FASTING (COMPREHENSIVE METABOLI C) 01/08/2024 PROFILE, FASTING (COMPREHENSIVE METABOLI C) 12/30/2024 PROFILE, FASTING (COMPREHENSIVE METABOLI C) 04/14/2023 PROFILE, FASTING (COMPREHENSIVE METABOLI C) 05/31/2020 PROFILE, FASTING (COMPREHENSIVE METABOLI C) 02/06/2020 PROFILE, RANDOM (COMPREHENSIVE METABOLIC ) 11/24/2019 PROFILE, RANDOM (COMPREHENSIVE METABOLIC ) 07/03/2025 PROFILE, RANDOM (COMPREHENSIVE METABOLIC ) 07/07/2022 PROFILE, RANDOM (COMPREHENSIVE METABOLIC ) 12/27/2019 LIPID PANEL 05/31/2020 LIPID PANEL 02/06/2020 LIPID PANEL 06/19/2020 LIPID PANEL 11/14/2020 LIPID PANEL 04/14/2023 LDH 09/22/2023 TSH (THYROID STIMULATING HORMONE) 2019 TSH (THYROID STIMULATING HORMONE) 2022 FERRITIN 12/27/2019 CPK 09/22/2023 VITAMIN B12 AND FOLATE 05/27/2024 PSA, TOTAL 05/27/2024 PSA, TOTAL 05/31/2020 PSA, TOTAL 02/06/2020 PSA, TOTAL 04/14/2023 PSA, TOTAL 07/03/2025 PSA, TOTAL 07/07/2022 PSA, TOTAL 06/19/2020 PSA, TOTAL 09/22/2023 PSA, TOTAL 06/21/2024 PSA, TOTAL 01/08/2024 PSA, TOTAL 12/30/2024 PSA, TOTAL 11/14/2020 RHEUMATOID FACTOR (RA, RF) 06/19/2020 CBC w DIFF 06/19/2020 CBC w DIFF 12/27/2019 CBC w DIFF 12/30/2024 CBC w DIFF 11/14/2020 CBC w DIFF 05/31/2020 CBC w DIFF 11/24/2019 CBC w DIFF 02/06/2020 CBC w DIFF 04/14/2023 CBC w DIFF 07/07/2022 CBC w DIFF 07/03/2025 SED RATE (ESR) 06/19/2020 PROTHROMBIN TIME (PT, INR) 01/30/2020 PARTIAL THROMBOPLASTIN TIME (PTT) 2019 ANTITHROMBIN III & AG (REFLEX) 0 HOMOCYSTEINE 01/30/2020 HLA-B27 ANTIGEN 06/19/2020 PROTEIN C ACTIVITY REFLEX AG 01/30/2020 PROTEIN C ANTIGEN 01/30/2020 PROTEIN S ACTIVITY REFLEX AG 01/30/2020 PROTEIN S TOTAL (ANTIGENIC) 01/30/2020 PT [id number] 01/30/2020 LUPUS ANTICOAGULANT PANEL 01/30/2020 FACTOR V LEIDEN 01/30/2020 XR CHEST 2 VIEW PA & LAT 11/24/2019 US RENAL BILATERAL 04/19/2024 MARION (BIGG) 06/19/2020 Echocardiogram 02/06/2020 Echocardiogram 09/22/2022 Sleep Study - Baseline 02/15/2025 PFT with DLCO and Blood Gases 09/22/2022 CBC WITH AUTO DIFF 09/22/2023 CBC WITH AUTO DIFF 06/21/2024 CBC WITH AUTO DIFF 01/08/2024 CBC WITH AUTO DIFF 05/27/2024 Complete Blood Count Auto Diff Comprehensive Met. Panel 07/03/2025 Magnesium 06/21/2024 Lipid Panel 09/22/2023 Lipid Panel 01/08/2024 Lipid Panel 12/30/2024 Lipid Panel 06/21/2024 Lipid Panel 05/27/2024 Lipid Panel 07/03/2025 Prostate Specific Antigen 07/03/2025 Vitamin D 25-OH Total 06/21/2024 Microalbumin, Random 09/22/2023 Hemoglobin A1c 09/22/2023 Next Appt Details Provider Name:Curtis Callene, 07/06/2025 10:30:00 AM, 10 [facility] [address], [place], [address], Provider Name:Curtis English, 07/12/2025 09:00:00 AM, 10 [facility] [address], [place], [address], Provider Name:Curtis Tameka, 06/27/2026 11:00:00 AM, 10 [facility] [address], [place], [address], Insurance Providers Payer Name Payer Address Payer Phone Subscriber Number Group Number Insured Name Patient Relationship to Insured Coverage Start Date Coverage End Date MEDICARE NGS [address] [place] [address] [id number] ANH AKHTAR Self - patient is the insured 5 [facility] CLAIM [facility] [address] [place] [address] [phone] [id number] AKHTAR ANH Self - patient is the insured 5 Medical (General) History Medical History History ICD Code essential hypertension lumbar radiculopathy spinal stenosis neurogenic claudication anterior vertebral disc degeneration, kenan mbar region morbid obesity history of prostate cancer history of cholelithiasis history of depression hyperlipidemia Glaucoma Surgical History Surgery Date(Month/Year) Left hip arthroplasty 06/2023 left eye cataract 04/23/[address] Vikram Frausto 11/20 020 Hospitalization History Reason Date(Month/Year) No history wide resection right ulnar nerve schwann jeffrey 2007 cataract surgeries bilateral total knee replacements umbilical herniorrhaphy cholecystectomy appendectomy extension of spinal fusion to L2 2017 lumbar decompression [facility] Dr. Meraz 2012 prostatectomy for prostate cancer 2015 Spinal fusion 11/2019
--- OUTSIDE RECORDS SUMMARY | 2025-07-03 12:16 | XMS_ITS | Encounter Summary ---
Author Organization [facility] Address [address] [place] [id number] Phone Care Team Providers Care Telegraphic Instrument Supervisor Name Role Phone Curtis English MD Primary Care Provider [phone] Reason for Referral * MRI/CAT Scan - Closed Specialty Diagnoses / Procedures Referred By Contac t Referred To Contact Radiology Diagnoses Spinal stenosis of lumbar region with neurogenic claudication Thoracic radiculopathy Procedures CT Thoracic Spine Den Sue MD Phone: tel: mailto:[email or web address] Referral ID Status Reason Start Date Expiration Date Visits Re quested Visits Authorized [id number] Closed 10/07/2019 11/05/2019 1 1 Encounter Details Date Type Department Care Team (Latest Contact Info) Description 10/20/2019 Ancillary Orders Virtual Department [address] [place] [address] Den Sue MD [address] [place] [address] [email or web address] Spinal stenosis of lumbar region with neurogenic claudication; Thoracic radiculopathy Social History Tobacco Use Types Packs/Day Years Used Date Smoking Tobacco: Never Assessed Sex and Gender Information Value Date Recorded Sex Assigned at Not on file Legal Sex Male 5:36 PM EST Gender Identity Not on file Sexual Orientation Not on file documented as of this encounter Plan of Treatment Not on file documented as of this encounter Results * CT THORACIC SPINE WITH CONTRAST (11/21/2019 11:52 AM EST) Anatomical Region Laterality Modality T-spine Computed Tomogra phy 11/21/2019 12:0 3 PM EST Addenda Addendum by Jodee Fox MD on 12/07/2019 3:33 PM EST COMPARISON: 05/04/2008 MR. TECHNIQUE: Helical scanning was performed from the cervicothoracic junction through the L2-3 level without intravenous contrast administration. Sagittal and coronal reformats were generated and reviewed. Automated exposure control was utilized. FINDINGS: There is a 3 mm anterolisthesis of the T3 in relation to T4 vertebral bodies and a 3 mm anterolisthesis of the T4 in relation to T5 bodies. No vertebral body or posterior element fractures are demonstrated. There is moderately prominent spondylosis most pronounced along the right lateral aspect of the mid and lower thoracic levels. No large thoracic disc protrusion or bony central canal or advanced neural foraminal stenosis present. At the L1-2 level there is narrowing of the thecal sac, which measures approximately 12 mm in AP dimension but 7 mm in width due to epidural fat along the dorsal and lateral aspects of the sac. No bony canal stenosis. Prominent degenerative facet changes are present. At the L2-3 level there is posterior spondylosis which narrows the AP dimensions of the sac to approximately 8 mm. No high-grade bony neural foraminal stenosis. No paraspinal soft tissue mass. Visualized basilar lung arriola are clear. IMPRESSION: No bony central canal stenosis demonstrated in the thoracic levels. Minimal grade 1 >>> T3-4 <<< and T4-5 spondylolisthesis. Narrowing of the thecal sac at the L1-2 level due to epidural fat. Central canal stenosis at L2-3 apparently related to spondylosis and advanced >>> FACET <<< osteoarthropathy. TOTAL CTDIvol: >>> 58.90 <<< mGy POS - [id number] Edited by: Beena Moreno on 12/05/2019 9:50 PM Impressions 11/21/2019 12:12 PM EST No bony central canal stenosis demonstrated in the thoracic levels. Minimal grade 1 C3-4 and T4-5 spondylolisthesis. Narrowing of the thecal sac at the L1-2 level due to epidural fat. Central canal stenosis at L2-3 apparently related to spondylosis and advanced is then osteoarthropathy. TOTAL CTDIvol: mGy POS - [id number] Narrative 11/21/2019 12:12 PM EST COMPARISON: 05/04/2008 MR TECHNIQUE: Helical scanning was performed from the cervicothoracic junction through the L2- 3 level without intravenous contrast administration. Sagittal and coronal reformats were generated and reviewed. Automated exposure control was utilized. FINDINGS: There is a 3 mm anterolisthesis of the T3 in relation to T4 vertebral bodies and a 3 mm anterolisthesis of the T4 relation to T5 bodies. No vertebral body or posterior element fractures are demonstrated. There is moderately prominent spondylosis most pronounced along the right lateral aspect of the mid and lower thoracic levels. No large thoracic disc protrusion or bony central canal or advanced neural foraminal stenosis present. At the L1-2 level there is narrowing of the thecal sac, which measures approximately 12 mm in AP dimension but 7 mm in width due to epidural fat along the dorsal and lateral aspects of the sac. No bony canal stenosis. Prominent degenerative facet changes are present. At the L2-3 level there is posterior spondylosis which narrows the AP dimensions of the sac to approximately 8 mm. No high-grade bony neural foraminal stenosis. No paraspinal soft tissue mass. Visualized basilar lung arriola are clear. Procedure Note Jodee Fox MD - 11/21/2019 COMPARISON: 05/04/2008 MR TECHNIQUE: Helical scanning was performed from the cervicothoracicjunction through the L2-3 level without intravenous contrastadministration. Sagittal and coronal reformats were generated andreviewed. Automated exposure control was utilized. FINDINGS: There is a 3 mm anterolisthesis of the T3 in relation to T4 vertebralbodies and a 3 mm anterolisthesis of the T4 relation to T5 bodies. Novertebral body or posterior element fractures are demonstrated. There ismoderately prominent spondylosis most pronounced along the right lateralaspect of the mid and lower thoracic levels. No large thoracic discprotrusion or bony central canal or advanced neural foraminal stenosispresent. At the L1-2 level there is narrowing of the thecal sac, which measuresapproximately 12 mm in AP dimension but 7 mm in width due to epidural fatalong the dorsal and lateral aspects of the sac. No bony canal stenosis.Prominent degenerative facet changes are present. At the L2-3 level thereis posterior spondylosis which narrows the AP dimensions of the sac toapproximately 8 mm. No high-grade bony neural foraminal stenosis. No paraspinal soft tissue mass. Visualized basilar lung arriola areclear. IMPRESSION: No bony central canal stenosis demonstrated in the thoracic levels.Minimal grade 1 C3-4 and T4-5 spondylolisthesis. Narrowing of the thecal sac at the L1-2 level due to epidural fat.Central canal stenosis at L2-3 apparently related to spondylosis andadvanced is then osteoarthropathy. TOTAL CTDIvol: mGy POS - [id number] Den Sue MD IMG CT XSPECIALTY ORDERAB LES Edited Result - Final documented in this encounter Visit Diagnoses Diagnosis Spinal stenosis of lumbar region with neurogenic claudication Thoracic radiculopathy Thoracic or lumbosacral neuritis or radiculitis, unspecified Spinal stenosis of lumbar region with neurogenic claudication Thoracic radiculopathy Thoracic or lumbosacral neuritis or radiculitis, unspecified documented in this encounter Care Teams Telegraphic Instrument Supervisor Relationship Specialty Start Date End Date Curtis English MD [address] [place] [id number] PCP - General Medical Oncology 05/11/23 documented as of this encounter Additional Source Comments The information contained in this document represents components of the legal health record. It is not the complete legal health record.[facility]
== END 2025-07-03 09:53 | disposition home or self-care (01) ==
LOC: HO.10HDL 09:52
PROVIDERS: Visit Provider Internal Medicine Medical Oncology
DX: Z12.5 Encounter for screening for malignant neoplasm of prostate (principal); I10 Essential (primary) hypertension; Z85.46 Personal history of malignant neoplasm of prostate; G47.33 Obstructive sleep apnea (adult) (pediatric)
CPT/HCPCS: 36415; 80053; 80061; 84153; 85025